=== PATIENT | male | born 1960 | race Caucasian/White ===

== ENCOUNTER 2020-03-19 12:48 | Inpatient (IN) | payer OTHER, SELFPAY ==
[2020-03-19] VITALS (38 sets, daily range): BP systolic 155–184; BP diastolic 89–109; PULSE 74–118; RESP 13–24; TEMP 36.3–36.8; O2SAT 90–100; BMI 28.8
--- NOTE | ~2020-03-19 | MR_ITS ---
EXAMINATION: MR MRCP wo/w con/w 3D wo ind DATE: 03/21/2020 13:34 INDICATION: Pancreatitis with elevated bilirubin TECHNIQUE: Magnetic resonance imaging (MRI) of the abdomen was performed without and with intravenous contrast. Sequences included coronal T2-weighted SS-FSE ARC, coronal T2-weighted FS SS-FSE, coronal T2-weighted 2D FS FIESTA, Water:Coronal LAVA-Flex, sagittal T2-weighted SS-FSE ARC, axial SSFSE ARC, axial 3D DualEcho, axial DWI B=600, axial T1-weighted LAVA, FAT:Coronal LAVA-Flex, and coronal in and opposed phase LAVA-Flex. Thick-slab T2-weighted FRFSE-XL images were obtained for magnetic resonance cholangiopancreatography (MRCP). Maximum intensity projection 3-D reconstructions of the volumetric data were created by the technologist. Postcontrast sequences included a time course of axial T1-weig hted LAVA, FAT:Coronal LAVA-Flex, coronal in and opposed phase LAVA-Flex, and Water:Coronal LAVA-Flex . COMPARISON: CT, 03/19/2020 CONTRAST: Multihance, 20 cc FINDINGS: ABDOMEN MRI: There are trace pleural effusions. The heart size is normal. There is mild atelectasis o f the lung bases. The liver, spleen, gallbladder, and adrenal glands are normal. The kidneys are unre markable. There is moderate edema around the head of the pancreas. A small amount of fluid tracks int o the retroperitoneum. There is an approximately 4.5 x 4.2 cm area of T1 signal hyperintensity in the body of the pancreas in the same distribution of the hypoattenuating area seen on the comparison CT. There is absent enhancement of the pancreas in this segment. There are no pathologically enlarged ab dominal lymph nodes. There are no dilated loops of bowel. ABDOMEN MRCP: There is no intrahepatic or extra hepatic biliary dilatation. No bile duct stone or str icture is identified. Respiratory motion artifact limits the MRCP portion of the examination. The poole creatic duct is not definitely identified in the segment affected by hemorrhagic conversion. The panc reatic duct is not dilated in the tail. IMPRESSION: 1. Acute pancreatitis now with hemorrhagic conversion in the body of the pancreas. Reviewed, dictated and finalized at location A. IMPRESSION: 1. Acute pancreatitis now with hemorrhagic conversion in the body of the pancre as.
--- NOTE | ~2020-03-19 | US_ITS ---
EXAMINATION: US right upper quadrant DATE: 03/20/2020 09:22 INDICATION: Acute pancreatitis. TECHNIQUE: Multiple grayscale and Doppler ultrasound images of the abdomen were obtained. COMPARISON: CT abdomen and pelvis 03/19/2020 FINDINGS: The head and body of the pancreas are enlarged with heterogeneous echogenicity, consistent with acute pancreatitis. There is diffuse hepatic steatosis. No liver surface nodularity. There is no rmal flow in main portal vein. The gallbladder is normal in size. No gallstones or gallbladder wall t hickening. There was no sonographic Hernandez sign. The common duct is normal and measures 3 mm. IMPRESSION: 1. Acute interstitial pancreatitis. 2. Diffuse hepatic steatosis. Reviewed, dictated and finalized at location A.
--- NOTE | ~2020-03-19 | XR_ITS ---
EXAMINATION: XR chest 2V 03/19/2020 13:53 INDICATION: Chest pain PROCEDURE: 2 view chest COMPARISON: No prior studies for comparison. FINDINGS: The lungs are clear. The cardiomediastinal silhouette is within normal limits. There are no pleural effusions. There is no pneumothorax suspected. IMPRESSION: 1: NO ACUTE CARDIOPULMONARY DISEASE. Reviewed, dictated and finalized at location A.
--- NOTE | ~2020-03-19 | CT_ITS ---
EXAMINATION: CT abdomen pelvis w con DATE: 03/19/2020 13:49 INDICATION: Left lower quadrant abdominal pain. TECHNIQUE: Computed tomography (CT) of the abdomen and pelvis was performed with 100 mL Omnipaque 350 intravenous contrast. Automated exposure control and iterative reconstruction technique were employe d. The dose-length product was 760.70 mGy-cm. COMPARISON: None. FINDINGS: The visualized portions of the lung bases demonstrate mild atelectasis. No pleural effusion . The heart size is normal. There are coronary artery calcifications. No pericardial effusion. The li prasanna and spleen are normal. The gallbladder is normal in size. There is fat stranding and a small volu me of fluid around the duodenum and pancreas with hypoattenuation in the body segment of the pancreas , consistent with acute interstitial pancreatitis. The adrenal glands and left kidney are normal. The re is a 4 mm cyst in right kidney. The prostate is mildly enlarged. There is diverticulosis of the co osito without evidence of diverticulitis. There are changes of appendectomy, but a long stump of the ap pendix remains. There is a small umbilical hernia containing fat. There is subcutaneous edema in low anterior abdominal wall. There are no pathologically enlarged lymph nodes. There is mild thoracolumba r spondylosis. IMPRESSION: 1. Acute interstitial pancreatitis. Reviewed, dictated and finalized at location A.
--- NOTE | 2020-03-19 13:03 | ECG_ITS ---
Measurements Intervals [place] Rate: 84 P: 28 [place]: 180 QRS: -12 QRSD: 105 T: 30 QT: 383 QTc: 455 Interpretive Statements SINUS RHYTHM BORDERLINE R WAVE PROGRESSION, ANTERIOR LEADS INFERIOR INFARCT, AGE INDETERMINATE BASELINE WANDER- V1-V6 ABNORMAL ECG Electronically Signed On 03-19-2020 13:14:20 CDT by Son Lopez D.O.
[2020-03-19 13:15] LABS: Basophils Percent Auto 0.3 % (0.2-1.2); Eosinophils Percent Auto 0.1 % (0-4.4); Hematocrit 50.3 % (42.0-52.0); Hemoglobin 17.6 g/dL (14.0-18.0); Immature Granulocyte Absolute 0.08 K/mm3 (0.00-0.031); Immature Granulocyte Percent A 0.5 % (0-0.5); Lymphocytes Absolute Auto 1.93 K/mm3 (0.9-3.2); Lymphocytes Percent Auto 12.7 % (18.3-44.2); Mean Corpuscular Hemoglobin 31.1 pg (26-34); Mean Corpuscular Volume 88.9 fl (80-100); Mean Platelet Volume 9.7 fl (7.4-10.4); Monocytes Percent Auto 6.4 % (2.6-8.5); Neutrophils Absolute Auto 12.2 K/mm3 (1.3-6.7); Platelet Count Result 312 k/mm3 (150-375); Red Blood Count 5.66 M/mm3 (4.6-6.20); Red Cell Distribution Width 13.3 % (11.5-14.5); White Blood Count 15.2 K/mm3 (4.5-10.0)
[2020-03-19 13:24] LABS: Partial Thromboplastin Time 24.2 SECONDS (22.3-36.8); Prothrombin Time 12.4 Seconds (11.1-14.7)
[2020-03-19 13:32] LABS: Anion Gap 9 mmol/L (8-16); Blood Urea Nitrogen 10 mg/dL (9-20); Calcium 9.2 mg/dL (8.4-10.2); Carbon Dioxide 25 mmol/L (22-30); Chloride 100 mmol/L (98-107); Estimated CRCL calculation 84 ml/min; Estimated Glomerular Filt Rate > 60; Glucose 257 mg/dL (75-110); Sodium 134 mmol/L (137-145)
[2020-03-19 13:35] LABS: Glucose Point of Care 238 (65-105)
[2020-03-19 13:48] LABS: Troponin I < 0.012 ng/mL (0.000-0.034)
[2020-03-19] MEDS: MORPHINE SULFATE (*CRX) 4 MG/ML INJ IV PUSH ×5 (14:08→22:03)
[2020-03-19 14:59] LABS: Alanine Aminotransferase 115 U/L (4-50); Albumin Level 4.3 g/dL (3.5-5.1); Alkaline Phosphatase 190 U/L (38-126); Aspartate Amino Transferase 76 U/L (17-59); Bilirubin,Total 0.6 mg/dL (0.2-1.3)
--- NOTE | 2020-03-19 15:16 | ED.GENADULT ---
HPI - General Adult General Chief complaint: Chest Pain Stated complaint: chest pain Time Seen by Provider: 03/19/20 12:58 History of Present Illness HPI narrative: Patient is a 59-year-old male who presents ER with abdominal pain. It goes from his umbilicus up into his lower chest. Began early in the morning and has slowly worsened throughout today. Associate with some nausea no vomiting. Had an episode of diaphoresis. Sweating and chest discomfort seems similar to a previous RI he has had which gave him concern. Has not been drinking alcohol. No diarrhea today but reports he had an episode of diarrhea that lasted 2 weeks up until couple days ago. Patient feels hungry and thirsty. Related Data Home Medications Medication Instructions Recorded Confirmed aspirin 325 mg PO DAILY 03/19/20 03/19/20 insulin detemir U-100 [Levemir 130 unit SUBCUT DAILY 03/19/20 03/19/20 FlexTouch U-100 Insuln] lisinopril 2.5 mg PO DAILY 03/19/20 03/19/20 rosuvastatin 20 mg PO DAILY 03/19/20 03/19/20 Allergies Allergy/AdvReac Type Severity Reaction Status Date / Time No Known Allergies Allergy Verified 03/19/20 13:13 Review of Systems Review of Systems: All systems reviewed & are unremarkable except as noted in HPI and below Constitutional: Constitutional: Denies chills, Denies fever(s) and Denies weakness ENT: Denies nasal congestion and Denies sore throat Cardiovascular: Cardiovascular: Reports chest pain, Denies rapid heart rate and Denies radiating jaw, neck or arm pain Gastrointestinal: Gastrointestinal: Reports abdominal pain, Reports diarrhea, Denies nausea and Denies vomiting PMFSH Past Medical History Medical History (Updated 03/19/20 @ 18:51 by Mika Navarrete MD) Coronary artery disease Diabetes Family History Family History (Updated 03/19/20 @ 17:57 by Daniela Malcolm RN) Mother Breast cancer Lung cancer Father Lung cancer Social History Social History Smoking status: Never smoker Drinks per week: 0 Substance use: never Gender identity (if verbalized by the patient): Male Spiritual care concerns: No Exam Narrative: Exam Narrative: GENERAL: Uncomfortable-appearing, well-nourished, and in no acute distress. HEAD: Normocephalic, atraumatic. ENT: Mucous membranes moist. CHEST: Clear to auscultation. No respiratory distress. HEART: Regular rate and rhythm. Normal peripheral pulses. ABDOMEN: Soft, mild diffuse tenderness that seems markedly worse in left lower quadrant, nondistended, normal active bowel sounds. EXTREMITIES: Normal range of motion. No edema. NEURO: Alert and oriented x3. PSYCH: Normal mood and affect. Course Course Emergency Course: Patient informed of results. Admit for observation and IV hydration while remaining n.p.o. Vital Signs Vital signs: Vital Signs Temperature 98.3 F 03/19/20 12:55 Pulse Rate 86 03/19/20 12:55 Respiratory Rate 18 03/19/20 12:55 Blood Pressure 167/104 H 03/19/20 12:55 Pulse Oximetry 100 03/19/20 12:55 Temperature 97.7 F 03/19/20 17:30 Pulse Rate 118 H 03/19/20 17:30 Respiratory Rate 24 H 03/19/20 17:30 Blood Pressure 184/96 H 03/19/20 17:30 Pulse Oximetry 99 03/19/20 17:30 Medical Decision Making Vital Signs Vital Signs: Vital Signs Temperature 98.3 F 03/19/20 12:55 Pulse Rate 86 03/19/20 12:55 Respiratory Rate 18 03/19/20 12:55 Blood Pressure 167/104 H 03/19/20 12:55 Pulse Oximetry 100 03/19/20 12:55 Temperature 97.7 F 03/19/20 17:30 Pulse Rate 118 H 03/19/20 17:30 Respiratory Rate 24 H 03/19/20 17:30 Blood Pressure 184/96 H 03/19/20 17:30 Pulse Oximetry 99 03/19/20 17:30 Lab Data Result diagrams: 03/19/20 13:08 03/19/20 13:08 Labs: Lab Results 03/19/20 03/19/20 03/19/20 Range/Units 13:00 13:08 13:08 WBC 15.2 H (4.5-10.0) K/mm3 RBC 5.66 (4.6-6.20) M/mm3 Hgb 17.6 (14.0-18.0) g/dL Hct 50.3 (42.0-
[2020-03-19 15:27] LABS: Lipase 5052 U/L (23-300)
--- NOTE | 2020-03-19 15:47 | PC.NURSE ---
Pt. stated their pain was climbing back up to a 9. EDP notified. Per EDP via verbal order readback give 4mg morphine IVP.
--- NOTE | 2020-03-19 17:14 | ADMGEN ---
This patient, Richie Walden, was admitted to Medical Room 343-01. Patient/family oriented to hospital policies and general routines including ID bracelet, bed and alarms, visiting hours, pain management, procedures, bathroom and other care routines, personal items, smoking policy, room service/diet, and visiting hours. Valuables list has been completed. Information on how to activate the Rapid Response Team has been discussed. Patient/Family are encouraged to report perceived risks to care and to ask questions if they do not understand what they are told or what they should do.
[2020-03-19 17:43] LABS: Troponin I < 0.012 ng/mL (0.000-0.034)
[2020-03-19] MEDS: SODIUM CHLORIDE 0.9% IV 1,000 ML 125 ML IV CONT (17:44)
--- NOTE | 2020-03-19 20:14 | PM.IMHP ---
H&P: HPI History of Present Illness Date/Time: 03/19/20 20:14 Chief complaint: pancreatitis Narrative: Richie Walden is a 59 year old male Who stated about 3 weeks ago he had bouts of diarrhea with abdominal pain and lasted for about 2 weeks. It. By time he came to the physician's office. He said he had abdominal cramping at that time but it was not as painful as what it is now. He stated that he did not take any antibiotics are started a new medication. He was on Pepto-Bismol. He stated that he is diabetic and that he has a history of hyperlipidemia and has his lipids checked yearly. He does not know how long ago was since he had his lipids checked. The patient stated that he does not drink any alcoholic beverages. He has not had a problems with his gallbladder. His blood sugar was 257 and then to 38. AST is 76, ALT is 115, and alkaline phosphatase 190. Lipase was 5052. He was given morphine for the discomfort. He was started on IV fluids. He was also given Zofran for the nausea. Abdominal CT scan was read as acute interstitial pancreatitis. His blood pressure has been 184/96 and 182/95. Date of service is 03/19/2020 Review of Systems Review of Systems: All systems reviewed & are unremarkable except as noted in HPI and below Constitutional: Constitutional: Reports as per HPI and Reports no additional constitutional complaints Eyes: Eyes: Reports as per HPI and Reports no additional eye complaints ENT: Reports system reviewed and no additional complaints, except as documented and Reports Normal hearing present Cardiovascular: Cardiovascular: Reports no additional cardiovascular complaints Respiratory: Respiratory: Reports no additional respiratory complaints and Reports no additional respiratory complaints Gastrointestinal: Gastrointestinal: Reports as per HPI and Reports no additional gastrointestinal complaints Musculoskeletal: Musculoskeletal: Reports no additional musculoskeletal complaints Integumentary/Breasts: Skin/Breast: Reports system reviewed and no additional complaints, except as docu and Reports as per HPI Neurologic: Reports system reviewed and no additional complaints, except as documented, Reports as per HPI and Reports Normal hearing present Psychiatric: Psychiatric: Reports no additional psychiatric complaints and Reports as per HPI Endocrine: Endocrine: Reports no additional endocrine complaints Hematologic/Lymphatic: Hematologic/Lymphatic: Reports no additional hematologic/lymphatic complaints Allergic/Immunologic: Allergic/Immunologic: Reports no additional allergic/immunologic complaints [facility] Past Medical History Medical History (Updated 03/19/20 @ 20:19 by Padma Cooley NP) Coronary artery disease Diabetes Elevated liver enzymes Hyperlipidemia Hypertension Surgical History Surgical History (Updated 03/19/20 @ 20:19 by Padma Cooley NP) History of appendectomy Family History Family History Mother Breast cancer Lung cancer Father Lung cancer Social History Social History (Updated 03/19/20 @ 20:20 by Padma Cooley NP) Social History: 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 He has 2 children who are healthy. 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 He desires to be a full code. He is a lifelong nonsmoker. He does not use any alcohol marijuana or illicit drugs. Drinks per week: 0 Substance use: never Gender identity (if verbalized by the patient): Male Spiritual care concerns: No Meds Home Medications and Allergies Home Medications Medication Instructions Recorded Confirmed Type aspirin 325 mg PO DAILY 03/19/20 03/19/20 History insulin detemir U-100 [Levemir 130 unit SUBCUT DAILY 03/19/20 03/19/20 History FlexTouch U-100 Insuln] lisinopril 2.5 mg PO DAILY 03/19/20 03/19/20 History rosuvastatin 20 mg PO DAILY 03/19/20 03/19/20 History A
[2020-03-19 20:48] LABS: Troponin I < 0.012 ng/mL (0.000-0.034)
[2020-03-19 22:26] LABS: Glucose Point of Care 251 (65-105)
[2020-03-20] VITALS (7 sets, daily range): BP systolic 165–185; BP diastolic 86–98; PULSE 101–124; RESP 16–20; TEMP 37.5–38.2; O2SAT 93–96
[2020-03-20] MEDS: MORPHINE SULFATE (*CRX) 4 MG/ML INJ IV PUSH ×8 (00:02→22:36)
[2020-03-20] MEDS: INSULIN ASPART (*BKC) 100 UNITS/ML SUB-Q ×5 (00:07→23:43)
[2020-03-20 00:47] LABS: Glucose Point of Care 275 (65-105)
[2020-03-20] MEDS: SODIUM CHLORIDE 0.9% IV 1,000 ML 125 ML IV CONT ×3 (01:51→19:24)
[2020-03-20 05:41] LABS: Basophils Percent Auto 0.1 % (0.2-1.2); Hematocrit 47.7 % (42.0-52.0); Hemoglobin 16.4 g/dL (14.0-18.0); Immature Granulocyte Absolute 0.16 K/mm3 (0.00-0.031); Immature Granulocyte Percent A 0.8 % (0-0.5); Lymphocytes Absolute Auto 1.29 K/mm3 (0.9-3.2); Lymphocytes Percent Auto 6.1 % (18.3-44.2); Mean Corpuscular HGB Conc 34.4 g/dl (32-36); Mean Corpuscular Hemoglobin 30.5 pg (26-34); Mean Corpuscular Volume 88.8 fl (80-100); Mean Platelet Volume 9.7 fl (7.4-10.4); Monocytes Absolute Auto 1.3 K/mm3 (0.1-0.6); Monocytes Percent Auto 6.1 % (2.6-8.5); Neutrophils Absolute Auto 18.4 K/mm3 (1.3-6.7); Neutrophils Percent Auto 86.9 % (45.5-73.1); Platelet Count Result 295 k/mm3 (150-375); Red Blood Count 5.37 M/mm3 (4.6-6.20); Red Cell Distribution Width 13.2 % (11.5-14.5); White Blood Count 21.2 K/mm3 (4.5-10.0)
[2020-03-20 06:10] LABS: LDL Cholesterol Direct 64 mg/dL
[2020-03-20 06:13] LABS: Alanine Aminotransferase 69 U/L (4-50); Albumin Level 3.5 g/dL (3.5-5.1); Alkaline Phosphatase 129 U/L (38-126); Anion Gap 7 mmol/L (8-16); Aspartate Amino Transferase 39 U/L (17-59); Bilirubin,Total 1.3 mg/dL (0.2-1.3); Blood Urea Nitrogen 13 mg/dL (9-20); Calcium 8.9 mg/dL (8.4-10.2); Carbon Dioxide 24 mmol/L (22-30); Chloride 101 mmol/L (98-107); Cholesterol 118 mg/dL (0-200); Estimated CRCL calculation 93 ml/min; Estimated Glomerular Filt Rate > 60; Glucose 294 mg/dL (75-110); HDL Direct 31 mg/dL; Magnesium 1.5 mg/dL (1.6-2.3); Potassium 4.6 mmol/L (3.4-5.0); Sodium 132 mmol/L (137-145); Triglycerides 78 mg/dL (<150)
[2020-03-20 06:18] LABS: Glucose Point of Care 308 (65-105)
[2020-03-20 06:18] LABS: Glucose Point of Care 290 (65-105)
[2020-03-20 06:30] LABS: Lipase 3172 U/L (23-300)
[2020-03-20 07:02] LABS: Thyroid Stimulating Hormone Reflex 0.666 uIU/mL (0.465-4.68)
[2020-03-20 07:03] LABS: Hepatitis B Surface Antigen Negative (Negative)
[2020-03-20 07:08] LABS: HAV RESULT Negative (Negative); Hepatitis B Core IgM Result Negative (Negative)
[2020-03-20 07:20] LABS: Hepatitis C Virus Antibody Negative (Negative)
[2020-03-20 07:52] LABS: Hemoglobin A1C 7.2 % (<5.7)
[2020-03-20] MEDS: MAGNESIUM SULF 2 GM/WATER 50ML 2 GM/50 ML BAG IVPB (11:11)
[2020-03-20 11:55] LABS: Glucose Point of Care 262 (65-105)
--- NOTE | 2020-03-20 16:12 | PM.IMPN ---
Progress Note: A&P Assessment and Plan (1) Acute pancreatitis: Code(s): K85.90 - Acute pancreatitis without necrosis or infection, unspecified Status: Acute Assessment and Plan: assumed idiopathic. Lipids normal, no gallstones on US. And no history of ETOH. Continue aggressive hydration and monitor (2) Hypertension: Code(s): I10 - Essential (primary) hypertension Status: Chronic Assessment and Plan: p.r.n. hydralazine. may need to increase his PATIENCE-inhibitor later (3) Diabetes: Code(s): E11.9 - Type 2 diabetes mellitus without complications Status: Chronic Assessment and Plan: sliding scale and will resume his Levemir on a lesser dose 20 b.i.d. history of taking 130 units daily (4) Elevated liver enzymes: Code(s): R74.8 - Abnormal levels of other serum enzymes Status: Acute Assessment and Plan: LFTs are falling and could be secondary to the pancreatitis but also has fatty infiltration of the liver on his ultrasound. Hepatitis AB and C negative and patient has been on a statin too (5) DVT prophylaxis: Code(s): Z29.9 - Encounter for prophylactic measures, unspecified Status: Acute Assessment and Plan: Lovenox Subjective Date/time seen: 03/20/20 16:12 Interval history: date of visit 03/20. 59-year-old diabetic admitted with abdominal pain and found to have pancreatitis by lab in CT scan. Feels slightly better this a.m.. No gas or bowel movement and still nauseated though. Exam Narrative: Exam Narrative: Blood pressure 160/86 pulse is 104 saturating 96% on room air a febrile pupils equal reactive to light sclera anicteric lungs clear CV regular rate rhythm no murmurs abdomen soft is tenderness in the epigastric area bowel sounds present but decreased extremities without edema distal pulses 2+ neuro alert cooperative no focal deficits Objective Data Vital Signs Vital Signs: Vital Signs - 24 hr 03/19/20 16:15 03/19/20 16:16 03/19/20 16:30 Temperature Pulse Rate 75 75 78 Respiratory Rate 16 16 16 Blood Pressure 181/101 H Pulse Oximetry 03/19/20 16:31 03/19/20 16:45 03/19/20 16:46 Temperature Pulse Rate 80 83 80 Respiratory Rate 20 18 21 H Blood Pressure 182/102 H 176/99 H Pulse Oximetry 99 99 03/19/20 17:00 03/19/20 17:01 03/19/20 17:21 Temperature Pulse Rate 80 78 Respiratory Rate 16 17 Blood Pressure 176/104 H Pulse Oximetry 99 100 03/19/20 17:30 03/19/20 19:50 03/20/20 05:19 Temperature 36.5 C 36.3 C L 37.5 C Pulse Rate 118 H 88 107 H Respiratory Rate 24 H 16 16 Blood Pressure 184/96 H 182/95 H 165/86 H Pulse Oximetry 99 97 96 03/20/20 15:05 03/20/20 15:06 03/20/20 15:36 Temperature 38.2 C H 38.2 C H 37.5 C Pulse Rate 104 H Respiratory Rate 18 Blood Pressure 169/93 H Pulse Oximetry 95 Intake/Output Intake/Output: Intake & Output 03/17/20 03/18/20 03/19/20 03/20/20 23:59 23:59 23:59 23:59 Intake Total 2350 Output Total 1450 Balance 900 Meds/Results Medications: Active Medications Generic Name Dose Route Start Last Admin Trade Name Freq PRN Reason Stop Dose Admin Dextrose 12.5 gm 03/19/20 20:08 Dextrose 50% Syringe IV PUSH PRN PRN Hypoglycemia Protocol Glucagon 1 mg 03/19/20 20:08 Glucagon For Inj IM PRN PRN Hypoglycemia Protocol Glucose 15 gm 03/19/20 20:08 Glutose 15 PO PRN PRN Hypoglycemia Protocol Hydralazine HCl 10 mg 03/19/20 20:30 Apresoline Hcl Inj IV PUSH Q8H PRN Blood Pressure - High Sodium Chloride 1,000 mls @ 125 mls/hr 03/19/20 15:20 03/20/20 12:11 Normal Saline Iv IV CONT 125 mls/hr .Q8H BAHMAN Infusion Dextrose 1,000 mls @ 100 mls/hr 03/19/20 20:08 Dextrose 5% 1,000 Ml IVPB PRN PRN Hypoglycemia Protocol Insulin Aspart 2 - 5 units 03/20/20 00:00 03/20/20 11:16 Novolog SUB-Q 3
[2020-03-20 17:57] LABS: Glucose Point of Care 274 (65-105)
[2020-03-20] MEDS: INSULIN DETEMIR 100 UNITS/ML 20 UNITS SUB-Q (18:03)
[2020-03-20] MEDS: ENOXAPARIN 40 MG/0.4 ML SYRINGE SUB-Q (21:18)
[2020-03-20] MEDS: hydrALAZINE HCL 20 MG/ML VIAL 10 MG IV PUSH (21:35)
[2020-03-20 23:47] LABS: Glucose Point of Care 252 (65-105)
[2020-03-21] VITALS (18 sets, daily range): BP systolic 117–171; BP diastolic 81–111; PULSE 88–208; RESP 16–18; TEMP 36.4–37.2; O2SAT 94–97
--- NOTE | 2020-03-21 | ECHO_ITS ---
Patient Info Name: Richie Walden Age: 59 years : 1960 Gender: Male Ht: 75 in Wt: 230 lbs BSA: 2.37 m2 HR: 104 bpm BP: 144 / 88 mmHg Technical Quality: Good Exam Date: 03/21/2020 11:48 AM Exam Location: [facility] Patient Status: Inpatient Admit Date: 03/19/2020 Staff Ordering Physician: Vadim Jim MD Mat Sewer: Felecia Dc RDCS Attending Provider: Kathi Danielson MD Referring Physician: Hernán MART; Exam Type: CA echo doppler color flow Study Info Complete two-dimensional, color flow and Doppler transthoracic echocardiogram is performed. Summary 1. Complete two-dimensional, color flow and Doppler transthoracic echocardiogram is performed. 2. Left ventricular systolic function is normal, estimated at 55-60%. 3. There is moderately increased left ventricular wall thickness. 4. Left ventricular septal wall motion is abnormal. Basal inf wall hypokinesia. 5. Right ventricular chamber dimension is normal. 6. Right ventricular systolic function is normal. Left Ventricle Left ventricular chamber dimension is normal. Left ventricular systolic function is normal, estimated at 55-60%. There is moderately increased left ventricular wall thickness. Left ventricular septal wall motion is abnormal. Basal inf wall hypokinesia. The left ventricular diastolic function is normal. Right Ventricle Right ventricular chamber dimension is normal. Right ventricular systolic function is normal. Left Atria Left atrial chamber dimension is normal. Right Atria Right atrial chamber dimension is normal. Aortic Valve The aortic valve is trileaflet. There is no aortic valve sclerosis. There is no aortic valve stenosis. There is no aortic valve regurgitation. Pulmonic Valve The pulmonic valve is normal. There is no pulmonic valve stenosis. There is no pulmonic regurgitation. Mitral Valve The mitral valve has normal leaflets. There is no mitral valve stenosis. There is trace mitral valve regurgitation. Tricuspid Valve The tricuspid valve leaflets are normal. There is no significant tricuspid valve stenosis. There is no tricuspid valve regurgitation. No pulmonary hypertension, estimated pulmonary arterial systolic pressure is 28 mmHg. Pericardium/Pleural The pericardium appears normal. There is no pericardial effusion. Inferior Vena Cava Normal inferior vena cava with >50% collapse upon inspiration consistent with normal right atrial pressure, 3 mmHg. Aorta The aortic root size at the sinus of Valsalva is normal. The prox ascending aorta size is normal. Left Ventricular Outflow Tract Name Value Normal LVOT 2D LVOT Diameter 2.4 cm LVOT Doppler LVOT Peak Gradient 5 mmHg LVOT Mean Gradient 2 mmHg LVOT VTI 17 cm LVOT VTI/AV VTI Ratio 1.1 LVOT Stroke Volume 75 ml LVOT CO 7.2 l/min LVOT CI 3.1 l/min/m2 Pulmonic Valve
[2020-03-21] MEDS: SODIUM CHLORIDE 0.9% IV 1,000 ML 125 ML IV CONT ×3 (03:51→21:09)
[2020-03-21 05:53] LABS: Basophils Percent Auto 0.2 % (0.2-1.2); Eosinophils Absolute Auto 0.1 K/mm3 (0-0.3); Eosinophils Percent Auto 0.7 % (0-4.4); Hemoglobin 15.5 g/dL (14.0-18.0); Immature Granulocyte Absolute 0.12 K/mm3 (0.00-0.031); Immature Granulocyte Percent A 0.6 % (0-0.5); Lymphocytes Absolute Auto 1.25 K/mm3 (0.9-3.2); Lymphocytes Percent Auto 6.8 % (18.3-44.2); Mean Corpuscular HGB Conc 34.4 g/dl (32-36); Mean Corpuscular Hemoglobin 31.3 pg (26-34); Mean Corpuscular Volume 90.9 fl (80-100); Mean Platelet Volume 9.9 fl (7.4-10.4); Monocytes Absolute Auto 1.3 K/mm3 (0.1-0.6); Monocytes Percent Auto 7.1 % (2.6-8.5); Neutrophils Absolute Auto 15.7 K/mm3 (1.3-6.7); Neutrophils Percent Auto 84.6 % (45.5-73.1); Platelet Count Result 249 k/mm3 (150-375); Red Blood Count 4.95 M/mm3 (4.6-6.20); Red Cell Distribution Width 13.6 % (11.5-14.5); White Blood Count 18.5 K/mm3 (4.5-10.0)
[2020-03-21] MEDS: MORPHINE SULFATE (*CRX) 4 MG/ML INJ IV PUSH ×5 (05:56→22:26)
[2020-03-21] MEDS: INSULIN ASPART (*BKC) 100 UNITS/ML SUB-Q ×4 (05:57→20:13)
[2020-03-21 06:07] LABS: Alanine Aminotransferase 48 U/L (4-50); Albumin Level 3.4 g/dL (3.5-5.1); Alkaline Phosphatase 114 U/L (38-126); Anion Gap 9 mmol/L (8-16); Aspartate Amino Transferase 50 U/L (17-59); Bilirubin,Total 2.9 mg/dL (0.2-1.3); Blood Urea Nitrogen 13 mg/dL (9-20); Calcium 8.6 mg/dL (8.4-10.2); Carbon Dioxide 24 mmol/L (22-30); Chloride 100 mmol/L (98-107); Estimated CRCL calculation 93 ml/min; Estimated Glomerular Filt Rate > 60; Glucose 234 mg/dL (75-110); Lipase 518 U/L (23-300); Magnesium 1.9 mg/dL (1.6-2.3); Phosphorus 2.8 mg/dL (2.5-4.5); Potassium 4.2 mmol/L (3.4-5.0); Sodium 133 mmol/L (137-145)
[2020-03-21 08:06] LABS: Glucose Point of Care 216 (65-105)
[2020-03-21 08:17] LABS: Glucose Point of Care 221 (65-105)
[2020-03-21] MEDS: INSULIN DETEMIR 100 UNITS/ML 20 UNITS SUB-Q ×2 (08:20→20:11)
--- NOTE | 2020-03-21 08:50 | ECG_ITS ---
Measurements Intervals [place] Rate: 209 P: [place]: 0 QRS: 49 QRSD: 116 T: -40 QT: 217 QTc: 405 Interpretive Statements SUPRAVENTRICULAR TACHYCARDIA INTRAVENTRICULAR CONDUCTION DELAY BORDERLINE R WAVE PROGRESSION, ANTERIOR LEADS BORDERLINE T WAVE ABNORMALITY- INFERIOR LEADS BASELINE WANDER- V1-V6 ABNORMAL ECG Electronically Signed On 03-21-2020 10:54:11 CDT by Son Lopez D.O.
[2020-03-21] MEDS: hydrALAZINE HCL 20 MG/ML VIAL 10 MG IV PUSH (08:51)
[2020-03-21] MEDS: METOPROLOL TARTRATE INJ 5 MG/5 ML VIAL IV PUSH ×5 (09:05→17:37)
[2020-03-21] MEDS: METOPROLOL TARTRATE 25 MG TABLET PO ×2 (10:22→17:40)
[2020-03-21] MEDS: lisinopriL 2.5 MG TABLET PO (10:23)
[2020-03-21 12:35] LABS: Glucose Point of Care 254 (65-105)
--- NOTE | 2020-03-21 14:39 | PM.IMPN ---
Progress Note: A&P Assessment and Plan (1) Acute pancreatitis: Code(s): K85.90 - Acute pancreatitis without necrosis or infection, unspecified Status: Acute Assessment and Plan: assumed idiopathic. Lipids normal, no gallstones on US. And no history of ETOH. Continue aggressive hydration and MRCP today with isolated bili elevation (2) Hypertension: Code(s): I10 - Essential (primary) hypertension Status: Chronic Assessment and Plan: p.r.n. hydralazine. and added beta neal today (3) Diabetes: Code(s): E11.9 - Type 2 diabetes mellitus without complications Status: Chronic Assessment and Plan: sliding scale and will resumed Levemir on a lesser dose 20 b.i.d. 03/20 ,history of taking 130 units daily BS consistantly in 200s (4) Elevated liver enzymes: Code(s): R74.8 - Abnormal levels of other serum enzymes Status: Acute Assessment and Plan: LFTs normal except bili and could be secondary to the pancreatitis but also has fatty infiltration of the liver on his ultrasound. Hepatitis AB and C negative and patient has been on a statin too As above MRCP today (5) DVT prophylaxis: Code(s): Z29.9 - Encounter for prophylactic measures, unspecified Status: Acute Assessment and Plan: Lovenox (6) SVT (supraventricular tachycardia): Code(s): I47.1 - Supraventricular tachycardia Status: Acute Assessment and Plan: episode of SVT today with no CP , converted back to SR with IV metoprolol and will schedule po,check echo and thryoid Subjective Date/time seen: 03/21/20 14:39 Interval history: date of visit 03/21. 59-year-old diabetic admitted with abdominal pain and found to have pancreatitis by lab and CT scan. Feels slightly better this a.m.. some gas, less pain and feels better overall. Exam Narrative: Exam Narrative: Blood pressure 118/82 pulse is 96 saturating 96% on room air a febrile pupils equal reactive to light sclera anicteric lungs clear CV regular rate rhythm no murmurs abdomen soft , tenderness in the epigastric area less, bowel sounds present but decreased extremities without edema distal pulses 2+ neuro alert cooperative no focal deficits Objective Data Vital Signs Vital Signs: Vital Signs - 24 hr 03/20/20 15:05 03/20/20 15:06 03/20/20 15:36 Temperature 38.2 C H 38.2 C H 37.5 C Pulse Rate 104 H Respiratory Rate 18 Blood Pressure 169/93 H Pulse Oximetry 95 03/20/20 21:12 03/20/20 23:41 03/20/20 23:55 Temperature 37.5 C 37.8 C H 37.7 C H Pulse Rate 101 H 124 H Respiratory Rate 18 20 Blood Pressure 179/89 H 185/98 H Pulse Oximetry 96 93 03/21/20 00:25 03/21/20 05:18 03/21/20 08:50 Temperature 36.6 C 36.4 C L Pulse Rate 109 H 113 H 205 H Respiratory Rate 18 18 Blood Pressure 151/86 H 171/95 H 152/111 H Pulse Oximetry 96 94 03/21/20 09:05 03/21/20 09:43 03/21/20 09:45 Temperature Pulse Rate 208 H 109 H 109 H Respiratory Rate Blood Pressure 142/93 H Pulse Oximetry 03/21/20 09:51 03/21/20 09:53 03/21/20 10:22 Temperature Pulse Rate 95 96 104 H Respiratory Rate Blood Pressure 144/88 H Pulse Oximetry 97 03/21/20 12:00 03/21/20 13:50 03/21/20 14:08 Temperature 36.8 C Pulse Rate 105 H 185 H 186 H Respiratory Rate 16 Blood Pressure 117/89 Pulse Oximetry 94 Intake/Output Intake/Output: Intake & Output 03/18/20 03/19/20 03/20/20 03/21/20 23:59 23:59 23:59 23:59 Intake Total 3350 2100 Output Total 2125 575 Balance 1225 1525 Meds/Results Medications: Active Medications Generic Name Dose Route Start Last Admin Trade Name Freq PRN Reason Stop Dose Admin Dextrose 12.5 gm 03/19/20 20:08 Dextrose 50% Syringe IV PUSH PRN PRN Hypoglycemia Protocol Enoxaparin Sodium 40 mg 03/20/20 21:00 03/20/20 21:18 Lovenox SUB-Q 40 mg HS BAHMAN Administration Glucagon 1 mg
[2020-03-21 16:32] LABS: Glucose Point of Care 259 (65-105)
[2020-03-21] MEDS: METOPROLOL TARTRATE 50 MG TAB PO (20:07)
[2020-03-22] VITALS (15 sets, daily range): BP systolic 136–168; BP diastolic 77–95; PULSE 78–190; RESP 16–18; TEMP 36.2–36.8; O2SAT 96–98
[2020-03-22] MEDS: MORPHINE SULFATE (*CRX) 4 MG/ML INJ IV PUSH ×4 (00:26→07:43)
[2020-03-22 01:26] LABS: Glucose Point of Care 219 (65-105)
[2020-03-22] MEDS: SODIUM CHLORIDE 0.9% IV 1,000 ML 125 ML IV CONT (05:01)
[2020-03-22 06:36] LABS: Basophils Percent Auto 0.2 % (0.2-1.2); Eosinophils Percent Auto 0.3 % (0-4.4); Hematocrit 39.6 % (42.0-52.0); Hemoglobin 13.4 g/dL (14.0-18.0); Immature Granulocyte Absolute 0.13 K/mm3 (0.00-0.031); Lymphocytes Absolute Auto 1.39 K/mm3 (0.9-3.2); Lymphocytes Percent Auto 11.1 % (18.3-44.2); Mean Corpuscular HGB Conc 33.8 g/dl (32-36); Mean Corpuscular Hemoglobin 30.6 pg (26-34); Mean Corpuscular Volume 90.4 fl (80-100); Mean Platelet Volume 10.2 fl (7.4-10.4); Monocytes Percent Auto 7.7 % (2.6-8.5); Neutrophils Percent Auto 79.7 % (45.5-73.1); Platelet Count Result 219 k/mm3 (150-375); Red Blood Count 4.38 M/mm3 (4.6-6.20); Red Cell Distribution Width 13.3 % (11.5-14.5); White Blood Count 12.5 K/mm3 (4.5-10.0)
[2020-03-22 06:50] LABS: Alanine Aminotransferase 38 U/L (4-50); Albumin Level 2.8 g/dL (3.5-5.1); Alkaline Phosphatase 90 U/L (38-126); Anion Gap 2 mmol/L (8-16); Aspartate Amino Transferase 41 U/L (17-59); Bilirubin,Total 1.2 mg/dL (0.2-1.3); Blood Urea Nitrogen 13 mg/dL (9-20); Calcium 8.2 mg/dL (8.4-10.2); Carbon Dioxide 26 mmol/L (22-30); Chloride 102 mmol/L (98-107); Estimated CRCL calculation 103 ml/min; Estimated Glomerular Filt Rate > 60; Glucose 155 mg/dL (75-110); Lipase 132 U/L (23-300); Magnesium 1.9 mg/dL (1.6-2.3); Phosphorus 2.1 mg/dL (2.5-4.5); Potassium 3.6 mmol/L (3.4-5.0); Sodium 130 mmol/L (137-145)
--- NOTE | 2020-03-22 07:00 | ECG_ITS ---
Measurements Intervals [place] Rate: 84 P: 21 RI: 172 QRS: 26 QRSD: 118 T: 15 QT: 406 QTc: 482 Interpretive Statements SINUS RHYTHM ATRIAL PREMATURE COMPLEXES INFERIOR INFARCT, AGE INDETERMINATE BASELINE WANDER- V4-V6 ABNORMAL ECG Electronically Signed On 03-22-2020 7:52:00 CDT by Son Lopez D.O.
[2020-03-22 07:18] LABS: Free T4 Free Thyroxine 1.26 ng/mL (0.78-2.19)
[2020-03-22 07:55] LABS: Glucose Point of Care 167 (65-105)
[2020-03-22] MEDS: INSULIN DETEMIR 100 UNITS/ML 20 UNITS SUB-Q (07:58)
[2020-03-22] MEDS: lisinopriL 2.5 MG TABLET PO (08:24)
[2020-03-22] MEDS: METOPROLOL TARTRATE 50 MG TAB PO ×2 (08:24→16:36)
[2020-03-22] MEDS: POTASSIUM PHOS,M-BASIC-D-BASIC 20 MMOL in SODIUM CHLORIDE 0.9% IV 250 ML 64 MMOL IVPB (10:13)
--- NOTE | 2020-03-22 12:20 | WPDGICN ---
Assessment and Plan Assessment and plan (1) Acute pancreatitis: Code(s): K85.90 - Acute pancreatitis without necrosis or infection, unspecified Status: Acute Assessment and Plan: he is doing much better, MRCP showed edema head of pancreas and possible hemorrhagic conversion in the body of the pancreas but liver enzymes improved, hb stable. repeat blood work again in the morning and reassess clinical response if he is doing ok then i will recommend to repeat imaging in 6-8 weeks no need to proceed with ercp now unless change in clinical status, raising bilirubin, bleeding, etc unknown etiology of pancreatitis (no etoh, normal TG) probably due to diabetes. 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 About 4 weeks ago had episode of diarrhea with abdominal pain but resolved. He came ot ER with new onset of severe pain epigastric area with radiation to his back and nausea, blood work in ER showed glucose 257, AST is 76, ALT is 115, and alkaline phosphatase 190 (normalized now), bili 2.9 peak but now 1.2. Lipase was 5052. Abdominal CT scan was read as acute interstitial pancreatitis and admitted to the hospital 3 days ago. MRCP yesterday showed pancreatitis with hemorrhagic conversion in the body of the pancreas (moderate edema around the head of the pancreas. A small amount of fluid tracks into the retroperitoneum. There is an approximately 4.5 x 4.2 cm area of T1 signal hyperintensity in the body of the pancreas) but normal bile duct, no strictures. Symptomatically he is doing much better, no more nausea and tolerating liquid diet, pain is improved. TG level normal, he denies alcohol and never had pancreatitis. Last colonoscopy about 5 years ago. Review of Systems Constitutional: Constitutional: Denies headache(s) and Denies weakness Eyes: Eyes: Denies blurry vision ENT: Reports Normal hearing present, Denies headache(s) and Denies neck pain Cardiovascular: Cardiovascular: Denies chest pain and Denies dyspnea Respiratory: Respiratory: Denies dyspnea Gastrointestinal: Gastrointestinal: Reports no additional gastrointestinal complaints Genitourinary: Genitourinary: Denies dysuria Musculoskeletal: Musculoskeletal: Denies neck pain Integumentary/Breasts: Skin/Breast: Denies dry skin Neurologic: Reports Normal hearing present, Denies headache(s) and Denies weakness Psychiatric: Psychiatric: Denies anxiety Endocrine: Endocrine: Denies change in body appearance Hematologic/Lymphatic: Hematologic/Lymphatic: Denies easy bleeding Allergic/Immunologic: Allergic/Immunologic: Denies urticaria PMFSH Past Medical History Medical History (Updated 03/22/20 @ 12:27 by Braulio Ortega MD) Coronary artery disease Diabetes Diabetes mellitus type 2 with complications, uncontrolled Elevated liver enzymes Hyperlipidemia Hypertension Pancreatic abnormality Upper abdominal pain Surgical History Surgical History (Updated 03/19/20 @ 20:19 by
[2020-03-22 14:08] LABS: Glucose Point of Care 239 (65-105)
[2020-03-22] MEDS: INSULIN ASPART (*BKC) 100 UNITS/ML SUB-Q ×2 (14:08→17:21)
[2020-03-22] MEDS: hydrALAZINE HCL 20 MG/ML VIAL 10 MG IV PUSH (14:10)
[2020-03-22] MEDS: HYDROcodone/acetaminophen (*CRX) 5-325 MG TABLET 1 TAB PO ×2 (14:37→22:02)
--- NOTE | 2020-03-22 16:04 | PM.IMPN ---
Progress Note: A&P Assessment and Plan (1) Acute pancreatitis: Code(s): K85.90 - Acute pancreatitis without necrosis or infection, unspecified Status: Acute Assessment and Plan: assumed idiopathic. Lipids normal, no gallstones on US. And no history of ETOH. Continue aggressive hydration and MRCP 03/21 small area of hemorrhage but no ductal stenosis or stones (2) Hypertension: Code(s): I10 - Essential (primary) hypertension Status: Chronic Assessment and Plan: p.r.n. hydralazine. and added beta neal 03/21 and increasing (3) Diabetes: Code(s): E11.9 - Type 2 diabetes mellitus without complications Status: Chronic Assessment and Plan: sliding scale and resumed Levemir on a lesser dose 20 b.i.d. 03/20 ,history of taking 130 units daily BS consistantly in 200s (4) Elevated liver enzymes: Code(s): R74.8 - Abnormal levels of other serum enzymes Status: Acute Assessment and Plan: LFTs normal today and secondary to the pancreatitis but also has fatty infiltration of the liver on his ultrasound. Hepatitis AB and C negative and patient has been on a statin too As above MRCP 03/21 no change (5) DVT prophylaxis: Code(s): Z29.9 - Encounter for prophylactic measures, unspecified Status: Acute Assessment and Plan: Lovenox stopped with hemorrhage on MRCP (6) SVT (supraventricular tachycardia): Code(s): I47.1 - Supraventricular tachycardia Status: Acute Assessment and Plan: episode of SVT 03/21 with no CP , converted back to SR with IV metoprolol and scheduled po, echo normal EF with some infer wall hypo with hx of stent 2009, thyroid ok Subjective Date/time seen: 03/22/20 16:04 Interval history: date of visit 03/22. 59-year-old diabetic admitted with abdominal pain and found to have pancreatitis by lab and CT scan. Feels better this a.m.. some gas, less pain and feels better overall.and tolerated clear liquids Exam Narrative: Exam Narrative: Blood pressure 160/90 pulse is 86 saturating 96% on room air a febrile pupils equal reactive to light sclera anicteric lungs clear CV regular rate rhythm no murmurs abdomen soft , minimal tenderness in the epigastric area less, bowel sounds present and increased extremities without edema distal pulses 2+ neuro alert cooperative no focal deficits Objective Data Vital Signs Vital Signs: Vital Signs - 24 hr 03/21/20 17:37 03/21/20 17:40 03/21/20 20:00 Temperature Pulse Rate 102 H 102 H 91 Respiratory Rate Blood Pressure Pulse Oximetry 03/21/20 20:06 03/21/20 20:07 03/22/20 00:00 Temperature 37.2 C Pulse Rate 88 88 83 Respiratory Rate 16 Blood Pressure 130/81 Pulse Oximetry 96 03/22/20 00:22 03/22/20 04:00 03/22/20 05:06 Temperature 36.2 C L Pulse Rate 87 84 Respiratory Rate 16 Blood Pressure 136/77 143/82 H Pulse Oximetry 97 03/22/20 08:00 03/22/20 08:24 03/22/20 12:00 Temperature Pulse Rate 94 98 89 Respiratory Rate Blood Pressure Pulse Oximetry 03/22/20 14:00 03/22/20 15:20 03/22/20 16:00 Temperature 36.8 C Pulse Rate 89 108 H Respiratory Rate 16 Blood Pressure 166/95 H 168/91 H Pulse Oximetry 96 Intake/Output Intake/Output: Intake & Output 03/19/20 03/20/20 03/21/20 03/22/20 23:59 23:59 23:59 23:59 Intake Total 3350 3350 2725 Output Total 2125 1150 Balance 1225 2200 2725 Meds/Results Medications: Active Medications Generic Name Dose Route Start Last Admin Trade Name Freq PRN Reason Stop Dose Admin Hydrocodone Bitart/Acetaminophen 1 tab 03/22/20 09:11 03/22/20 14:37 [place] 5-325 Mg PO 1 tab Q4H PRN Administration Pain Rated 4-6 Dextrose 12.5 gm 03/19/20 20:08 Dextrose 50% Syringe IV PUSH PRN PRN Hypoglycemia Protocol Glucagon 1 mg 03/19/20 20:08 Glucagon For Inj IM PRN PRN Hypoglycemia P
[2020-03-22] MEDS: METOPROLOL TARTRATE INJ 5 MG/5 ML VIAL IV PUSH (17:14)
[2020-03-22 17:24] LABS: Glucose Point of Care 227 (65-105)
[2020-03-22] MEDS: LORazepam (*CRX) 0.5 MG TABLET PO (18:08)
[2020-03-22] MEDS: METOPROLOL TARTRATE 50 MG TAB 100 MG PO (21:54)
[2020-03-22] MEDS: INSULIN DETEMIR 100 UNITS/ML 30 UNITS SUB-Q (21:55)
[2020-03-22 22:19] LABS: Glucose Point of Care 194 (65-105)
[2020-03-23] VITALS (16 sets, daily range): BP systolic 129–168; BP diastolic 88–96; PULSE 76–196; RESP 16–18; TEMP 36.1–36.6; O2SAT 98–100
[2020-03-23] MEDS: LORazepam (*CRX) 0.5 MG TABLET PO (01:40)
[2020-03-23 06:02] LABS: Basophils Percent Auto 0.3 % (0.2-1.2); Eosinophils Absolute Auto 0.1 K/mm3 (0-0.3); Eosinophils Percent Auto 0.8 % (0-4.4); Hematocrit 43.6 % (42.0-52.0); Hemoglobin 14.8 g/dL (14.0-18.0); Immature Granulocyte Absolute 0.09 K/mm3 (0.00-0.031); Immature Granulocyte Percent A 0.8 % (0-0.5); Lymphocytes Absolute Auto 1.64 K/mm3 (0.9-3.2); Lymphocytes Percent Auto 13.7 % (18.3-44.2); Mean Corpuscular HGB Conc 33.9 g/dl (32-36); Mean Corpuscular Hemoglobin 30.6 pg (26-34); Mean Corpuscular Volume 90.3 fl (80-100); Mean Platelet Volume 10.3 fl (7.4-10.4); Monocytes Absolute Auto 1.1 K/mm3 (0.1-0.6); Monocytes Percent Auto 9.3 % (2.6-8.5); Neutrophils Percent Auto 75.1 % (45.5-73.1); Platelet Count Result 274 k/mm3 (150-375); Red Blood Count 4.83 M/mm3 (4.6-6.20); Red Cell Distribution Width 13.2 % (11.5-14.5); White Blood Count 11.9 K/mm3 (4.5-10.0)
[2020-03-23 06:21] LABS: Anion Gap 8 mmol/L (8-16); Blood Urea Nitrogen 11 mg/dL (9-20); Calcium 8.6 mg/dL (8.4-10.2); Carbon Dioxide 30 mmol/L (22-30); Chloride 94 mmol/L (98-107); Estimated CRCL calculation 103 ml/min; Estimated Glomerular Filt Rate > 60; Glucose 156 mg/dL (75-110); Phosphorus 3.3 mg/dL (2.5-4.5); Potassium 3.5 mmol/L (3.4-5.0); Sodium 132 mmol/L (137-145)
[2020-03-23 08:00] LABS: Glucose Point of Care 177 (65-105)
[2020-03-23] MEDS: METOPROLOL TARTRATE 50 MG TAB 100 MG PO (08:21)
[2020-03-23] MEDS: lisinopriL 2.5 MG TABLET PO (08:22)
[2020-03-23] MEDS: INSULIN DETEMIR 100 UNITS/ML 30 UNITS SUB-Q ×2 (08:24→20:49)
[2020-03-23] MEDS: METOPROLOL TARTRATE INJ 5 MG/5 ML VIAL IV PUSH ×2 (09:20→16:44)
[2020-03-23] MEDS: POTASSIUM CHLORIDE 20 MEQ TABLET 40 MEQ PO (09:21)
[2020-03-23] MEDS: MAGNESIUM SULF 2 GM/WATER 50ML 2 GM/50 ML BAG IVPB (10:38)
[2020-03-23 11:43] LABS: Glucose Point of Care 213 (65-105)
[2020-03-23] MEDS: INSULIN ASPART (*BKC) 100 UNITS/ML SUB-Q ×2 (11:56→20:51)
--- NOTE | 2020-03-23 12:52 | PM.CNCAR ---
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 One time, brief, symptomatic probable aberrantly conducted SVT at around 260-280bpm clearly different than his previously documented SVT. Given h/o CAD/MA Class IC antiarrythmics contraindicated and will be avoided. Amiodarone best option if antiarrhythmic therapy required. Cont Metoprolol tartrate, increase to 150mg BID. Monitor on telemetry for control for 24 hours. Outpatient 14 shelter monitor to track for recurrent sustained very rapid SVT which may prove problematic. Keep K+ and Mg2+ near 4 and 2, respectively. EF normal, hemodynamically stable and well tolerated, unlikely VT on telemetry this AM. Will set up for EP referral as outpatient GIUL[facility]NA and 14 day shelter monitor through our office. 2-4 week follow up in our office after discharge for SVT and CAD management. EF 55% basal inferior HK on Echo. Extensively discussed my concerns with regards to not only SVT probable AVNRT but wider complex and very rapid probable aberrantly conducted SVT less likely VT. Discussed potential transfer as an inpatient but more likely outpatient referral to electrophysiology for consideration of ablation. In the meantime, will continue with medical therapy / suppression as tolerated. Counseled patient potential risks and benefits with medications versus more definitive ablation therapy and risk for sustained very rapid SVT with regards to near-syncope, syncope. Patient verbalized understanding and agreed with plan of care. all questions answered to His satisfaction. Patient clearly wanted to avoid inpatient transfer to another hospital if possible. Further recommendations after review of medication tolerance and telemetry overnight. (2) Coronary artery disease: Code(s): I25.10 - Atherosclerotic heart disease of [place] coronary artery without angina pectoris Status: Acute Assessment and Plan: Asymptomatic, no angina. Needs ASA 81mg daily (when safe), statin (3) Acute pancreatitis: Code(s): K85.90 - Acute pancreatitis without necrosis or infection, unspecified Status: Acute Assessment and Plan: Per GI and primary service. (4) Hypertension: Code(s): I10 - Essential (primary) hypertension Status: Chronic Assessment and Plan: Elevated. Continue to monitor. (5) Diabetes: Code(s): E11.9 - Type 2 diabetes mellitus without complications Status: Chronic Assessment and Plan: Per primary service. History of Present Illness History of Present Illness Consult date/time: Date of service: 03/23/20 12:52 Cardiology consultation the request of Dr. Jim of the [facility] service for opinion regarding recurrent SVT. Requesting physician: Vadim Jim MD Consult reason: Other ( supraventricular tachycardia) Reason For Visit: pancreatitis Narrative: patient is a very pleasant 59-year-old male with a past medical history significant for hypertension, type 2 diabetes mellitus, , CAD status post remote myocardial infarction status post stent implantation 2009 who was admitted March 19 with complaints of 3 weeks intermittent diarrhea, abdominal pain x2 weeks. Presentation he was noted to have a markedly elevated lipase greater than [address] evidence of acute interstitial pancreatitis. Patient subsequently had a focal hemorrhagic conversion but without clear explanation for pancreatitis clinically and or with the assistance of MRCP. On March 15 60 began to experience episodes of SVT which appeared to be consistent with short RP tachycardia most likely AVNRT ranging from 170 to >200bpm. he was not previously on a beta-neal but has subsequent increase to 100 mg b.i.d.. He has had se
--- NOTE | 2020-03-23 14:55 | WPDGIPROGNO ---
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 now he is feeling ok. Abdominal pain has improved and he tolerated diet, had chicken sandwich, no nausea. Review of Systems Review of Systems: All systems reviewed & are unremarkable except as noted in HPI and below Exam Const: General: comfortable and no acute distress HENMT: General nose exam: Normal nares present Eyes: General: appearance normal, both eyes and all related structures Neck: Neck: no JVD Resp: Auscultation: clear to auscultation bilaterally Cardio: Rate: regular rate Rhythm: regular rhythm GI: Inspection: non-distended GI Palp: Yes Soft to palpation Skin: General skin exam: normal color Neuro: General: gait normal Speech: normal speech Extrem: General: normal to inspection Psych: Mental Status: mental status grossly normal Objective Data Vital Signs Vital Signs: Vital Signs - 24 hr 03/22/20 15:20 03/22/20 16:00 03/22/20 16:36 Temperature Pulse Rate 108 H 104 H Respiratory Rate Blood Pressure 168/91 H Pulse Oximetry 03/22/20 17:14 03/22/20 20:00 03/22/20 20:01 Temperature 97.9 F Pulse Rate 190 H 100 78 Respiratory Rate 18 Blood Pressure 153/84 H Pulse Oximetry 98 03/22/20 21:54 03/23/20 00:00 03/23/20 04:00 Temperature Pulse Rate 96 78 76 Respiratory Rate Blood Pressure Pulse Oximetry 03/23/20 06:19 03/23/20 08:00 03/23/20 08:17 Temperature 97.8 F Pulse Rate 87 83 162 H Respiratory Rate 17 Blood Pressure 157/89 H Pulse Oximetry 98 03/23/20 08:21 03/23/20 09:20 03/23/20 09:25 Temperature Pulse Rate 94 101 H Respiratory Rate Blood Pressure 168/95 H Pulse Oximetry 03/23/20 12:00 Temperature Pulse Rate 91 Respiratory Rate Blood Pressure Pulse Oximetry Intake/Output Intake/Output: Intake & Output 03/20/20 03/21/20 03/22/20 03/23/20 23:59 23:59 23:59 23:59 Intake Total 3350 3350 3715 830 Output Total 2125 1150 Balance 1225 2200 3715 830 Meds/Results Medications: Active Medications Generic Name Dose Route Start Last Admin Trade Name Freq PRN Reason Stop Dose Admin Hydrocodone Bitart/Acetaminophen 1 tab 03/22/20 09:11 03/22/20 22:02 [place] 5-325 Mg PO 1 tab Q4H PRN Administration Pain Rated 4-6 Dextrose 12.5 gm 03/19/20 20:08 Dextrose 50% Syringe IV PUSH PRN PRN Hypoglycemia Protocol Glucagon 1 mg 03/19/20 20:08 Glucagon For Inj IM PRN PRN Hypoglycemia Protocol Glucose 15 gm 03/19/20 20:08 Glutose 15 PO PRN PRN Hypoglycemia Protocol Hydralazine HCl 10 mg 03/19/20 20:30 03/22/20 14:10 Apresoline Hcl Inj IV PUSH 10 mg Q8H PRN Administration Blood Pressure - High Dextrose 1,000 mls @ 100 mls/hr 03/19/20 20:08 Dextrose 5% 1,000 Ml IVPB PRN PRN Hypoglycemia Protocol Insulin Aspart 2
[2020-03-23] MEDS: HYDROcodone/acetaminophen (*CRX) 5-325 MG TABLET 1 TAB PO ×2 (15:51→20:47)
[2020-03-23] MEDS: polyethylene glycoL 3350 17 GM POWD.PACK PO (15:51)
--- NOTE | 2020-03-23 16:51 | PM.IMPN ---
Progress Note: A&P Assessment and Plan (1) Acute pancreatitis: Code(s): K85.90 - Acute pancreatitis without necrosis or infection, unspecified Status: Acute Assessment and Plan: assumed idiopathic. Lipids normal, no gallstones on US. And no history of ETOH. MRCP 03/21 small area of hemorrhage but no ductal stenosis or stones GI suggests repeat MRCP 4-6 weeks. hgb stable (2) Hypertension: Code(s): I10 - Essential (primary) hypertension Status: Chronic Assessment and Plan: p.r.n. hydralazine. and added beta neal 03/21 and increasing, continue tracie and increase also (3) Diabetes: Code(s): E11.9 - Type 2 diabetes mellitus without complications Status: Chronic Assessment and Plan: sliding scale and resumed Levemir on a lesser dose 35 b.i.d. 03/20 ,history of taking 130 units daily BS fair control here (4) Elevated liver enzymes: Code(s): R74.8 - Abnormal levels of other serum enzymes Status: Acute Assessment and Plan: LFTs normal 03/22 and secondary to the pancreatitis but also has fatty infiltration of the liver on his ultrasound. Hepatitis AB and C negative and patient has been on a statin too As above MRCP 03/21 (5) DVT prophylaxis: Code(s): Z29.9 - Encounter for prophylactic measures, unspecified Status: Acute Assessment and Plan: Lovenox stopped with hemorrhage on MRCP (6) SVT (supraventricular tachycardia): Code(s): I47.1 - Supraventricular tachycardia Status: Acute Assessment and Plan: episode of SVT 03/21 with no CP , converted back to SR with IV metoprolol and scheduled po, echo normal EF with some infer wall hypo with hx of stent 2009, thyroid ok recurrant spells, so increased metoprolol to 100 bid and card opinion Subjective Date/time seen: 03/23/20 16:51 Interval history: date of visit 03/23. 59-year-old diabetic admitted with abdominal pain and found to have pancreatitis by lab and CT scan. Feels better this a.m.. some gas, less pain and feels better overall.and tolerated regular diet . still epidsodes of tachycardia though Exam Narrative: Exam Narrative: Blood pressure 150/86 pulse is 86 saturating 96% on room air a febrile pupils equal reactive to light sclera anicteric lungs clear CV regular rate rhythm no murmurs abdomen soft ,non tender, bowel sounds present and increased extremities without edema distal pulses 2+ neuro alert cooperative no focal deficits Objective Data Vital Signs Vital Signs: Vital Signs - 24 hr 03/22/20 17:14 03/22/20 20:00 03/22/20 20:01 Temperature 36.6 C Pulse Rate 190 H 100 78 Respiratory Rate 18 Blood Pressure 153/84 H Pulse Oximetry 98 03/22/20 21:54 03/23/20 00:00 03/23/20 04:00 Temperature Pulse Rate 96 78 76 Respiratory Rate Blood Pressure Pulse Oximetry 03/23/20 06:19 03/23/20 08:00 03/23/20 08:17 Temperature 36.6 C Pulse Rate 87 83 162 H Respiratory Rate 17 Blood Pressure 157/89 H Pulse Oximetry 98 03/23/20 08:21 03/23/20 09:20 03/23/20 09:25 Temperature Pulse Rate 94 101 H Respiratory Rate Blood Pressure 168/95 H Pulse Oximetry 03/23/20 12:00 03/23/20 15:18 03/23/20 16:00 Temperature 36.2 C L Pulse Rate 91 87 90 Respiratory Rate 18 Blood Pressure 150/88 H Pulse Oximetry 100 03/23/20 16:36 03/23/20 16:44 Temperature Pulse Rate 196 H Respiratory Rate Blood Pressure 129/96 H Pulse Oximetry Intake/Output Intake/Output: Intake & Output 03/20/20 03/21/20 03/22/20 03/23/20 23:59 23:59 23:59 23:59 Intake Total 3350 3350 3715 870 Output Total 2125 1150 Balance 1225 2200 3715 870 Meds/Results Medications: Active Medications Generic Name Dose Route Start Last Admin Trade Name Freq PRN Reason Stop Dose Admin Hydrocodone Bitart/Acetaminophen 1 tab 03/22/20 09:11 03/23/20 15:51 [place] 5-325 Mg PO 1 tab Q4H PRN
[2020-03-23 17:07] LABS: Glucose Point of Care 156 (65-105)
[2020-03-23] MEDS: METOPROLOL TARTRATE 50 MG TAB 150 MG PO (20:46)
[2020-03-23 20:58] LABS: Glucose Point of Care 228 (65-105)
[2020-03-24] VITALS: PULSE 74
[2020-03-24] MEDS: HYDROcodone/acetaminophen (*CRX) 5-325 MG TABLET 1 TAB PO ×3 (01:10→12:19)
[2020-03-24 04:00] VITALS: PULSE 75
[2020-03-24 05:07] VITALS: BP 146/86; PULSE 80; RESP 16; TEMP 36.5; O2SAT 96
[2020-03-24 06:38] LABS: Basophils Percent Auto 0.2 % (0.2-1.2); Eosinophils Absolute Auto 0.1 K/mm3 (0-0.3); Eosinophils Percent Auto 0.7 % (0-4.4); Hematocrit 41.9 % (42.0-52.0); Hemoglobin 14.5 g/dL (14.0-18.0); Immature Granulocyte Absolute 0.08 K/mm3 (0.00-0.031); Immature Granulocyte Percent A 0.6 % (0-0.5); Lymphocytes Absolute Auto 1.68 K/mm3 (0.9-3.2); Lymphocytes Percent Auto 12.7 % (18.3-44.2); Mean Corpuscular HGB Conc 34.6 g/dl (32-36); Mean Corpuscular Hemoglobin 30.5 pg (26-34); Mean Corpuscular Volume 88.2 fl (80-100); Mean Platelet Volume 9.8 fl (7.4-10.4); Monocytes Absolute Auto 1.3 K/mm3 (0.1-0.6); Monocytes Percent Auto 9.5 % (2.6-8.5); Neutrophils Absolute Auto 10.1 K/mm3 (1.3-6.7); Neutrophils Percent Auto 76.3 % (45.5-73.1); Platelet Count Result 303 k/mm3 (150-375); Red Blood Count 4.75 M/mm3 (4.6-6.20); Red Cell Distribution Width 12.6 % (11.5-14.5); White Blood Count 13.2 K/mm3 (4.5-10.0)
[2020-03-24 06:51] LABS: Alanine Aminotransferase 34 U/L (4-50); Albumin Level 3.1 g/dL (3.5-5.1); Alkaline Phosphatase 108 U/L (38-126); Anion Gap 8 mmol/L (8-16); Aspartate Amino Transferase 29 U/L (17-59); Bilirubin,Total 0.8 mg/dL (0.2-1.3); Blood Urea Nitrogen 11 mg/dL (9-20); Calcium 8.4 mg/dL (8.4-10.2); Carbon Dioxide 29 mmol/L (22-30); Chloride 95 mmol/L (98-107); Estimated CRCL calculation 103 ml/min; Estimated Glomerular Filt Rate > 60; Glucose 72 mg/dL (75-110); Magnesium 2.1 mg/dL (1.6-2.3); Potassium 3.3 mmol/L (3.4-5.0); Sodium 132 mmol/L (137-145)
[2020-03-24 08:00] VITALS: PULSE 79
[2020-03-24 08:06] LABS: Glucose Point of Care 76 (65-105)
[2020-03-24] MEDS: POTASSIUM CHLORIDE 20 MEQ TABLET 40 MEQ PO (09:04)
[2020-03-24 09:05] VITALS: PULSE 94
[2020-03-24] MEDS: METOPROLOL TARTRATE 50 MG TAB 150 MG PO (09:05)
[2020-03-24] MEDS: lisinopriL 5 MG TABLET PO (09:05)
[2020-03-24] MEDS: polyethylene glycoL 3350 17 GM POWD.PACK PO (09:11)
[2020-03-24] MEDS: INSULIN DETEMIR 100 UNITS/ML 10 UNITS SUB-Q (09:59)
[2020-03-24 11:41] LABS: Glucose Point of Care 179 (65-105)
[2020-03-24 12:00] VITALS: PULSE 77
--- NOTE | 2020-03-24 13:26 | PM.PNCARD ---
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 One time, brief, symptomatic probable aberrantly conducted SVT at around 260-280bpm clearly different than his previously documented SVT. Given h/o CAD/PR Class IC antiarrythmics contraindicated and will be avoided. Amiodarone best option if antiarrhythmic therapy required. Cont Metoprolol tartrate, increase to 150mg BID. Doing well no issues. Stable for discharge. Has appointment with electrophysiology this at 1:00 p.m.. Monitor potassium as an outpatient. 10 mEq daily supplement as he has required 40 mEq for the past 2 days but for unclear reasons. Check BMP in 1 week. (2) Coronary artery disease: Code(s): I25.10 - Atherosclerotic heart disease of [place] coronary artery without angina pectoris Status: Acute Assessment and Plan: Asymptomatic, no angina. Needs ASA 81mg daily (when safe), statin Follow up as an outpatient in 2 months. (3) Acute pancreatitis: Code(s): K85.90 - Acute pancreatitis without necrosis or infection, unspecified Status: Acute Assessment and Plan: Per GI and primary service. (4) Hypertension: Code(s): I10 - Essential (primary) hypertension Status: Chronic Assessment and Plan: Elevated. Continue to monitor. (5) Diabetes: Code(s): E11.9 - Type 2 diabetes mellitus without complications Status: Chronic Assessment and Plan: Per primary service. Subjective Date/time seen: date of service: 03/24/20 13:26 Follow-up for symptomatic SVT Feels well. No complaints whatsoever. No SVT overnight. Last episode yesterday afternoon around 4:30 p.m.. No palpitations, chest pain shortness of breath. Eating well, no abdominal pain nausea vomiting. Patient states he is ready to be discharged home. Review of Systems Review of Systems: All systems reviewed & are unremarkable except as noted in HPI and below Constitutional: Constitutional: Reports as per HPI, Reports no additional constitutional complaints and Reports fatigue Eyes: Eyes: Reports as per HPI and Reports no additional eye complaints ENT: Reports system reviewed and no additional complaints, except as documented and Reports as per HPI Cardiovascular: Cardiovascular: Reports as per HPI, Reports no additional cardiovascular complaints, Denies chest pain, Denies diaphoresis, Denies leg edema, Denies lightheadedness, Reports palpitations, Denies dyspnea and Denies dyspnea on exertion Respiratory: Respiratory: Reports as per HPI, Reports no additional respiratory complaints, Denies dyspnea and Denies dyspnea on exertion Gastrointestinal: Gastrointestinal: Reports as per HPI, Reports no additional gastrointestinal complaints and Reports abdominal pain Genitourinary: Genitourinary: Reports no additional male genitourinary complaints and Reports as per HPI Musculoskeletal: Musculoskeletal: Reports no additional musculoskeletal complaints and Reports as per HPI Integumentary/Breasts: Skin/Breast: Reports system reviewed and no additional complaints, except as docu and Reports as per HPI Neurologic: Reports system reviewed and no additional complaints, except as documented, Reports as per HPI and Denies confusion Psychiatric: Psychiatric: Reports no additional psychiatric complaints, Reports as per HPI, Denies anxiety and Denies confusion Endocrine: Endocrine: Reports no additional endocrine complaints, Reports as per HPI, Reports fatigue and Reports palpitations Hematologic/Lymphatic: Hematologic/Lymphatic: Reports no additional hematologic/lymphatic complaints and Reports as per HPI Allergic/Immunologic: Allergic/Immunologic: Reports no additional allergic/immunologic complaints and Reports as per HPI Exam Narra
--- NOTE | 2020-03-24 15:54 | PM.DS ---
DS: Admitting Diagnosis Admitting Diagnosis Admitting Diagnosis: pancreatitis DS: Discharge Diagnosis Discharge Diagnosis (1) Acute pancreatitis: Code(s): K85.90 - Acute pancreatitis without necrosis or infection, unspecified Status: Acute Assessment and Plan: Patient presents with abdominal pain and diarrhea and found to have Lipase of 5000. CT scan showing acute interstitial pancreatitis. Assumed idiopathic. Lipids normal, no gallstones on US. And no history of ETOH. MRCP 03/21 showing a small area of hemorrhage but no ductal stenosis or stones. GI suggests repeat MRCP 4-6 weeks. Lipase improved with bowel rest. His diet was advanced. Hgb remained stable. (2) Hypertension: Code(s): I10 - Essential (primary) hypertension Status: Chronic Assessment and Plan: Lisinopril was increased and beta neal added. Hydralazine available as needed. (3) Diabetes: Code(s): E11.9 - Type 2 diabetes mellitus without complications Status: Chronic Assessment and Plan: Patient takes large doses of Levemir daily and checks glucose infrequently. Levemir resumed here on a lesser dose 25U b.i.d. and glucose reasonably well controlled. Educated about benefits of complinace with glucose monitoring. Plan for special education paraeducator as outpatient (4) Elevated liver enzymes: Code(s): R74.8 - Abnormal levels of other serum enzymes Status: Acute Assessment and Plan: LFTs slightly elevated on admission but normalized quickly. [place] secondary to the pancreatitis but also has fatty infiltration of the liver on his ultrasound. Hepatitis AB and C negative and patient has been on a statin too. As above MRCP 03/21. (5) DVT prophylaxis: Code(s): Z29.9 - Encounter for prophylactic measures, unspecified Status: Acute Assessment and Plan: Lovenox stopped with hemorrhage on MRCP (6) SVT (supraventricular tachycardia): Code(s): I47.1 - Supraventricular tachycardia Status: Acute Assessment and Plan: Patient had an episode of SVT 03/21 with no CP. He converted back to SR with IV metoprolol and scheduled po metoprolol. Cardiology involved in his care. Echo showing normal EF with some infer wall hypo with hx of stent 2009. TSH normal. He did have recurrent spells so increased metoprolol increased. Potassium replaced so plan for home with oral potassium for a few more days. Discussed with Cardiology. DS: Summary Hospital Course Reason for hospitalization: 59yo male here for pancreatitis. Please see H&P for details. Hospital Course: As above Time Spent with Patient Time attestation: Total time spent providing and/or coordinating discharge services:38 minutes Time spent: Greater than 30 minutes Specific discharge activities: discussed with cardiology; patient education Exam Narrative: Exam Narrative: AF 97.7 146/86 77 16 96% ra Gen - NARD Chest - CTA bilaterally, nml RR CV - RRR S1/S2 Abd - Soft, NT/ND, Positive BS Ext - No pedal edema Neuro - Alert and oriented. Nonfocal exam. Psych - Nml mood and affect Skin - Warm and dry DS: Data Data Completed and Pending Labs on day of discharge: Labs from last 24 hours 03/24/20 03/24/20 03/24/20 11:39 07:58 05:35 WBC 13.2 H RBC 4.75 Hgb 14.5 Hct 41.9 L MCV 88.2 MCH 30.5 MCHC 34.6 RDW 12.6 Plt Count 303 MPV 9.8 Immature Gran % (Auto) 0.6 H Neut % (Auto) 76.3 H Lymph % (Auto) 12.7 L [place] % (Auto) 9.5 H Eos % (Auto) 0.7 Baso % (Auto) 0.2 Lymph # (Auto) 1.68 [place] # (Auto) 1.3 H Eos # (Auto) 0.1 Baso # (Auto) 0.0 Abs Immat Gran (auto) 0.08 H Absolute Neuts (auto) 10.1 H Absolute Nucleated RBC 0.0 Nucleated RBC % 0.0 Sodium Potassium Chloride Carbon Dioxide Anion Gap BUN Creatinine Estim Creat Clear Calc Estimated GFR Glucose POC Capillary Gl
--- NOTE | 2020-03-26 11:03 | PC.NURSE ---
Called potassium cl 10 meq daily po for 5 days. Mailed a slip fpr BMP in one week to patient's home. Out patient referral for special educator started and [facility]. Called patient with this information and left a message.
--- NOTE | 2020-03-30 06:49 | PC.NURSE ---
Out patient referral started for patient for Inital DSMT. Faxed to [facility]. Patient has no PCP.
== END 2020-03-24 16:27 | disposition home or self-care (01) | DRG 439 ==
LOC: ANHED 14:04 → ANH3MED 16:19
PROVIDERS: Internal Medicine; Internal Medicine Gastroenterology; Nurse Practitioner; Admitting Provider Family Medicine; Emergency Provider Emergency Medicine; Visit Provider Internal Medicine
DX: K85.80 Other acute pancreatitis without necrosis or infection (principal); I47.1 Supraventricular tachycardia; F41.9 Anxiety disorder, unspecified; I10 Essential (primary) hypertension; I25.10 Atherosclerotic heart disease of native coronary artery without angina pectoris; E78.5 Hyperlipidemia, unspecified; R74.8 Abnormal levels of other serum enzymes; E11.65 Type 2 diabetes mellitus with hyperglycemia; I25.2 Old myocardial infarction; Z95.5 Presence of coronary angioplasty implant and graft
CPT/HCPCS: 36415; 71046; 74177; 74183; 76376; 76705; 80048; 80053; 80061; 80074; 80076; 83036; 83690; 83735; 84100; 84439; 84443; 84484; 85025; 85610; 85730; 93005; 93306; 96374; 96376; 99285; A9270; A9577; G0378; J0131; J0360; J1650; J1815; J2270; J3475; J7030; J7050; Q9967

== ENCOUNTER 2023-05-30 12:33 | Emergency (ER) | payer OTHER, SELFPAY ==
[2023-05-30] VITALS (13 sets, daily range): BP systolic 139–166; BP diastolic 83–87; PULSE 76–95; RESP 16–18; TEMP 36.7; O2SAT 97–100
--- NOTE | ~2023-05-30 | US_ITS ---
EXAMINATION: US venous doppler LE RT DATE: 05/30/2023 15:08 INDICATION: Y . TECHNIQUE: Grayscale images without and with compression and Doppler images of the right lower extrem ity veins were obtained. COMPARISON: None FINDINGS: The right common femoral vein, profunda (deep) femoral vein, femoral vein, popliteal vein, peroneal v ein, posterior tibial veins, gastrocnemius vein, and greater saphenous vein are patent. IMPRESSION: Patent right lower extremity veins. No evidence of deep venous thrombosis. Reviewed, dictated and finalized at location K. R ERECTOR
--- NOTE | 2023-05-30 14:53 | ED.EXTPRO ---
HPI - Extremity Problem General Chief complaint: Extremity Problem,Nontraumatic Stated complaint: right leg swelling Time Seen by Provider: 05/30/23 14:25 History of Present Illness HPI Narrative: 62-year-old male presenting to the emergency department for evaluation of swelling of his right lower extremity. Patient reports on March 26 he stepped on some coral when he was in [place]. patient has been following up with Wound Care and has been on antibiotics and reports that the wound on the bottom of his right leg is healing. Patient reports over the last 2 weeks he has had increased swelling of the right lower extremity and patient has been on antibiotics by his primary care physician. Related Data Home Medications Medication Instructions Recorded Confirmed aspirin 325 mg tablet 325 mg PO DAILY 03/19/20 03/19/20 rosuvastatin 20 mg tablet 20 mg PO DAILY 03/19/20 03/19/20 Allergies Allergy/AdvReac Type Severity Reaction Status Date / Time No Known Allergies Allergy Verified 03/19/20 13:13 Review of Systems Review of Systems: All systems reviewed & are unremarkable except as noted in HPI and below PMFSH Past Medical History Medical History (Updated 05/31/23 @ 00:00 by Sandra Hollingsworth) Coronary artery disease Diabetes Diabetes mellitus type 2 with complications, uncontrolled Elevated liver enzymes Hyperlipidemia Hypertension Pancreatic abnormality Upper abdominal pain Surgical History Surgical History History of appendectomy Family History Family History Mother Breast cancer Lung cancer Father Lung cancer Social History Social History Social History: 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 He has 2 children who are healthy. 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 He desires to be a full code. He is a lifelong nonsmoker. He does not use any alcohol marijuana or illicit drugs. Drinks per week: 0 Substance use: never Gender identity (if verbalized by the patient): Male Spiritual care concerns: No Exam Narrative: APPEARANCE: Well appearing, no pain, no distress, well-nourished. HEAD: normocephalic, atraumatic. EYES: PERRLA/EOMI, conjunctivae clear. NOSE: Normal no drainage EARS:TMS clear with good light reflex. THROAT: Pharynx clear, no exudate. NECK: Supple. No adenopathy, no masses. RESPIRATORY: Airway patent, respirations nonlabored. Clear to auscultation bilaterally, no rales, rhonchi, wheezing. CARDIOVASCULAR: Regular rate and rhythm without murmurs rubs or gallops. ABDOMINAL: Soft, nontender, nondistended, normal bowel sounds MUSCULOSKELETAL: Right lower extremity edema from the knee down. DP pulses intact on the right lower extremity. NEURO: Alert. Cranial nerves II through XII intact. Good gait. Good coordination SKIN: Some erythema throughout the lower extremity and healing wound to the bottom of the right foot Course Course Emergency Course: 62-year-old male presents emergency department for evaluation of worsening right lower extremity swelling. Patient is afebrile but does have a leukocytosis of 10.1. Patient has been on Levaquin daily but has worsening symptoms. Patient has a normal CMP ultrasound was negative for DVT. Patient was switched to Rocephin and Flagyl for outpatient. Admission versus discharge home was discussed with the patient and he prefers to be discharged to home. Vital Signs Vital signs: Vital Signs Temperature 98.1 F 05/30/23 12:40 Pulse Rate 95 05/30/23 12:40 Respiratory Rate 16 05/30/23 12:40 Blood Pressure 166/83 H 05/30/23 12:40 Pulse Oximetry 100 05/30/23 12:40 Temperature 98.1 F 05/30/23 12:40 Pulse Rate 84 05/30/23 17:16 Respiratory Rate 18 05/30/23 17:16 Blood Pressure 150/87 H 05/30/23 17:16
[2023-05-30 15:11] LABS: Basophils Absolute Auto 0.1 K/mm3 (0.0-0.1); Basophils Percent Auto 0.6 % (0.2-1.2); Eosinophils Absolute Auto 0.1 K/mm3 (0-0.3); Eosinophils Percent Auto 0.7 % (0-4.4); Hematocrit 44.6 % (42.0-52.0); Hemoglobin 14.2 g/dL (14.0-18.0); Immature Granulocyte Absolute 0.17 K/mm3 (0.00-0.031); Immature Granulocyte Percent A 1.7 % (0-0.5); Lymphocytes Percent Auto 24.9 % (18.3-44.2); Mean Corpuscular HGB Conc 31.8 g/dl (32-36); Mean Corpuscular Hemoglobin 28.9 pg (26-34); Mean Corpuscular Volume 90.8 fl (80-100); Mean Platelet Volume 8.7 fl (7.4-10.4); Monocytes Absolute Auto 0.8 K/mm3 (0.1-0.6); Neutrophils Absolute Auto 6.5 K/mm3 (1.3-6.7); Neutrophils Percent Auto 64.1 % (45.5-73.1); Platelet Count Result 522 k/mm3 (150-375); Red Blood Count 4.91 M/mm3 (4.6-6.20); Red Cell Distribution Width 14.4 % (11.5-14.5); White Blood Count 10.1 K/mm3 (4.5-10.0)
[2023-05-30 15:22] LABS: Alanine Aminotransferase 50 U/L (6-50); Albumin Level 3.6 g/dL (3.5-5.1); Alkaline Phosphatase 160 U/L (38-126); Anion Gap 11 mmol/L (8-16); Aspartate Amino Transferase 29 U/L (17-59); Bilirubin,Total 0.5 mg/dL (0.2-1.3); Blood Urea Nitrogen 15 mg/dL (9-20); Calcium 8.9 mg/dL (8.4-10.2); Carbon Dioxide 27 mmol/L (22-30); Chloride 100 mmol/L (98-107); Estimated CRCL calculation 74 ml/min; Estimated Glomerular Filt Rate > 60; Glucose 108 mg/dL (65-110); Potassium 3.7 mmol/L (3.4-5.0); Sodium 138 mmol/L (137-145)
[2023-05-30] MEDS: metroNIDAZOLE 500 MG/ISO 100ML 500 MG/100 ML BAG 100 MG IVPB (16:44)
== END 2023-05-30 17:45 | disposition home or self-care (01) ==
PROVIDERS: Emergency Provider Emergency Medicine
DX: M79.89 Other specified soft tissue disorders (principal); I25.10 Atherosclerotic heart disease of native coronary artery without angina pectoris; E11.9 Type 2 diabetes mellitus without complications; I10 Essential (primary) hypertension; E78.5 Hyperlipidemia, unspecified
CPT/HCPCS: 36415; 80053; 85025; 93971; 96365; 96367; 99284; J0696; J1836

== ENCOUNTER 2025-06-23 18:58 | Inpatient (IN) | payer OTHER, SELFPAY ==
--- OUTSIDE RECORDS SUMMARY | 2024-02-02 02:40 | XMS_ITS ---
Author Organization [facility] Address [address] [place] [id number] Care Team Providers Care Service Dispatcher Name Role Phone Cathy Mcwilliams Primary Care Provider PrelutskmagdaKeenan Unavailable [phone] REASON FOR VISIT annual Social History Sex Assigned At : Social History Observation Description Sex Assigned At Male Encounters Encounter Location Date Provider Diagnosis [address] [address] 02/02/2024 Cathy Mcwilliams Plan Of Treatment No Information Progress Notes * Richie VALDES RDOB:1960 (64 yo M)Acc No.[id number]:02/02/2024 Annual Physical Patient: Richie GROVE Provider: RADHA Osorio :1960 A ge:63 Y S ex:Male Date:02/02/2024 [address] [facility] Subjective: * Chief Complaints: * 1 . Annual. * Medical History: * Implants: Objective: * Vitals: Assessment: Plan: * Treatment: * Billing Information: * Visit Code: * Procedure Codes: Care Plan Details* * Electronic signature of RADHA Fischer-JOSE on 06/23/2025 at 07:00 PM DISABILITY COORDINATOR Sign off status: Pending * Provider: RADHA Osorio Date: 0 02/02/2024 Generated for Johnathani ng/Faseth/eTransmitting on: 07:00 PM DISABILITY COORDINATOR
[2025-06-23] VITALS (8 sets, daily range): BP systolic 157–195; BP diastolic 99–125; PULSE 77–99; RESP 20–22; TEMP 36.8; O2SAT 94–100; BMI 28.0
--- NOTE | ~2025-06-23 | XR_ITS ---
XR chest 1V portable INDICATION:chest pain . REFERENCE: None FINDINGS: A single AP of the chest demonstrates normal heart size. The lungs are clear. There is no evidence of pneumothorax or pleural effusion. IMPRESSION: No acute pulmonary findings. Reviewed, dictated and finalized at location [facility]
--- NOTE | 2025-06-23 19:00 | ECG_ITS ---
Test Date: 2025-06-23 19:05:12 Measurements Intervals [place] Rate: 85 P: 31 WA: 186 QRS: 12 QRSD: 120 T: 76 QT: 397 QTc: 472 Interpretive Statements SINUS RHYTHM POSSIBLE LEFT ATRIAL ENLARGEMENT INTRAVENTRICULAR CONDUCTION DELAY INFERIOR INFARCT, AGE INDETERMINATE ANTERIOR ST ELEVATION MYOCARDIAL INFARCT- ACUTE BASELINE ARTIFACT- I, II, III ABNORMAL ECG No previous ECG available for comparison Electronically Signed On 06-23-2025 21:07:00 DIRECTOR ERP by Son Lopez D.O.
--- OUTSIDE RECORDS SUMMARY | 2025-06-23 19:00 | XMS_ITS | Clinical Summary ---
Author Organization [facility] Address [address] [place] [address] Care Team Providers Care Desk Reporter Name Role Phone Cathy Mcwilliams Brigid WELFARE ELIGIBILITY INTERVIEWER Primary Care Provider [phone] Allergies No known active allergies Medications Levemir FlexTouch U-100 Insuln 100 unit/mL (3 mL) insulin pen INJECT 130 UNITS SUBCUTANEOUSLY QAM AND 80 UNITS QPM 0 Active lisinopriL (PRINIVIL,ZEST RIL) 2.5 mg tablet TK 1 T PO QD 0 Active rosuvastatin (CRESTOR) 20 mg tablet TK 1 T PO QD 0 Active metoprolol XL (TOPROL-XL) 50 mg extended release tablet Take 150 mg by mouth daily Active Jardiance 10 mg tablet Take 10 mg by mouth daily 1 Active metFORMIN XR (GLUCOPHAGE XR) 500 mg 24 hr tablet Take by mouth daily with dinner 1 Active aspirin (Adult Low Dose Aspirin) 81 mg enteric coated tablet Take 1 tablet (81 mg total) by mouth daily 2 Active Active Problems Problem Noted Date Diagnosed Date Vasovagal syncope 07/12/2021 Palpitations 04/23/2021 Wide-complex tachycardia 04/23/2021 Mixed diabetic hyperlipidemi a associated with type 2 diabetes mellitus 04/23/2021 Hypertension associated with diabetes 04/23/2021 Paroxysmal SVT (supraventricular tachycardia) Assessment & Plan (04/01/2020 3:15 PM CDT): Paroxysmal narrow complex short RP tachycardia. Differential diagnosis includes AVNRT, AVRT (with concealed retrograde accessory pathway conduction), and atrial tachycardia/flutter. The patient also had a wide complex tachycardia that was highly symptomatic and short-lived. We discussed options for management, and I recommended that the patient undergo EP study and catheter ablation of his tachycardia mechanism. We discussed the risks and benefits, and he would like to proceed. At the time of the study, we will also plan on stimulating the patient for ventricular arrhythmia, though I believe that is somewhat unlikely that his wide complex tachycardia represented VT given his normal cardiac substrate. My office will make the appropriate arrangements. Type 2 diabetes mellitus with hyperglycemia 06/27 Coronary artery disease invo lving [place] coronary artery of [place] heart without angina pectoris 12/05/2014 Immunizations Immunization Administration Dates Next Due Influenza, Quadrivalent, Joan l Culture-based MDCK, Antibiotic Free, Intramuscular 05/30/2018 Surgical History Surgery Date Site/Laterality Comments APPENDECTOMY Medical History Medical History Date Comments Arrhythmia Hyperlipidemia Hypertension Cancer (HCC) Coronary artery disease Diabetes mellitus Family History Medical History Relation Name Comments Heart disease Father Lung cancer Father Breast cancer Mother Relation Name Status Comments Father Mother Social History Tobacco Use Types Packs/Day Years Used Date Smoking Tobacco: Never Smokeless Tobacco: Never Personal Safety Answer Date Recorded Getting School Help Needed Not on file 08/22 Sex and Gender Information Value Date Recorded Sex Assigned at Not on file Legal Sex Male 11:01 AM MARKETING OPERATIONS MANAGER Gender Identity Male 04/22/2021 7:19 PM CDT Sexual Orientation Straight 04/22/2021 7: 19 PM CDT Last Filed Vital Signs Vital Sign Reading Time Taken Comments Blood Pressure 124/70 07/12/2021 1:15 PM MARKETING OPERATIONS MANAGER Pulse 58 07/12/2021 1:15 PM MARKETING OPERATIONS MANAGER Temperature 36.5 C (97.7 F) 06/08/2021 10:09 AM MARKETING OPERATIONS MANAGER Respiratory Rate 14 06/08/2021 1:00 PM MARKETING OPERATIONS MANAGER Oxygen Saturation 98% 07/12/2021 1:15 PM MARKETING OPERATIONS MANAGER Inhaled Oxygen Concentration - - Weight 101.8 kg (224 lb 8 oz) 07/12/2021 1:14 PM MARKETING OPERATIONS MANAGER Height 190.5 cm (6' 3) 07/12/2021 1:14 PM MARKETING OPERATIONS MANAGER Body Mass Index 28.06 07/12/2021 1:14 PM MARKETING OPERATIONS MANAGER Plan of Treatment Health Maintenance Due Date Last Done Comments Albumin Creatinine Ratio, Urine 1960 Colon Cancer Screening-Colonoscopy 1960 Depression Screening 1960 Hemoglobin A1C 1960 Hepatitis C Screening 1960 Prostate Cancer Screening-PSA 1960 Dilated Eye Exam 1960 Foot Exam 1960 DTaP/Tdap/Td Vaccine (1 - Tdap) 12/30/1971 Hepatitis B Screening 1978 Regular Well Visit/Exam 18-64 1978 Pneumococcal vaccine <65 (1 of 2 - PCV) 12/30/1979 Zoster Vaccine (1 of 2) 2010 Lipid Panel 04/23/2022 04/23/2021, 04/0 09/2015, 06/30/2015 eGFR 06/08/2022 06/08/2021 Covid-19 Vaccine ( season) 02/24/202502/2021, 07/29/2020 Influenza Vaccine (#1) 2025 05/30/2018 Procedures Procedure Name Priority Date/Time Associated Diagnosis Comments EGFR STAT 06/08/2021 10:16 AM MARKETING OPERATIONS MANAGER POCT LIPID PANEL Routine 04/23/2021 12:4 2 PM CDT Hyperlipidemia associated with type 2 diabetes mellitus (HCC) from Last 3 Months or Most Recently Relevant to Health Maintenance Results * (ABNORMAL) eGFR (06/08/2021 10:16 AM MARKETING OPERATIONS MANAGER) eGFR 61(L) 90 - 130 mL/min/1. 73 m2 [facility] Comment: Interpretive Data Reference Interval Normal >/= 90 mL/min/1.73m2 Mildly decreased* 60 - 89 mL/min/1.73m2 Mildly to moderately decreased 45 - 59 mL/min/1.73m2 Moderately to severely decreased 30 - 44 mL/min/1.73m2 Severely decreased 15 - 29 mL/min/1.73m2 Kidney Failure < 15 mL/min/1.73m2 *Relative to young adult level Estimated glomerular filtration rate is determined by the 2020 CKD-EPI equation recommended by the National Kidney Foundation (A Unifying Approach to GFR Estimation: Recommendations of the NKF-ASK Task Force on Reassessing the Inclusion of Race in Diagnosing Kidney Disease, JASN 2020). The CKD-EPI equation should not be used for patients with unstable renal function and has not been validated in children and those over 70. Current interpretive data was last reviewed 2021. Blood 06/08/2021 10:1 6 AM MARKETING OPERATIONS MANAGER 06/08/2021 10:44 AM MARKETING OPERATIONS MANAGER us Jessa Cunningham MD LAB BLOOD ORDERABLES Final Result [facility] Department [place] [address] * POCT lipid panel (04/23/2021 12:42 PM CDT) Cholesterol, POC 143 mg/dL Comment:GLU = 302 HDL, POC 25 mg/dL Triglycerides, POC 199 mg/dL LDL Cholesterol POC 78 mg/dL Chol/HDL Ratio, POC 5.7 Non-HDL Cholesterol, POC 118 mg/dL Cholesterol Total, POC 143 mg/dL Capillary blood 04/23/2021 1 2:42 PM CDT Selvin Ding MD POINT OF CARE TEST ORDER KERI Final Result from Last 3 Months or Most Recently Relevant to Health Maintenance Insurance [employer] OPEN ACCESS - [employer] H[employer]PPO Address: [address] [place] [address] CIGNA OPEN ACCESS CIGNA OPEN ACCESS Care Teams Desk Reporter Relationship Specialty Start Date End Date Cathy Mcwilliams NP [address] [place] [address] PCP - General Nurse Practitioner 01/02/24
--- OUTSIDE RECORDS SUMMARY | 2025-06-23 19:01 | XMS_ITS | Clinical Summary ---
Author Organization [facility] Address [address] [place] [address] Care Team Providers Care Meringuer Name Role Phone Unavailable Primary Care Provider Unavailabl e Source Comments [facility],non-owned Affiliates and Associated Physician Practices is amultiple site organization consisting of ambulatory clinics and hospital sitesin [place], [place], [place] and [place]. This disclosure is being madepursuant to the Care Everywhere program and may not contain all information available regarding this patient. Last updated 18.[facility] Social History Tobacco Use Types Packs/Day Years Used Date Smoking Tobacco: Never Assessed Sex and Gender Information Value Date Recorded Sex Assigned at Not on file Legal Sex Male 11:42 AM CDT Gender Identity Not on file Sexual Orientation Not on file Plan of Treatment Health Maintenance Due Date Last Done Comments COLOGUARD (AGES 45-75) - COL ON CA SCREENING 1960 COLON MONITORING 1960 COLONOSCOPY - COLON CA SCREENING 1960 CT COLONOGRAPHY - COLON CA SCREENING 1960 Colorectal Cancer Screening 1960 FIT - COLON CA SCREENING 1960 FLEX SIG - COLON CA SCREENING 1960 LIPID TESTING 1960 HIV SCREENING 12/30/1975 HEPATITIS C SCREENING 12/25/1978 DTAP/TDAP/TD VACCINES (1 - Tdap) 12/30/1979 PNEUMOCOCCAL VACCINE 50+ (1 of 1 - PCV) 2010 ZOSTER VACCINE (1 of 2) 2010 DEPRESSION SCREENING 06/26/2024 COVID-19 VACCINE ( - 2024-2 6 season) 2025 INFLUENZA VACCINE (#1) 2025 Respiratory Syncytial Virus (RSV) Vaccine Pt: or over 60 yrs (1 - 1-dose 75+ series) 12/30/2035 HEPATITIS B VACCINE Aged Out No longe r eligible based on patient's age to complete this topic HIB VACCINE Aged Out No longer eligi ble based on patient's age to complete this topic HPV VACCINE Aged Out No longer eligi ble based on patient's age to complete this topic MENINGOCOCCAL (Group B) VACC INE SHARED DECISION-MAKING Aged Out No longer eligibl e based on patient's age to complete this topic MENINGOCOCCAL GROUPS A/C/Y/W VACCINE Aged Out No longer eligible b ased on patient's age to complete this topic
--- OUTSIDE RECORDS SUMMARY | 2025-06-23 19:01 | XMS_ITS | Patient Health Record ---
[facility] Organization [facility] Address [address] [place] [address] Care Team Providers Care Simplex Printer Installer Name Role Phone Cathy Mcwilliams Primary Care Provider PrelutskKeenan man Unavailable [phone] Dr. Rekha Leon Unavailable [phone] Allergies No Known Allergies Results Component Value Reference Range Notes Hemoglobin A1C Reviewed date:05/21/2025 03:29:38 PM Interpretation: Performing Lab: Notes/Report: HbA1c 7.3 Hemoglobin A1C Reviewed date:03/18/2025 03:57:57 PM Interpretation: Performing Lab: Notes/Report: HbA1c 6.7 Hemoglobin A1C Reviewed date:02/14/2025 12:17:20 PM Interpretation: Performing Lab: Notes/Report: HbA1c 8.5 TSH Rfx on Abnormal to Free T4 Reviewed date:02/15/2025 01:23:49 PM Interpretation: Performing Lab:[facility], [address] [facility], Phone - [phone], [facility] Notes/Report: TSH 0.955 0.450-4.500 uIU/mL Basic Metabolic Panel (8) Reviewed date:02/15/2025 01:23:49 PM Interpretation: Performing Lab:[facility], [address] [facility], Phone - [phone], [facility] Notes/Report: Glucose 212 70-99 mg/dL BUN 6 8-27 mg/dL Creatinine 1.08 0.76-1.27 mg/dL eGFR 77 >59 mL/min/1.73 BUN/Creatinine Ratio 6 10-24 Sodium 136 134-144 mmol/L Potassium 4.0 3.5-5.2 mmol/L Chloride 99 96-106 mmol/L Carbon Dioxide, Total 23 20-29 mmol/L Calcium 8.7 8.6-10.2 mg/dL Hepatic Function Panel (7) Reviewed date:02/15/2025 01:23:49 PM Interpretation: Performing Lab:[facility] [place], [address] [place] [address], Phone - [phone], Director - [facility] Notes/Report: Protein, Total 6.5 6.0-8.5 g/dL Albumin 3.6 3.9-4.9 g/dL Bilirubin, Total 0.3 0.0-1.2 mg/dL Bilirubin, Direct 0.12 0.00-0.40 mg/dL Alkaline Phosphatase 225 44-121 IU/L AST (SGOT) 23 0-40 IU/L ALT (SGPT) 23 0-44 IU/L Lipid Panel Reviewed date:02/15/2025 01:23:49 PM Interpretation: Performing Lab:[facility] [place], [address] [place] [address], Phone - [phone], Director - [facility] Notes/Report: Cholesterol, Total 192 100-199 mg/dL Triglycerides 175 0-149 mg/dL HDL Cholesterol 26 >39 mg/dL VLDL Cholesterol Eduard 32 5-40 mg/dL LDL Chol Calc ([facility]) 134 0-99 mg/dL LDL Calc Comment: ARCADE TECHNICIAN Vitamin D, 25-Hydroxy Reviewed date:02/15/2025 01:23:49 PM Interpretation: Performing Lab[facility] [address] [place] [address], Phone - [phone], Director - [facility] Notes/Report: Vitamin D, 25-Hydroxy 24.3 30.0-100.0 ng/mL Medicine and an Endocrine Society practice guideline as a level of serum 25-OH vitamin D less than 20 ng/mL (1,2). guideline. JCEM. 2010; 96(7):1911-30. insufficiency as a level between 21 and 29 ng/mL (2). Evaluation, treatment, and prevention of vitamin D 1. IOM ([place] of Medicine). 2010. Dietary reference 2. Emani MF, Chinyere NC, Cruzito SMALL, et al. deficiency: an Endocrine Society clinical practice National Academies Press. The Endocrine Society went on to further define vitamin D intakes for calcium and D. Arias [place]: The Vitamin D deficiency has been defined by the [place] of CBC With Differential/Platel et Reviewed date:02/15/2025 01:23:48 PM Interpretation: Performing Lab:[facility] [place], [address] [facility], Phone - [phone], Director - PhDShahnaz Notes/Report: WBC 10.3 3.4-10.8 x10E3/uL RBC 4.63 4.14-5.80 x10E6/uL Hemoglobin 14.4 13.0-17.7 g/dL Hematocrit 42.4 37.5-51.0 % MCV 92 79-97 fL MCH 31.1 26.6-33.0 pg MCHC 34.0 31.5-35.7 g/dL RDW 12.9 11.6-15.4 % Platelets 314 150-450 x10E3/uL Neutrophils 62 Not Estab. % Lymphs 28 Not Estab. % Monocytes 7 Not Estab. % Eos 1 Not Estab. % Basos 1 Not Estab. % Immature Cells ARCADE TECHNICIAN Neutrophils (Absolute) 6.5 1.4-7.0 x10E3/uL Lymphs (Absolute) 2.9 0.7-3.1 x10E3/uL Monocytes(Absolute) 0.7 0.1-0.9 x10E3/uL Eos (Absolute) 0.1 0.0-0.4 x10E3/uL Baso (Absolute) 0.1 0.0-0.2 x10E3/uL Immature Granulocytes 1 Not Estab. % Immature Grans (Abs) 0.1 0.0-0.1 x10E3/uL NRBC ARCADE TECHNICIAN Hematology Comments: ARCADE TECHNICIAN Vitamin B12 and Folate Reviewed date:02/15/2025 01:23:48 PM Interpretation: Performing Lab:[facility] [place], [address] [facility], [place], Phone - [phone], Director - Brynn Notes/Report: Vitamin B12 012 854-6717 pg/mL Folate (Folic Acid), Serum 2.7 >3.0 ng/mL A serum folate concentration of less than 3.1 ng/mL is considered to represent clinical deficiency. Hemoglobin A1C Reviewed date:04/23/2025 08:48:44 AM Interpretation: Performing Lab: Notes/Report: HbA1c 5.6 Reason For Referral Reason screening for colon cancer Diagnosis 1 Screen for colon can cer (Z12.11) [facility] Referring Provider First Name Cathy Referring Provider Last Name Oj Referring Provider Speciality Nurse Be ledesam Referred Provider Specialty Gastroentero logy General Notes Betty Gleason 02/17 09:22:18 AM > sig Referral Priority Routine Reason colonoscopy Diagnosis 1 Encounter for genera l adult medical examination without abnormal findings (Z00.00) [facility] Referring Provider First Name Cathy Referring Provider Last Name Oj Referring Provider Speciality Nurse Be ledesma Referred Provider Specialty Gastroentero logy General Notes Betty Gleason 02/17 09:21:52 AM >sig Referral Priority Routine Reason colonoscopy Diagnosis 1 Rectal bleeding (K62 .5) Referral Organization [facility] Referring Provider First Name Cathy Referring Provider Last Name Oj Referring Provider Speciality Nurse Be ledesma Referred Provider Specialty Gastroentero logy General Notes Betty Gleason 03/03 08:44:01 AM > sig Referral Priority Routine Medications Medication SIG (Take, Route, Frequency, Duration) Notes Start Date End Date Status Jardiance 25 MG TAKE 1 TABLET BY GERMAINE TH EVERY DAY Active Lisinopril 10 MG TAKE 1 TABLET BY GERMAINE TH EVERY DAY Active Metoprolol Succinate ER 50 MG TAKE 3 TABLETS BY MOUTH EVERY 12 HOURS Active BD Pen Needle Katherine U/F 32G X 4 MM as directed; Duration: 30 Ac tive Rosuvastatin Calcium 20 MG TAKE 1 TABLET BY MOUTH EVERY DAY Orally Once a day Active Doc Aspirin 325mg take 1 tablet by ora ORAL Active Lantus SoloStar 100 UNIT/ML 0 Units in AM and 40 units in PM Subcutaneous As directed Active Rosuvastatin Calcium 20 MG TAKE 1 TABLET BY MOUTH EVERY DAY Orally Once a day Active Mounjaro 7.5 MG/0.5ML as directed Subcut aneous once a week 02/19/2025 Active Immunizations Vaccine Route Administration Date Status Comme nts Tdap (Boostrix, Adacel) IM Intramuscular 04/07/2023 Admini stered Flucelvax Quadrivalent (Influenza Vaccine) IM Intramuscular 05/30/2018 Administered Social History Sex Assigned At : Social History Observation Description Sex Assigned At Male Problems Problem Type SNOMED Code ICD Code Onset Dates Problem Status W/U Status Risk Notes Problem Diabetic foot ulcer (878263809) Other specified diabetes mellitus with foot ulcer (E13.621) Active confirmed Problem Vitamin deficiency (87764166) Vitamin deficiency, unspecified (E56.9) Active confirmed Problem Pain co-occurrent an d due to varicose veins of bilateral legs (20767999666864613) Varicose veins of bilateral lower extremities with pain (I83.813) Active confirmed Problem Pancreatic steatorrhea (26689670) Pancreatic steatorrhea (K90.3) Active confirmed Problem Chronic ulcer of huan t (954270248) Non-pressure chronic ulcer of other part of unspecified foot with unspecified severity (L97.509) Active confirmed Problem Non-pressure chr onic ulcer of other part of right foot limited to breakdown of skin (L97.511) Active confirmed Problem Chronic ulcer of right foot (disorder) (71545250448615621) Non-pressure chronic ulcer of other part of right foot with unspecified severity (L97.519) Active confirmed Problem Non-pressure chr onic ulcer of other part of left foot limited to breakdown of skin (L97.521) Active confirmed Problem Ulcer of left foot (disorder) (237637399) Non-pressure chronic ulcer of other part of left foot with unspecified severity (L97.529) Active confirmed Problem Long-term current us e of insulin (000341898) 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.4) Active confirmed Problem Atherosclerotic hear t disease of [place] coronary artery without angina pectoris (264781668582790) Coronary artery disease involving [place] coronary artery of [place] heart without angina pectoris (I25.10) Active confirmed Problem Vitamin D deficiency (74908354) Vitamin D deficiency (E55.9) Active confirmed Problem Lymphedema (67326901) Lymphedema (I89.0) Active confirmed Problem Heart disease (96421264) Cardiac disease (I51.9) Active confirmed Problem Type II diabetes mellitus without complication (567192445) Type 2 diabetes mellitus without complication, unspecified whether exterminator helper termite insulin use (E11.9) Active confirmed Problem Primary hypertension (94099391) Primary hypertension (I10) Active confirmed Problem Hyperglycemia due to type 2 diabetes mellitus (180407315992603) Type 2 diabetes mellitus with hyperglycemia (E11.65) 0 confirmed Agustin Problem Type 2 diabetes mellitus with other specified complication (E11.69) 0 confirmed Agustin Problem Type II diabetes mellitus without complication (543008492) Type 2 diabetes mellitus without complications (E11.9) 0 confirmed Agustin Problem Pure hypercholesterolemia (447505298) Pure hypercholesterolemia (E78.0) 0 confirmed Agustin Problem Mixed hyperlipidemia (252931712) Mixed hyperlipidemia (E78.2) 0 confirmed Agustin Problem Essential hypertension (47970971) Essential (primary) hypertension (I10) 0 confirmed Agustin Problem Acute sinusitis (07295264) Acute sinusitis, unspecified (J01.90) 0 confirmed Agustin Problem 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) 0 confirmed Agustin Problem Type II diabetes mellitus without complication (581244539) DM w/o complication type II (E11.9) 0 confirmed Agustin Problem Malignant tumor of testis (536826638) Malignant neoplasm of other and unspecified testis (C62.90) 0 confirmed Agustin Problem 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) 0 confirmed Agustin Vital Signs Heart Rate 73 /min 05/21/2025 Temperature 98.1 degrees Fahrenheit 05/21/2025 Respiratory Rate 14 /min 05/21/2025 Blood pressure diastolic 70 mm Hg 05/21/2025 Oximetry 97 % 05/21/2025 Height 77 in 05/21/2025 Blood pressure systolic 120 mm Hg 05/21/2025 Weight 226.0 lbs 05/21/2025 BMI 26.8 kg/m2 05/21/2025 Procedures Procedure Date Ordered Date Performed Result Body Sit e EAR IRRIGATION - Bilateral 02/14/2025 N/A Encounters Encounter Location Date Provider Diagnosis [address] [address] 02/14/2025 Cathy Mcwilliams Encounter for genera l adult medical examination without abnormal findings Z00.00 ; Encounter for screening for lipoid disorders Z13.220 ; Encounter for screening for diabetes mellitus Z13.1 ; Encounter for screening for other suspected endocrine disorder Z13.29 ; Vitamin deficiency, unspecified E56.9 ; Screen for colon cancer Z12.11 ; Type 2 diabetes mellitus without complication, unspecified whether exterminator helper termite insulin use E11.9 ; Mixed hyperlipidemia E78.2 ; Low testosterone R79.89 ; Primary hypertension I10 ; Pancreatic steatorrhea K90.3 ; Coronary artery disease involving [place] coronary artery of [place] heart without angina pectoris I25.10 ; Rectal bleeding K62.5 ; Bilateral impacted cerumen H61.23 ; Type 2 diabetes mellitus without complications E11.9 and 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 Z79.4 [facility] [address] [place] [phone] 03/18/2025 Cathy Mcwilliams Type 2 diabetes mellitus without complication, unspecified whether exterminator helper termite insulin use E11.9 ; Mixed hyperlipidemia E78.2 ; Low testosterone R79.89 ; Primary hypertension I10 ; Coronary artery disease involving [place] coronary artery of [place] heart without angina pectoris I25.10 ; Type 2 diabetes mellitus without complications E11.9 and Other specified diabetes mellitus with foot ulcer E13.[address] [address] 04/23/2025 Cathy [place] Type 2 diabetes mellitus without complications E11.9 ; Primary hypertension I10 ; Mixed hyperlipidemia E78.2 and Low testosterone R79.89 [facility] [address] [place] [address] 05/21/2025 Cathy Mcwilliams Type 2 diabetes mellitus without complications E11.9 ; Primary hypertension I10 ; Mixed hyperlipidemia E78.2 and Low testosterone R79.[address] [address] 06/23/2024 [facility] [address] [place] [phone] 11/15/2024 [facility] [address] [place] [address] 11/26/2024 [facility] [address] [place] [address] 01/31/2025 Rekha Leon [facility] [address] [place] [address] 02/11/2025 [facility] [address] [place] [address] 02/18/2025 [facility] [address] [place] [address] 03/17/2025 [facility] [address] [place] [address] 05/08/2025 Cathy Mcwilliams Type 2 diabetes mellitus without complications E11.9 Assessments Encounter Date Diagnosis (ICD Code) Assessment Notes Treatment Notes Treatment Clinical Notes Section Notes 02/14/2025 Encounter for screening for lipoid disorders (ICD-10 - Z13.220) 02/14/2025 Encounter for general adult medical examination without abnormal findings (ICD-10 - Z00.00) 03/18/2025 Mixed hyperlipidemia (ICD-10 - E78.2) 03/18/2025 Type 2 diabetes mellitus without complication, unspecified whether exterminator helper termite insulin use (ICD-10 - E11.9) 04/23/2025 Type 2 diabetes mellitus without complications (ICD-10 - E11.9) 04/23/2025 Primary hypertension (ICD-10 - I10) 05/08/2025 Type 2 diabetes mellitus without complications (ICD-10 - E11.9) 05/21/2025 Type 2 diabetes mellitus without complications (ICD-10 - E11.9) 04/23/2025 Mixed hyperlipidemia (ICD-10 - E78.2) 02/14/2025 Encounter for screening for diabetes mellitus (ICD-10 - Z13.1) 03/18/2025 Low testosterone (ICD-10 - R79.89) 05/21/2025 Primary hypertension (ICD-10 - I10) 02/14/2025 Encounter for screening for other suspected endocrine disorder (ICD-10 - Z13.29) 04/23/2025 Low testosterone (ICD-10 - R79.89) 03/18/2025 Primary hypertension (ICD-10 - I10) 05/21/2025 Mixed hyperlipidemia (ICD-10 - E78.2) 05/21/2025 Low testosterone (ICD-10 - R79.89) 03/18/2025 Coronary artery disease involving [place] coronary artery of [place] heart without angina pectoris (ICD-10 - I25.10) 02/14/2025 Vitamin deficiency, unspecified (ICD-10 - E56.9) 02/14/2025 Screen for colon cancer (ICD-10 - Z12.11) 03/18/2025 Type 2 diabetes mellitus without complications (ICD-10 - E11.9) 03/18/2025 Other specified diabetes mellitus with foot ulcer (ICD-10 - E13.621) 02/14/2025 Type 2 diabetes mellitus without complication, unspecified whether nursing home insulin use (ICD-10 - E11.9) 02/14/2025 Mixed hyperlipidemia (ICD-10 - E78.2) 02/14/2025 Low testosterone (ICD-10 - R79.89) 02/14/2025 Primary hypertension (ICD-10 - I10) 02/14/2025 Pancreatic steatorrhea (ICD-10 - K90.3) 02/14/2025 Coronary artery disease involving [place] coronary artery of [place] heart without angina pectoris (ICD-10 - I25.10) 02/14/2025 Rectal bleeding (ICD-10 - K62.5) examination shows hemorrids 02/14/2025 Bilateral impacted cerumen (ICD-10 - H61.23) 02/14/2025 Type 2 diabetes mellitus without complications (ICD-10 - E11.9) 02/14/2025 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 (ICD-10 - Z79.4) Plan Of Treatment Pending Test Test Name Order Date Urinalysis, Routine 07/11/2016 EAR IRRIGATION - Bilateral 02/14/2025 Alk Phos Isoenzyme 04/29/2021 Insurance Providers Payer Name Payer Address Payer Phone Subscriber Number Group Number Insured Name Patient Relationship to Insured Coverage Start Date Coverage End Date [employer] [address] [place] [address] [id number] Richie Walden Self - patient is the insured Medications Administered Medication Instructions Date of Administration Dosage Notes cefTRIAXone Sodium 04/07/2023 1000 mg 500 ea ch cheek cefTRIAXone Sodium 05/24/2023 1 g 500MG IN EACH CHEEK Medical (General) History Medical History History ICD Code appendicitis coronary artery disease Surgical History Surgery Date(Month/Year) appendectomy stent placement
[2025-06-23] MEDS: ASPIRIN 81 MG CHEWABLE TABLET 324 MG PO (19:14)
--- NOTE | 2025-06-23 19:15 | ED.CHESTPAIN ---
HPI - Chest Pain General Chief Complaint: Chest Pain Stated Complaint: Chest pain with radiation down left arm Time Seen by Provider: 06/23/25 19:10 History of Present Illness HPI narrative: Patient is a 64-year-old male who presents to the ER with chest pain. Reports began this morning when he went to work and felt like indigestion. It progressed throughout the day and is radiating to his left shoulder and down his left arm. He has history of heart attack in the past and has 1 stent. He is not on blood thinners. He cannot describe aggravating or alleviating factors. 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 No nausea vomiting or diaphoresis. Related Data Home Medications ?Medication ?Instructions ?Recorded ?Confirmed ?Last Taken ?Type aspirin 325 mg tablet 325 mg PO DAILY 03/19/20 03/19/20 Unknown History rosuvastatin 20 mg tablet 20 mg PO DAILY 03/19/20 03/19/20 03/18/20 21:00 History Allergies Allergy/AdvReac Type Severity Reaction Status Date / Time No Known Allergies Allergy Verified 06/23/25 19:23 Review of Systems Review of Systems: All systems reviewed & are unremarkable except as noted in HPI and below Constitutional: Constitutional: Reports no additional constitutional complaints ENT: Reports system reviewed and no additional complaints, except as documented Cardiovascular: Cardiovascular: Reports no additional cardiovascular complaints Respiratory: Respiratory: Reports no additional respiratory complaints Gastrointestinal: Gastrointestinal: Reports no additional gastrointestinal complaints [facility] Past Medical History Medical History (Updated 06/23/25 @ 22:04 by Mika Navarrete MD) Pancreatic abnormality Upper abdominal pain Diabetes mellitus type 2 with complications, uncontrolled Elevated liver enzymes Hyperlipidemia Hypertension Coronary artery disease Diabetes Surgical History Surgical History History of appendectomy Family History Family History Mother Breast cancer Lung cancer Father Lung cancer Social History Social History Social History: 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 He has 2 children who are healthy. 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 He desires to be a full code. He is a lifelong nonsmoker. He does not use any alcohol marijuana or illicit drugs. Drinks per week: 0 Substance use: never Gender identity (if verbalized by the patient): Male Spiritual care concerns: No Exam Narrative: GENERAL: Well-appearing, well-nourished, and in no acute distress. HEAD: Normocephalic, atraumatic. ENT: Mucous membranes moist. CHEST: Clear to auscultation. No respiratory distress. HEART: Regular rate and rhythm. Normal peripheral pulses. ABDOMEN: Soft, nontender, nondistended. EXTREMITIES: Normal range of motion. No edema. SKIN: Warm, dry, no rash. NEURO: Alert and oriented x3. PSYCH: Normal mood and affect. Course Course Emergency Course: 1914: Discussed with Dr. Snow with interventional cardiology. Load with ASA and heparin. No brilinta. Patient has had two 81mg ASA at home and will receive two more. Pain /, will give nitro. 1932: Nitro #1 brought pain down to 6/10. 1946: Blood pressure is persistently elevated despite oral nitroglycerin. Will start a nitroglycerin drip. Patient still resting comfortably and in no distress. Troponin elevated. 1955: Cath team taking patient to CV suite. Vital Signs Vital signs: Vital Signs Temperature 98.2 F 06/23/25 19:10 Pulse Rate 99 06/23/25 19:10 Respiratory Rate 22 H 06/23/25 19:10 Blood Pressure 195/125 H 06/23/25 19:10 Pulse Oximetry 100 06/23/25 19:10 Temperature 98.2 F 06/23/25 20:26 Pulse Rate 87 06/23/25 20:26 Respiratory Rate 20 06/23/25 20:26 Blood Pressure 180/111 H 06/23/25 20:26 Pulse Oximetry 95 06/23/25 20:26 [facility] Differential Diagnosis Differential Diagnosis: STEMI, non ST-elevation VT, aortic dissection, hypertensive emergency Lab Data [facility] Lab Attestation statement: I personally reviewed the patient's lab results. 06/23/25 19:13 06/23/25 19:13 Labs: Lab Results 06/23/25 Range/Units 19:13 WBC Pending RBC Pending Hgb Pending Hct Pending MCV Pending MCH Pending MCHC Pending RDW Pending Plt Count Pending MPV Pending Immature Gran % (Auto) Pending Neut % (Auto) Pending Lymph % (Auto) Pending [place] % (Auto) Pending Eos % (Auto) Pending Baso % (Auto) Pending Lymph # (Auto) Pending [place] # (Auto) Pending Eos # (Auto) Pending Baso # (Auto) Pending Abs Immat Gran (auto) Pending Absolute Neuts (auto) Pending Absolute Nucleated RBC Pending Nucleated RBC % Pending % Immature Plt Fraction Not Reportable PT Pending INR Pending APTT Pending Sodium 141 (137-145) mmol/L Potassium 4.5 (3.4-5.0) mmol/L Chloride 104 (98-107) mmol/L Carbon Dioxide 28 (22-30) mmol/L Anion Gap 9 (4-12) mmol/L BUN 6 L D (9-20) mg/dL Creatinine 1.27 (0.7-1.3) mg/dL Estim Creat Clear Calc 63 ml/min Estimated GFR 57 L (59 - ) Glucose 104 (65-110) mg/dL Hemoglobin A1c Pending Calcium 9.9 (8.4-10.2) mg/dL Total Bilirubin 0.9 (0.2-1.3) mg/dL AST 38 (17-59) U/L ALT 35 (6-50) U/L Alkaline Phosphatase 173 H (38-126) U/L Troponin I 0.300 H* (0.000-0.034) ng/mL Total Protein 8.6 H (6.3-8.2) g/dL Albumin 4.5 (3.5-5.1) g/dL Triglycerides Pending Cholesterol Pending LDL Cholesterol Direct Pending HDL Direct Pending Lipase 48 (23-300) U/L Imaging Data Radiologist's impression: ITS Impressions Chest X-Ray 06/23/25 19:50 IMPRESSION: No acute pulmonary findings. ECG Data EKG #1: ECG completion date: 06/23/25 ECG completion time: 19:05 Ischemic changes: acute STEMI normal rate (85), sinus rhythm and ST elevation (V2-5. Most pronounced V3/4. Also III/aVF.) Critical Care Time Critical Care Time Critical Care Time: Yes Time Type: Intermittent Initial evaluation, discuss w/ involved parties, attempting to gather old records: 10 minutes Documenting medical record: 5 minutes Review of results (EKG's, labs, imaging): 5 minutes Serial repeat bedside evaluation: 10 minutes Discussing case with multiple memebers of the care team and consultants: 5 minutes Total Critical Care Time: 35 Discharge Plan Discharge Clinical Impression: ST elevation (STEMI) myocardial infarction Patient Disposition: Still a Patient Condition: Serious
[2025-06-23] MEDS: NITROGLYCERIN SL 0.4 MG TABLET (19:25)
[2025-06-23 19:29] LABS: Alanine Aminotransferase 35 U/L (6-50); Albumin Level 4.5 g/dL (3.5-5.1); Alkaline Phosphatase 173 U/L (38-126); Anion Gap 9 mmol/L (4-12); Aspartate Amino Transferase 38 U/L (17-59); Bilirubin,Total 0.9 mg/dL (0.2-1.3); Blood Urea Nitrogen 6 mg/dL (9-20); Calcium 9.9 mg/dL (8.4-10.2); Carbon Dioxide 28 mmol/L (22-30); Chloride 104 mmol/L (98-107); Estimated CRCL calculation 63 ml/min; Estimated Glomerular Filt Rate 57; Glucose 104 mg/dL (65-110); Lipase 48 U/L (23-300); Potassium 4.5 mmol/L (3.4-5.0); Sodium 141 mmol/L (137-145); Total Protein 8.6 g/dL (6.3-8.2)
--- NOTE | 2025-06-23 19:35 | PC.NURSE ---
pt took 2 81 mg of aspirin MANAGER SYSTEM
[2025-06-23 19:36] LABS: INR 0.9; Prothrombin Time 12.6 Seconds (11.1-14.7)
[2025-06-23 19:37] LABS: Partial Thromboplastin Time 26.1 Seconds (22.3-36.8)
--- OUTSIDE RECORDS SUMMARY | 2025-06-23 19:38 | XMS_ITS | Clinical Summary ---
Author Organization [facility] Address [address] [place] [address] Care Team Providers Care Brand Mgr Name Role Phone Unavailable Primary Care Provider Unavailabl e Source Comments [facility],non-owned Affiliates and Associated Physician Practices is amultiple site organization consisting of ambulatory clinics and hospital sitesin [place], [place], [place] and [place]. This disclosure is being madepursuant to the Care Everywhere program and may not contain all information available regarding this patient. Last updated 18.[facility] Social History Tobacco Use Types Packs/Day Years [...]
[2025-06-23] MEDS: NITROGLYCERIN SL 0.4 MG TABLET SUBLINGUAL (19:41)
[2025-06-23 19:46] LABS: Troponin I 0.300 ng/mL (0.000-0.034)
[2025-06-23] MEDS: NITROGLYCERIN/D5W 200 MCG/ML 50 MG/250 ML BTL IV CONT (19:51)
--- NOTE | 2025-06-23 19:56 | PC.NURSE ---
laborer electroplating team arrived @1951 to take pt to ear mold laboratory technician
--- NOTE | 2025-06-23 21:45 | ECG_ITS ---
Test Date: 2025-06-23 23:11:07 Measurements Intervals [place] Rate: 79 P: 24 [place]: 186 QRS: -2 QRSD: 113 T: 43 QT: 407 QTc: 467 Interpretive Statements SINUS RHYTHM INTRAVENTRICULAR CONDUCTION DELAY INFERIOR INFARCT, AGE INDETERMINATE ANTEROLATERAL ST ELEVATION MYOCARDIAL INFARCT- ACUTE BASELINE ARTIFACT- I, III, AVR, AVL ABNORMAL ECG Compared to ECG 06/23/2025 19:05:12 NO SIGNIFICANT CHANGE Electronically Signed On 06-23-2025 23:30:54 SUBSTATION OPERATOR HELPER GENERATION by Son Lopez D.O.
--- NOTE | 2025-06-23 21:51 | PM.IMHP2 ---
H&P: HPI History of Present Illness Date/Time: 06/23/25 21:51 Chief Complaint: STEMI Narrative: Patient is a 64-year-old male with previous medical history of CAD status post PCI in 2009, AVNRT, diabetes, hypertension, hyperlipidemia. Patient presented with acute onset left-sided central chest pain radiating to his left arm that began since this morning but has continued to become acutely worse. On presentation to the ED patient noted to have anterolateral ST elevations. STEMI page activated and patient brought for urgent catheterization. 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 He has 2 children who are healthy. His Vera is his durable power managing attorney for healthcare. He desires to be a full code. He is a lifelong nonsmoker. He does not use any alcohol marijuana or illicit drugs. Drinks per week: 0 Substance use: never Gender identity (if verbalized by the patient): Male Spiritual care concerns: No Meds Home Medications and Allergies Home Medications ?Medication ?Instructions ?Recorded ?Confirmed ?Type aspirin 325 mg tablet 325 mg PO DAILY 03/19/20 03/19/20 History rosuvastatin 20 mg tablet 20 mg PO DAILY 03/19/20 03/19/20 History insulin detemir U-100 100 unit/mL 25 unit (0.25 mL) subcut Q12H #0 mL 03/24/20 03/24/20 Rx (3 mL) subcutaneous pen (Levemir FlexTouch U-100 Insulin) lisinopril 2.5 mg tablet 5 mg (2 x 2.5 mg) PO DAILY #0 tabs 03/24/20 03/19/20 Rx metoprolol tartrate 50 mg tablet 150 mg (3 x 50 mg) PO Q12HR #180 03/24/20 Rx tabs cephalexin 500 mg capsule 500 mg PO Q8H 7 days #21 caps 05/30/23 Rx metronidazole 500 mg tablet 500 mg PO Q12H 7 days #14 tabs 05/30/23 Rx Allergies Allergy/AdvReac Type Severity Reaction Status Date / Time No Known Allergies Allergy Verified 06/23/25 19:23 Vital Signs Vital Signs - 24 hr 06/23/25 19:10 06/23/25 19:41 06/23/25 19:42 Temperature 36.8 C Pulse Rate 99 87 86 Respiratory Rate 22 H 20 Blood Pressure 195/125 H 180/111 H Pulse Oximetry 100 95 06/23/25 19:51 06/23/25 20:26 Temperature 36.8 C Pulse Rate 81 87 Respiratory Rate 20 Blood Pressure 180/111 H 180/111 H Pulse Oximetry 95 Exam Narrative: GENERAL: Well-appearing, well-nourished, and in no acute distress. HEAD: Normocephalic, atraumatic. ENT: Mucous membranes moist. CHEST: Clear to auscultation. No respiratory distress. HEART: Regular rate and rhythm. Normal peripheral pulses. ABDOMEN: Soft, nontender, nondistended. EXTREMITIES: Normal range of motion. No edema. SKIN: Warm, dry, no rash. NEURO: Alert and oriented x3. PSYCH: Normal mood and affect. Results Labs Labs: [facility] 06/23/25 19:13 Sodium 141 Potassium 4.5 Chloride 104 Carbon Dioxide 28 BUN 6 L D Creatinine 1.27 Glucose 104 Calcium 9.9 Cardiac Enzymes 06/23/25 Range/Units 19:13 Troponin I 0.300 H* (0.000-0.034) ng/mL Liver Function 06/23/25 Range/Units 19:13 Total Bilirubin 0.9 (0.2-1.3) mg/dL AST 38 (17-59) U/L ALT 35 (6-50) U/L Alkaline Phosphatase 173 H (38-126) U/L Albumin 4.5 (3.5-5.1) g/dL Quality If No VTE Prophylaxis Answer both mechanical and pharmacologic: Reason no mechanical VTE proph: low risk/not indicated Assessment and Plan Assessment and plan (1) ST elevation (STEMI) myocardial infarction: Code(s): I21.3 - ST elevation (STEMI) myocardial infarction of unspecified site Status: Acute Assessment and Plan: -patient underwent left heart catheterization that demonstrated: LEAD CARGOMAN of mid RCA stent with well-developed [id number] collaterals, severe stenosis in mid left circumflex, severe stenosis and proximal LAD. Patient underwent successful placement of RICK to mid circumflex and successful RICK placement to proximal LAD - continue patient on aspirin and Brilinta for minimum of 1 year post STEMI -continue patient on rosuvastatin 20 mg -start patient on lisinopril 2.5 mg daily and metoprolol succinate 25 mg daily, up titrate as tolerated -obtain formal echocardiogram -continue patient on telemetry (2) Coronary artery disease: Code(s): I25.10 - Atherosclerotic heart disease of [place] coronary artery without angina pectoris Status: Acute Assessment and Plan: -continue patient on guideline directed medical therapy for coronary artery disease as described above (3) Diabetes mellitus type 2 with complications, uncontrolled: Code(s): E11.8 - Type 2 diabetes mellitus with unspecified complications; E11.65 - Type 2 diabetes mellitus with hyperglycemia Status: Acute Assessment and Plan: -monitor patient's blood glucose while inpatient. Follow up on A1c. Continue patient on insulin, as patient was already on insulin now (4) Hyperlipidemia: Code(s): E78.5 - Hyperlipidemia, unspecified Status: Chronic Assessment and Plan: -continue patient on rosuvastatin 20 mg daily. Target LDL less than 70. Up titrate as needed (5) Hypertension: Code(s): I10 - Essential (primary) hypertension Status: Chronic Assessment and Plan: -continue patient on hypertensive medications as described above
[2025-06-23 22:04] LABS: Cholesterol 235 mg/dL (0-200); HDL Direct 35 mg/dL; Hemoglobin A1C 7.3 % (<5.7); Triglycerides 196 mg/dL (<150)
[2025-06-23 22:17] LABS: Hematocrit 53.4 % (42.0-52.0); Hemoglobin 17.2 g/dL (14.0-18.0); Immature Granulocyte Percent A 0.5 % (0-0.5); Lymphocytes Absolute Auto 3.67 K/mm3 (0.9-3.2); Mean Corpuscular HGB Conc 32.2 g/dl (32-36); Mean Corpuscular Hemoglobin 27.6 pg (26-34); Mean Corpuscular Volume 85.6 fl (80-100); Nucleated Red Blood Cells Absolute Auto 0.000 K/mm3 (0.0-0.012); Nucleated Red Blood Cells Perc 0.0 % (0.0-0.2); Platelet Count Result 302 k/mm3 (150-375); Red Blood Count 6.24 M/mm3 (4.6-6.20); White Blood Count 10.9 K/mm3 (4.5-10.0)
--- NOTE | 2025-06-23 22:22 | WPDCARDPROC ---
Cardiac Cath Procedure Note Date of procedure:: 06/23/25 Performing physician:: Kavon Snow MD Indication:: Anterior STEMI Brief clinical history:: Patient is a 64-year-old male with previous medical history of CAD status post PCI in 2009, AVNRT, diabetes, hypertension, hyperlipidemia. Patient presented with acute onset left-sided central chest pain radiating to his left arm that began since this morning but has continued to become acutely worse. On presentation to the ED patient noted to have anterolateral ST elevations. STEMI page activated and patient brought for urgent catheterization. Procedure Procedure performed:: Left heart catheterization Percutaneous coronary intervention to left main and LAD Percutaneous coronary intervention to left circumflex Intravascular ultrasound Ultrasound-guided access of right radial artery Moderate sedation Sedation/Medication given:: Fentanyl 25 mcg, Versed 1 mg, administered by sedation nurse Felecia Gill RN. The start time 8:11 p.m., case stop time 9:30 p.m. Access site:: Right radial artery status post TR band Estimated blood loss:: 0 Procedure note:: Initially diagnostic angiogram was performed using a 5 [place] JR4 catheter that was used to engage the right coronary artery and a 6 [place] EBU 4-0 guide catheter that was used to engage the left main coronary artery. Diagnostic angiogram findings: Left main coronary artery: Large and angiographically normal Left anterior descending artery: Large vessel with proximal 80% calcified stenosis followed by poststenotic dilatation, then followed by a mid segment 60% stenosis. D1 is small with diffuse disease. Left circumflex artery: Medium vessel. OM1 is large with proximal severe 90% stenosis. OM2 and OM3 are small to medium vessel that give collaterals to right system. Right coronary artery: Medium vessel with proximal moderate stenosis up to 50% followed by mid segment total occlusion. RV branch extends to inferior wall. Distal RCA receives left to right collaterals. LVEDP 18 mm Hg. No LV-aortic gradient on pullback Opening pressure 127/65 mm Hg. Closing pressure 146/69 mm Hg Intervention procedure note: The left main coronary artery was engaged with a 6 [place] EBU 4.0 guide. A BMW wire was placed in the left circumflex and a run-through wire was placed in the LAD. Heparin was given for anticoagulation and ACT was maintained over 250. A luiz pro 2.0 x 10 balloon was inflated in proximal LAD up to 7 atmospheres. We proceeded with intervention of the left circumflex/OM1 after first. The proximal lesion was pre-dilated with a 2.0 x 10 balloon inflated up to 14 atmospheres followed by the placement of a 3.0 x 15 Errol RICK depolyed at 16 jane, post dilated with a 3.0 X 12 NC balloon up to 16 atmospheres. We then shifted our attention to the proximal LAD. IVUS was used to evaluate vessel size and assess for calcification. We noted that the proximal LAD measured 3.2 x 3.5 mm with some < 180 degree calcification and the left main artery measured 4.5 to 5.0 mm in diameter. We then proceeded with the placement of a 3.5 x 15 [place] RICK depolyed at 16 jane in the proximal LAD. The LCx wire was retracted and rewired. Then we post dilated the proximal LAD with a 3.5 X 12 NC balloon up to 16 atmospheres and then the distal LMCA with a 5.0 X 8 NC balloon up to 10 atmospheres. Finally the stretch to the left circumflex were dilated with a 2.0 x 10 balloon inflated up to 10 atmospheres. Repeat IVUS demonstrated a well-opposed stent. Coronary wires were removed and final angiography demonstrated no dissections or perforations patient tolerated the procedure well and was transferred to the intensive care unit for admission. Findings:: 1. Severe CAD with proximal LAD 80% stenosis (likely culprit), proximal left circumflex/OM1 90% stenosis and mid RCA total occlusion with [id number] collaterals 2. Successful PCI of proximal left circumflex/OM1 using 3.0 x 15 Errol RICK, post dilated with a 3.0 X 12 NC balloon up to 16 atmospheres. 3. Successful IVUS guided PCI of LMCA into proximal LAD using a 3.5 x 15 Errol RICK, post dilated in proximal LAD with a 3.5 X 12 NC balloon up to 16 atmospheres and in distal LMCA with a 5.0 X 8 NC balloon. 4. LVEDP 18mmHg Assessment and Plan Assessment and plan (1) ST elevation (STEMI) myocardial infarction: Code(s): I21.3 - ST elevation (STEMI) myocardial infarction of unspecified site Status: Acute Plan - Continue patient on aspirin and Brilinta for minimum of 1 year post STEMI - Continue patient on rosuvastatin 20 mg - Start patient on lisinopril 2.5 mg daily and metoprolol succinate 25 mg daily, up titrate as tolerated - Obtain formal echocardiogram
--- NOTE | 2025-06-23 22:26 | ADMGEN ---
This patient, Richie Walden, was admitted to ICU-2 at 2200. Patient/family oriented to hospital policies and general routines including ID bracelet, bed and alarms, visiting hours, pain management, procedures, bathroom and other care routines, personal items, smoking policy, room service/diet, and visiting hours. Information on how to activate the Rapid Response Team has been discussed. Patient/Family are encouraged to report perceived risks to care and to ask questions if they do not understand what they are told or what they should do.
[2025-06-24] VITALS (36 sets, daily range): BP systolic 117–176; BP diastolic 73–119; PULSE 77–107; RESP 12–27; TEMP 36.3–37.1; O2SAT 94–98
--- NOTE | 2025-06-24 | ECHO_ITS ---
Patient Info Name: Richie Walden Age: 64 years : 1960 Gender: Male Ht: 75 in Wt: 224 lbs BSA: 2.33 m2 HR: 92 bpm BP: 137 / 92 mmHg Heart Rhythm: Sinus Rhythm Technical Quality: Fair Exam Date: 06/24/2025 4:09 PM Patient Status: I Admit Date: 06/23/2025 Exam Type: CA echo dop color flow w con Complete two-dimensional, color flow and Doppler transthoracic echocardiogram is performed with contrast to opacify the left ventricle and to improve the deliniation of the left ventricle endocardial borders. Staff Referring Physician: Mika Navarrete MD Avid Editor: Shakila العراقي Attending Provider: Kavon Snow Contrast/Agitated Saline Contrast/Ag. Saline: Definity Amount: 2.00 ml Administered By: Shakila العراقي Existing IV Access: Yes IV Access Condition: patent with no signs of infiltration Summary 1. There is mildly increased left ventricular wall thickness. 2. The left ventricular diastolic function is abnormal. 3. Left ventricular systolic function is normal, estimated at 25-30. 4. The apical septum, apical lateral wall, apical inferior wall, apical cap, mid inferior wall, mid inferoseptal, and mid anteroseptal are akinetic. Left Ventricle Left ventricular chamber dimension is normal. Left ventricular systolic function is normal, estimated at 25-30. There is mildly increased left ventricular wall thickness. The left ventricular diastolic function is abnormal. The apical septum, apical lateral wall, apical inferior wall, apical cap, mid inferior wall, mid inferoseptal, and mid anteroseptal are akinetic. Right Ventricle Right ventricular chamber dimension is normal. Right ventricular systolic function is normal. Left Atria Left atrial chamber dimension is normal. Right Atria Right atrial chamber dimension is normal. Aortic Valve The aortic valve is trileaflet. There is no aortic valve sclerosis. There is no aortic valve stenosis. There is no aortic valve regurgitation. Pulmonic Valve The pulmonic valve is normal. There is no pulmonic valve stenosis. There is no pulmonic regurgitation. Mitral Valve The mitral valve has normal leaflets. There is no mitral valve stenosis. There is no mitral valve regurgitation. Tricuspid Valve The tricuspid valve leaflets are normal. There is no significant tricuspid valve stenosis. There is no tricuspid valve regurgitation. Pericardium/Pleural The pericardium appears normal. There is no pericardial effusion. Inferior Vena Cava Normal inferior vena cava with >50% collapse upon inspiration consistent with normal right atrial pressure, 5 mmHg. Aorta The aortic root size at the sinus of Valsalva is normal. The prox ascending aorta size is normal. Left Ventricular Outflow Tract Name Value Normal LVOT 2D LVOT Diameter 2.0 cm LVOT Doppler LVOT Peak Velocity 60 cm/s LVOT Peak Gradient 1 mmHg LVOT Mean Gradient 1 mmHg LVOT VTI 10 cm LVOT VTI/AV VTI Ratio 0.8 LVOT Stroke Volume 32 ml LVOT CO 2.7 l/min LVOT CI 1.2 l/min/m2 Pulmonic Valve Name Value Normal RVOT Doppler RVOT Peak Velocity 77 cm/s RVOT Peak Gradient 2 mmHg PV Doppler PV Peak Velocity 107 cm/s PV Peak Gradient 5 mmHg Mitral Valve Name Value Normal MV Diastolic Function MV E Peak Velocity 92 cm/s MV A Peak Velocity 6 cm/s MV E/A 15.2 MV Decel Time (PW) 114 ms MV Annular TDI MV E/e' (Septal) 11.4 MV E/e' (Lateral) 20.5 MV E/e' (Average) 15.9 Tricuspid Valve Name Value Normal Estimated PAP/RSVP RA Pressure 5 mmHg <=5 TV Annular TDI TV Lateral Leann s' Velocity 17.0 cm/s >=9.5 Aorta Name Value Normal Ascending Aorta Ao Root Diameter (MM) 3.8 cm Ao Root Diam Index (MM) 1.6 cm/m2 Aortic Valve Name Value Normal AV Doppler AV Peak Velocity 88 cm/s AV Peak Gradient 3 mmHg AV Mean Gradient 2 mmHg AV VTI 13 cm AV Area (Cont Eq VTI) 2.5 cm2 >=3.0 AV Area (Cont Eq Heber) 2.2 cm2 AV DI (Heber) 0.68 AV Regurgitation 2D LVOT Area 3.2 cm2 Ventricles Name Value Normal LV Dimensions 2D/MM IVS Diastolic Thickness (2D) 1.2 cm 0.6-1.0 LVID Diastole (2D) 4.3 cm 4.2-5.8 LVIW Diastolic Thickness (2D) 1.1 cm 0.6-1.0 LVID Systole (2D) 3.6 cm 2.5-4.0 LVOT Diameter 2.0 cm LV Mass (2D Cubed) 177.47 g 88.00-224.00 LV Mass Index (2D Cubed) 76 g/m2 49-115 Relative Wall Thickness (2D) 0.53 <=0.42 LV Fractional Shortening/Ejection Fraction 2D/MM LV Fractional Shortening (2D) 16 % 25-43 LV EF (2D Teichholz) 34 % LV Diastolic Volume (4C MOD) 90 ml LV EF (4C MOD) 28 % LV Diastolic Volume (2C MOD) 84 ml LV EF (2C MOD) 32 % LV Diastolic Volume (BP MOD) 89 ml 62-150 LV Diastolic Volume Index (BP MOD) 38 ml/m2 34-74 LV Systolic Volume (BP MOD) 62 ml 21-61 LV Systolic Volume Index (BP MOD) 26 ml/m2 11-31 LV EF (BP MOD) 30 % 52-72 LV Diastolic Length (4C) 8.2 cm LV Systolic Length (4C) 8.2 cm LV Stroke Volume (4C MOD) 25 ml Atria Name Value Normal LA Dimensions LA Dimension (MM) 4.0 cm 3.0-4.0 LA Volume (4C A-L) 54 ml LA Volume (BP A-L) 62 ml RA Dimensions RA Area (4C) 13.2 cm2 <=18.0 Wall Motion Scoring Report Signatures
[2025-06-24] MEDS: ACETAMINOPHEN 325 MG TABLET 650 MG PO ×3 (01:29→14:20)
[2025-06-24 04:59] LABS: Hematocrit 52.4 % (42.0-52.0); Hemoglobin 17.2 g/dL (14.0-18.0); Mean Corpuscular HGB Conc 32.8 g/dl (32-36); Mean Corpuscular Hemoglobin 27.5 pg (26-34); Mean Corpuscular Volume 83.7 fl (80-100); Platelet Count Result 277 k/mm3 (150-375); Red Blood Count 6.26 M/mm3 (4.6-6.20); White Blood Count 11.6 K/mm3 (4.5-10.0)
[2025-06-24 05:23] LABS: Alanine Aminotransferase 39 U/L (6-50); Albumin Level 3.7 g/dL (3.5-5.1); Alkaline Phosphatase 160 U/L (38-126); Aspartate Amino Transferase 135 U/L (17-59); Bilirubin,Total 0.8 mg/dL (0.2-1.3); Calcium 9.0 mg/dL (8.4-10.2); Carbon Dioxide 23 mmol/L (22-30); Glucose 55 mg/dL (65-110); Potassium 3.9 mmol/L (3.4-5.0); Sodium 136 mmol/L (137-145)
[2025-06-24 05:49] LABS: Anion Gap 8 mmol/L (4-12); Blood Urea Nitrogen 5 mg/dL (9-20); Chloride 105 mmol/L (98-107); Estimated CRCL calculation 85 ml/min; Estimated Glomerular Filt Rate > 60; Total Protein 7.2 g/dL (6.3-8.2)
[2025-06-24] MEDS: ASPIRIN 81 MG CHEWABLE TABLET PO (07:59)
[2025-06-24] MEDS: ROSUVASTATIN 20 MG TABLET PO (08:00)
[2025-06-24] MEDS: METOPROLOL SUCCINATE EXT REL 25 MG TABCR PO (08:00)
[2025-06-24] MEDS: TICAGRELOR 90 MG TABLET PO ×2 (08:00→20:46)
--- NOTE | 2025-06-24 08:17 | ECG_ITS ---
Test Date: 2025-06-24 08:29:19 Measurements Intervals [place] Rate: 90 P: 20 [place]: 189 QRS: 1 QRSD: 108 T: 84 QT: 388 QTc: 477 Interpretive Statements SINUS RHYTHM WITH OCCASIONAL SUPRAVENTRICULAR PREMATURE COMPLEXES INFERIOR INFARCT, AGE INDETERMINATE ANTEROLATERAL ST ELEVATION MYOCARDIAL INFARCTION, PROBABLY RECENT ABNORMAL ECG Compared to ECG 06/23/2025 23:11:07 NO SIGNIFICANT CHANGE Electronically Signed On 06-24-2025 09:11:46 TRANSPORTATION PROJECT MANAGER by Son Lopez D.O.
--- NOTE | 2025-06-24 10:00 | WPDMODSED ---
Moderate Sedation Note-Pt Data Patient Data Diagnosis: Chest pain Present Complaint: Chest pain Procedure to be performed/Plan: Coronary angiogram Allergies Allergy/AdvReac Type Severity Reaction Status Date / Time No Known Allergies Allergy Verified 06/23/25 23:19 Home Medications ?Medication ?Instructions ?Recorded ?Confirmed ?Type aspirin 325 mg tablet 325 mg PO DAILY 03/19/20 06/23/25 History rosuvastatin 20 mg tablet 20 mg PO DAILY 03/19/20 06/23/25 History lisinopril 2.5 mg tablet 5 mg (2 x 2.5 mg) PO DAILY #0 tabs 03/24/20 06/23/25 Rx empagliflozin 25 mg tablet 25 mg PO DAILY 06/23/25 06/23/25 History (Jardiance) insulin degludec 100 unit/mL (3 160 unit subcut QAM 06/23/25 06/23/25 History mL) subcutaneous pen (Tresiba FlexTouch U-100 insulin) metoprolol succinate 50 mg 50 mg PO .Q12HR 06/23/25 06/23/25 History tablet,extended release 24 hr tirzepatide 7.5 mg/0.5 mL 7.5 mg subcut WEEKLY 06/23/25 06/23/25 History subcutaneous pen injector (Kaden) Current Medications: Active Medications Acetaminophen (Acetaminophen 325 Mg Tablet) 650 mg PO Q4H PRN PRN Reason: Mild Pain (1-3) or Fever Last Admin: 06/24/25 08:00 Dose: 650 mg Aspirin (Aspirin 81 Mg Chewable Tablet) 81 mg PO DAILY@0800 [facility] Last Admin: 06/24/25 07:59 Dose: 81 mg Dextrose (Dextrose 50% 25 Gm/50 Ml Syringe) 12.5 gm IV PUSH PRN PRN; Protocol PRN Reason: Hypoglycemia Empagliflozin (Empagliflozin 25 Mg Tablet) 25 mg PO DAILY [facility] Glucagon (Glucagon For Inj 1 Mg Vial) 1 mg IM PRN PRN; Protocol PRN Reason: Hypoglycemia Glucose (Glucose Oral Gel 15 Gm Of Glucse In 37.5 Gm Tube) 15 gm PO PRN PRN; Protocol PRN Reason: Hypoglycemia Dextrose (Dextrose 5% 1,000 Ml) 1,000 mls @ 100 mls/hr IVPB PRN PRN; Protocol PRN Reason: Hypoglycemia Insulin Aspart (Insulin Aspart (*Bkc) 100 Units/Ml) 1 - 3 units SUB-Q HS [facility]; Protocol Insulin Aspart (Insulin Aspart (*Bkc) 100 Units/Ml) 3 - 6 units SUB-Q TIDWM [facility]; Protocol Lisinopril (Lisinopril 5 Mg Tablet) 5 mg PO DAILY [facility] Metoprolol Succinate (Metoprolol Succinate Ext Rel 25 Mg Tabcr) 25 mg PO DAILY [facility] Last Admin: 06/24/25 08:00 Dose: 25 mg Ondansetron HCl (Ondansetron Inj 4 Mg/2 Ml Vial) 4 mg IV PUSH Q8H PRN PRN Reason: Nausea And Vomiting Perflutren Lipid Microsphere (Perflutren Lipid Microspheres 1.5 Ml Vial Diluted To 10 Ml Total Volume) 0 ml IV PUSH ONCE PRN; Protocol PRN Reason: adequate visualization Stop: 06/26/25 21:48 Rosuvastatin Calcium (Rosuvastatin 20 Mg Tablet) 20 mg PO QAM [facility] Last Admin: 06/24/25 08:00 Dose: 20 mg Ticagrelor (Ticagrelor 90 Mg Tablet) 90 mg PO Q12HR [facility] Last Admin: 06/24/25 08:00 Dose: 90 mg Sedation/Anesthesia: No previous sedation/anesthesia problems (including family history). 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 He has 2 children who are healthy. His Vera is his durable power back hand for healthcare. He desires to be a full code. He is a lifelong nonsmoker. He does not use any alcohol marijuana or illicit drugs. Smoking status: Never smoker Alcohol intake: never Drinks per week: 0 Substance use: never Substance use type: does not use Lack of Transportation: No Lack of Food: Never True Current Housing: I Have Housing Concerned About Future Housing: No Difficulty Paying Gas/Electric Bills: No Difficulty Paying for Meds: No Currently Unemployed: No Education: Associate Degree Difficulty w/ Childcare or Family Care: No Gender identity (if verbalized by the patient): Male Spiritual care concerns: No Mod Sed Physical Exam Physical Exam Pre Procedural Exam: Normal: Appearance, Eyes, Ears, Nose, Neck, Throat, Airway, Lungs, Heart Size, Heart Rate, Heart Rhythm, Neuro Exam, Abdomen, Liver, Kidneys, Spleen, Breasts, Genitalia, Extremities and Skin Hours since solid foods: 8 Hours since liquid intake: 8 Mallampati Classification: class 1 Internal Medicine - PN: Obj Da Vital Signs Vital Signs: Vital Signs - 24 hr 06/23/25 19:10 06/23/25 19:41 06/23/25 19:42 Temperature 36.8 C Pulse Rate 99 87 86 Respiratory Rate 22 H 20 Blood Pressure 195/125 H 180/111 H Pulse Oximetry 100 95 Oxygen Delivery 06/23/25 19:51 06/23/25 20:26 06/23/25 22:00 Temperature 36.8 C Pulse Rate 81 87 79 Respiratory Rate 20 Blood Pressure 180/111 H 180/111 H Pulse Oximetry 95 Oxygen Delivery 06/23/25 22:27 06/23/25 23:00 06/24/25 00:00 Temperature 36.8 C 36.8 C Pulse Rate 77 77 Respiratory Rate 20 20 Blood Pressure 160/99 H 157/101 H Pulse Oximetry 94 94 Oxygen Delivery Room Air 06/24/25 00:00 06/24/25 00:00 06/24/25 00:10 Temperature 37.1 C 37.1 C Pulse Rate 81 77 81 Respiratory Rate 20 20 Blood Pressure 150/103 H 150/103 H Pulse Oximetry 94 94 Oxygen Delivery 06/24/25 00:30 06/24/25 00:45 06/24/25 01:00 Temperature Pulse Rate 79 83 83 Respiratory Rate 20 20 20 Blood Pressure 154/102 H 157/112 H 157/112 H Pulse Oximetry 94 95 95 Oxygen Delivery 06/24/25 01:30 06/24/25 01:45 06/24/25 02:00 Temperature Pulse Rate 82 87 85 Respiratory Rate 20 18 Blood Pressure 157/112 H 157/111 H Pulse Oximetry 98 95 Oxygen Delivery 06/24/25 02:00 06/24/25 02:15 06/24/25 02:43 Temperature 36.6 C Pulse Rate 85 80 90 Respiratory Rate 18 20 20 Blood Pressure 157/111 H 156/103 H 162/106 H Pulse Oximetry 96 96 98 Oxygen Delivery 06/24/25 03:00 06/24/25 03:35 06/24/25 03:36 Temperature Pulse Rate 80 77 Respiratory Rate 20 18 Blood Pressure 163/104 H 163/104 H Pulse Oximetry 97 98 Oxygen Delivery Room Air 06/24/25 04:00 06/24/25 04:00 06/24/25 05:00 Temperature 36.6 C Pulse Rate 89 77 86 Respiratory Rate 25 H 15 Blood Pressure 158/103 H 167/106 H Pulse Oximetry 96 96 Oxygen Delivery 06/24/25 05:44 06/24/25 07:00 06/24/25 08:00 Temperature 36.3 C L 36.6 C Pulse Rate 85 90 89 Respiratory Rate 12 22 H Blood Pressure 150/105 H 176/119 H Pulse Oximetry 98 95 Oxygen Delivery 06/24/25 08:00 06/24/25 08:00 Temperature Pulse Rate 90 90 Respiratory Rate 22 H Blood Pressure Pulse Oximetry 95 Oxygen Delivery Room Air Intake/Output Intake/Output: Intake & Output 06/21/25 06/22/25 06/23/25 06/24/25 23:59 23:59 23:59 23:59 Intake Total 3.2 240 Output Total 1200 Balance 3.2 -960 Meds/Results Medications: Active Medications Generic Name Dose Route Start Last Admin Trade Name Freq PRN Reason Stop Dose Admin Acetaminophen 650 mg 06/24/25 01:10 06/24/25 08:00 Acetaminophen 325 Mg Tablet PO 650 mg Q4H PRN Administration Mild Pain (1-3) or Fever Aspirin 81 mg 06/24/25 08:00 06/24/25 07:59 Aspirin 81 Mg Chewable Tablet PO 81 mg DAILY@0800 [facility] Administration Dextrose 12.5 gm 06/23/25 22:43 Dextrose 50% 25 Gm/50 Ml Syringe IV PUSH PRN PRN Hypoglycemia Protocol Empagliflozin 25 mg 06/24/25 09:00 Empagliflozin 25 Mg Tablet PO DAILY [facility] Glucagon 1 mg 06/23/25 22:43 Glucagon For Inj 1 Mg Vial IM PRN PRN Hypoglycemia Protocol Glucose 15 gm 06/23/25 22:43 Glucose Oral Gel 15 Gm Of Glucse In 37.5 Gm Tube PO PRN PRN Hypoglycemia Protocol Dextrose 1,000 mls @ 100 mls/hr 06/23/25 22:43 Dextrose 5% 1,000 Ml IVPB PRN PRN Hypoglycemia Protocol Insulin Aspart 1 - 3 units 06/24/25 21:00 Insulin Aspart (*Bkc) 100 Units/Ml SUB-Q HS [facility] Protocol Insulin Aspart 3 - 6 units 06/24/25 12:00 Insulin Aspart (*Bkc) 100 Units/Ml SUB-Q TIDWM [facility] Protocol Lisinopril 5 mg 06/25/25 09:00 Lisinopril 5 Mg Tablet PO DAILY [facility] Metoprolol Succinate 25 mg 06/24/25 09:00 06/24/25 08:00 Metoprolol Succinate Ext Rel 25 Mg Tabcr PO 25 mg DAILY [facility] Administration Ondansetron HCl 4 mg 06/23/25 21:45 Ondansetron Inj 4 Mg/2 Ml Vial IV PUSH Q8H PRN Nausea And Vomiting Perflutren Lipid Microsphere 0 ml 06/23/25 21:48 Perflutren Lipid Microspheres 1.5 Ml Vial Diluted To 10 Ml Total Volume IV PUSH 06/26/25 21:48 ONCE PRN adequate visualization Protocol Rosuvastatin Calcium 20 mg 06/24/25 09:00 06/24/25 08:00 Rosuvastatin 20 Mg Tablet PO 20 mg QAM [facility] Administration Ticagrelor 90 mg 06/24/25 09:00 06/24/25 08:00 Ticagrelor 90 Mg Tablet PO 90 mg Q12HR [facility] Administration Radiology Results: ITS Impressions Chest X-Ray 06/23/25 19:50 IMPRESSION: No acute pulmonary findings. Labs 06/24/25 04:07 06/24/25 04:07 Labs: Laboratory Results - last 24 hr 06/23/25 06/23/25 06/23/25 19:12 19:13 19:32 WBC 10.9 H RBC 6.24 H Hgb 17.2 D Hct 53.4 H MCV 85.6 MCH 27.6 MCHC 32.2 RDW 16.7 H Plt Count 302 MPV 9.5 Immature Gran % (Auto) 0.5 Neut % (Auto) 57.6 Lymph % (Auto) 33.6 Davis % (Auto) 7.1 Eos % (Auto) 0.8 Baso % (Auto) 0.4 Lymph # (Auto) 3.67 H Davis # (Auto) 0.8 H Eos # (Auto) 0.1 Baso # (Auto) 0.0 Abs Immat Gran (auto) 0.05 H Absolute Neuts (auto) 6.3 Absolute Nucleated RBC 0.000 Nucleated RBC % 0.0 % Immature Plt Fraction Not Reportable PT 12.6 INR 0.9 APTT 26.1 Sodium 141 Potassium 4.5 Chloride 104 Carbon Dioxide 28 Anion Gap 9 BUN 6 L D Creatinine 1.27 Estim Creat Clear Calc 63 Estimated GFR 57 L Glucose 104 POC Capillary Glucose Hemoglobin A1c 7.3 H Calcium 9.9 Total Bilirubin 0.9 AST 38 ALT 35 Alkaline Phosphatase 173 H Troponin I 0.300 H* Total Protein 8.6 H Albumin 4.5 Triglycerides 196 H Cholesterol 235 H LDL Cholesterol Direct 142 HDL Direct 35 Lipase 48 06/23/25 06/24/25 06/24/25 23:34 04:07 05:51 WBC 11.6 H RBC 6.26 H Hgb 17.2 Hct 52.4 H MCV 83.7 MCH 27.5 MCHC 32.8 RDW 16.8 H Plt Count 277 MPV 9.0 Immature Gran % (Auto) Neut % (Auto) Lymph % (Auto) Davis % (Auto) Eos % (Auto) Baso % (Auto) Lymph # (Auto) Davis # (Auto) Eos # (Auto) Baso # (Auto) Abs Immat Gran (auto) Absolute Neuts (auto) Absolute Nucleated RBC Nucleated RBC % % Immature Plt Fraction PT INR APTT Sodium 136 L Potassium 3.9 Chloride 105 Carbon Dioxide 23 Anion Gap 8 BUN 5 L Creatinine 0.92 Estim Creat Clear Calc 85 Estimated GFR > 60 Glucose 55 L* POC Capillary Glucose 78 109 H Hemoglobin A1c Calcium 9.0 Total Bilirubin 0.8 AST 135 H ALT 39 Alkaline Phosphatase 160 H Troponin I Total Protein 7.2 Albumin 3.7 Triglycerides Cholesterol LDL Cholesterol Direct HDL Direct Lipase 06/24/25 08:35 WBC RBC Hgb Hct MCV MCH MCHC RDW Plt Count MPV Immature Gran % (Auto) Neut % (Auto) Lymph % (Auto) Davis % (Auto) Eos % (Auto) Baso % (Auto) Lymph # (Auto) Davis # (Auto) Eos # (Auto) Baso # (Auto) Abs Immat Gran (auto) Absolute Neuts (auto) Absolute Nucleated RBC Nucleated RBC % % Immature Plt Fraction PT INR APTT Sodium Potassium Chloride Carbon Dioxide Anion Gap BUN Creatinine Estim Creat Clear Calc Estimated GFR Glucose POC Capillary Glucose 111 H Hemoglobin A1c Calcium Total Bilirubin AST ALT Alkaline Phosphatase Troponin I Total Protein Albumin Triglycerides Cholesterol LDL Cholesterol Direct HDL Direct Lipase ASA Classification/Sedation ASA Classification/Sedation ASA Class: I Emergent: No Risks: Risks, benefits and alternatives explained and patient/family accepted plan for sedation. Patient re-evaluated immediately prior to sedation.
--- NOTE | 2025-06-24 10:01 | WPDHPUPDATE1 ---
History and Physical Update Update Date/Time: 06/24/25 10:01 History and Physical has been reviewed, including an updated exam of the patient. There are NO changes in the patient's condition. Risks, benefits, and alternatives have been discussed and questions answered. Patient agrees to proceed with procedure.
--- NOTE | 2025-06-24 10:01 | WPDCARDPROC ---
Cardiac Cath Procedure Note Date of procedure:: 06/24/25 Performing physician:: Amber Fuller MD Indication:: Chest pain Brief clinical history:: This 64-year-old patient history of diabetes, hypertension hyperlipidemia who presented last night with chest pain anterior ST-elevation and was found to have chronic total occlusion of the RCA stent and then received drug-eluting stent to high-grade stenosis then received drug-eluting stent to the ostial LAD into the left main. This morning he was having chest pain and EKG shows persistent ST elevation and therefore decided to bring him back to the mini lab operator for another look Procedure Procedure performed:: -moderate sedation that started at 9:11 a.m. and ended at 9:58 a.m. with total duration 47 minutes using 2 mg of Versed and 50 mcg of fentanyl. The registered nurse was santiago ravi. -attempted PCI mid to distal LAD with inability to pass balloon despite using smallest 1.5mm. Sedation/Medication given:: Moderate sedation as described above Access site:: Right common femoral artery Estimated blood loss:: 10 cc Procedure note:: -after informed consent patient was brought into the mini lab operator where he was draped and prepped in the usual manner. Moderate sedation was given the right groin was infiltrated with 1% lidocaine. 6 Dominican sheath was obtained using micropuncture needle and modified Seldinger technique. Right common femoral artery angiogram was done. Left main was engaged using 6 Dominican EBU 4 guide catheter after that fuel pilot engineer 150 wire was advanced and crossed the total occlusion the mid LAD. Then we attempted to pass 2 mm x 15 without success. It would not go beyond diagonal. I used a GuideLiner and despite that no help.. I did recross the lesion multiple times because I thought I might be in a dissection plane and despite that I could not pass the 2 mm balloon. I used 1.5 mm balloon inability to pass. I removed the Human Resources Executive Assistant 150 wire and used whisper wire and could not pass the 1.5 mm balloon. I did recross the lesion multiple times and was not able to succeed to pass the balloon. Most likely there is a dissection plane at the area of the occlusion that prevented me from passing the balloon. IMTIAZ flow 0 before intervention and 2 after intervention. Findings:: -patent stent in the left main into the LAD. -occluded mid to distal LAD beyond diagonal branch. -patent stent in the left circumflex artery. -opening arterial pressure 160/88 and closing pressure 130 over 80. -right common femoral artery angiogram shows no significant disease in the right common femoral artery. Conclusion:: -inability to restore flow to the distal LAD despite multiple attempts. Assessment and Plan Assessment and plan (1) ST elevation (STEMI) myocardial infarction: Code(s): I21.3 - ST elevation (STEMI) myocardial infarction of unspecified site Status: Acute Plan -continue aspirin and Brilinta -risk factor modification for CAD.
--- NOTE | 2025-06-24 10:08 | P.PNCA_ITS ---
Progress Note: A&P Assessment and Plan (1) ST elevation (STEMI) myocardial infarction: Code(s): I21.3 - ST elevation (STEMI) myocardial infarction of unspecified site Status: Acute Plan -anterior ST-elevation -diabetes -hypertension -in regards to anterior ST elevation, underwent cardiac catheterization yesterday and received a stent to the OM then stent of the ostial LAD into the left main. However this morning patient is having persistent chest pain. EKG shows persistent ST elevation. Due to persistent chest pain and ST elevation in I decided to bring the patient back to the [employer]. Risks and benefits of cardiac catheterization discussed with the patient agrees to proceed. Will proceed urgently. Continue aspirin and Brilinta for now and high-intensity statin. -regards to hypertension controlled. Continue lisinopril. -regards to hyperlipidemia continue rosuvastatin. Subjective Date/time seen: Date of service 06/24/25 10:08 Interval history: Date of service 06/24/2025-patient still having chest pain 08/05. EKG shows persistent ST elevation anterior leads. Review of Systems Constitutional: Constitutional: Denies chills, Denies fever(s) and Denies poor appetite Eyes: Eyes: Denies eye discharge, Denies loss of vision and Denies eye pain ENT: Denies dizziness, Denies epistaxis, Denies nasal congestion and Denies sore throat Cardiovascular: Cardiovascular: Reports chest pain, Denies syncope, Denies pedal edema, Denies leg edema, Denies palpitations, Denies dyspnea, Denies dyspnea on exertion and Denies orthopnea Respiratory: Respiratory: Denies cough, Denies dyspnea, Denies dyspnea on exertion and Denies wheezing Gastrointestinal: Gastrointestinal: Denies abdominal pain, Denies diarrhea, Denies nausea and Denies vomiting Genitourinary: Genitourinary: Denies hematuria, Denies genital lesions and Denies dysuria Musculoskeletal: Musculoskeletal: Denies arthralgias, Denies joint swelling and Denies numbness Integumentary/Breasts: Skin/Breast: Denies pruritus and Denies rash Neurologic: Denies dizziness, Denies syncope, Denies loss of vision and Denies numbness Psychiatric: Psychiatric: Denies anxiety and Denies depression Endocrine: Endocrine: Denies cold intolerance, Denies heat intolerance and Denies palpitations Hematologic/Lymphatic: Hematologic/Lymphatic: Denies easy bleeding and Denies easy bruising Allergic/Immunologic: Allergic/Immunologic: Denies urticaria and Denies wheezing Exam Const: General: cooperative, comfortable, no acute distress, alert, awake and well nourished Nutritional Appearance: well nourished Orientation/consciousness: patient oriented x3 HENMT: Head: normal to inspection, normocephalic and atraumatic Ears: hearing grossly normal bilaterally Face/Nose/Sinus: Normal external nose present, Normal nares present, no nasal discharge noted, normal facial exam and No erythema Face and sinus: normal facial exam and no erythema Mouth: No drooling and No restricted motion Throat: uvula midline Eyes: General: appearance normal, both eyes and all related structures Alignment and Position: position normal Conjunctivae: conjunctivae normal Sclera: sclerae normal Direct Ophthalmoscopy: No photophobia Neck: Neck: normal visual inspection and no JVD Thyroid: thyroid normal Carotids: no bruits Lymphatic: lymphedema not noted Chest: Chest palpation & inspection: normal inspection of the chest and no tenderness Resp: Effort & Inspection: normal respiratory effort and no nasal flaring Auscultation: clear to auscultation bilaterally, no crackles, no rales and no wheezes Cardio: Jugular venous distension: no JVD Rate: regular rate Rhythm: regular rhythm Heart sounds: S1 normal heart sound present, S2 normal heart sound present, no gallops, no murmurs and no rubs GI: Inspection: non-distended GI Palp: No abdominal tenderness and No Soft to palpation Auscultation: normal bowel sounds Rectal Exam: deferred : General: No no CVA tenderness Back/Spine/Pelvis: Back: No no CVA tenderness Cervical Spine: cervical ROM normal Skin: General skin exam: normal color and rashes and/or lesions noted Neuro: General: patient oriented x3 Cranial nerves: No CN's II-XII intact bilaterally Speech: normal speech Motor exam (neuro): no tremors Extrem: General: normal to inspection and pedal edema present Psych: Appearance: grossly normal and well kempt Speech and movement: Normal speech and movement present Affect: normal affect Objective Data Vital Signs Vital Signs: Vital Signs - 24 hr 06/23/25 19:10 06/23/25 19:41 06/23/25 19:42 Temperature 36.8 C Pulse Rate 99 87 86 Respiratory Rate 22 H 20 Blood Pressure 195/125 H 180/111 H Pulse Oximetry 100 95 Oxygen Delivery 06/23/25 19:51 06/23/25 20:26 06/23/25 22:00 Temperature 36.8 C Pulse Rate 81 87 79 Respiratory Rate 20 Blood Pressure 180/111 H 180/111 H Pulse Oximetry 95 Oxygen Delivery 06/23/25 22:27 06/23/25 23:00 06/24/25 00:00 Temperature 36.8 C 36.8 C Pulse Rate 77 77 Respiratory Rate 20 20 Blood Pressure 160/99 H 157/101 H Pulse Oximetry 94 94 Oxygen Delivery Room Air 06/24/25 00:00 06/24/25 00:00 06/24/25 00:10 Temperature 37.1 C 37.1 C Pulse Rate 81 77 81 Respiratory Rate 20 20 Blood Pressure 150/103 H 150/103 H Pulse Oximetry 94 94 Oxygen Delivery 06/24/25 00:30 06/24/25 00:45 06/24/25 01:00 Temperature Pulse Rate 79 83 83 Respiratory Rate 20 20 20 Blood Pressure 154/102 H 157/112 H 157/112 H Pulse Oximetry 94 95 95 Oxygen Delivery 06/24/25 01:30 06/24/25 01:45 06/24/25 02:00 Temperature Pulse Rate 82 87 85 Respiratory Rate 20 18 Blood Pressure 157/112 H 157/111 H Pulse Oximetry 98 95 Oxygen Delivery 06/24/25 02:00 06/24/25 02:15 06/24/25 02:43 Temperature 36.6 C Pulse Rate 85 80 90 Respiratory Rate 18 20 20 Blood Pressure 157/111 H 156/103 H 162/106 H Pulse Oximetry 96 96 98 Oxygen Delivery 06/24/25 03:00 06/24/25 03:35 06/24/25 03:36 Temperature Pulse Rate 80 77 Respiratory Rate 20 18 Blood Pressure 163/104 H 163/104 H Pulse Oximetry 97 98 Oxygen Delivery Room Air 06/24/25 04:00 06/24/25 04:00 06/24/25 05:00 Temperature 36.6 C Pulse Rate 89 77 86 Respiratory Rate 25 H 15 Blood Pressure 158/103 H 167/106 H Pulse Oximetry 96 96 Oxygen Delivery 06/24/25 05:44 06/24/25 07:00 06/24/25 08:00 Temperature 36.3 C L 36.6 C Pulse Rate 85 90 89 Respiratory Rate 12 22 H Blood Pressure 150/105 H 176/119 H Pulse Oximetry 98 95 Oxygen Delivery 06/24/25 08:00 06/24/25 08:00 Temperature Pulse Rate 90 90 Respiratory Rate 22 H Blood Pressure Pulse Oximetry 95 Oxygen Delivery Room Air Intake/Output Intake/Output: Intake & Output 06/21/25 06/22/25 06/23/25 06/24/25 23:59 23:59 23:59 23:59 Intake Total 3.2 240 Output Total 1200 Balance 3.2 -960 Meds/Results Medications: Active Medications Generic Name Dose Route Start Last Admin Trade Name Freq PRN Reason Stop Dose Admin Acetaminophen 650 mg 06/24/25 01:10 06/24/25 08:00 Acetaminophen 325 Mg Tablet PO 650 mg Q4H PRN Administration Mild Pain (1-3) or Fever Aspirin 81 mg 06/24/25 08:00 06/24/25 07:59 Aspirin 81 Mg Chewable Tablet PO 81 mg DAILY@0800 BAHMAN Administration Dextrose 12.5 gm 06/23/25 22:43 Dextrose 50% 25 Gm/50 Ml Syringe IV PUSH PRN PRN Hypoglycemia Protocol Empagliflozin 25 mg 06/24/25 09:00 Empagliflozin 25 Mg Tablet PO DAILY BAHMAN Glucagon 1 mg 06/23/25 22:43 Glucagon For Inj 1 Mg Vial IM PRN PRN Hypoglycemia Protocol Glucose 15 gm 06/23/25 22:43 Glucose Oral Gel 15 Gm Of Glucse In 37.5 Gm Tube PO PRN PRN Hypoglycemia Protocol Dextrose 1,000 mls @ 100 mls/hr 06/23/25 22:43 Dextrose 5% 1,000 Ml IVPB PRN PRN Hypoglycemia Protocol Insulin Aspart 1 - 3 units 06/24/25 21:00 Insulin Aspart (*Bkc) 100 Units/Ml SUB-Q HS [facility] Protocol Insulin Aspart 3 - 6 units 06/24/25 12:00 Insulin Aspart (*Bkc) 100 Units/Ml SUB-Q TIDWM [facility] Protocol Lisinopril 5 mg 06/25/25 09:00 Lisinopril 5 Mg Tablet PO DAILY BAHMAN Metoprolol Succinate 25 mg 06/24/25 09:00 06/24/25 08:00 Metoprolol Succinate Ext Rel 25 Mg Tabcr PO 25 mg DAILY BAHMAN Administration Ondansetron HCl 4 mg 06/23/25 21:45 Ondansetron Inj 4 Mg/2 Ml Vial IV PUSH Q8H PRN Nausea And Vomiting Perflutren Lipid Microsphere 0 ml 06/23/25 21:48 Perflutren Lipid Microspheres 1.5 Ml Vial Diluted To 10 Ml Total Volume IV PUSH 06/26/25 21:48 ONCE PRN adequate visualization Protocol Rosuvastatin Calcium 20 mg 06/24/25 09:00 06/24/25 08:00 Rosuvastatin 20 Mg Tablet PO 20 mg QAM BAHMAN Administration Ticagrelor 90 mg 06/24/25 09:00 06/24/25 08:00 Ticagrelor 90 Mg Tablet PO 90 mg Q12HR BAHMAN Administration Radiology Results: ITS Impressions Chest X-Ray 06/23/25 19:50 IMPRESSION: No acute pulmonary findings. Labs Labs: Laboratory Results - last 24 hr 06/23/25 06/23/25 06/23/25 19:12 19:13 19:32 WBC 10.9 H RBC 6.24 H Hgb 17.2 D Hct 53.4 H MCV 85.6 MCH 27.6 MCHC 32.2 RDW 16.7 H Plt Count 302 MPV 9.5 Immature Gran % (Auto) 0.5 Neut % (Auto) 57.6 Lymph % (Auto) 33.6 Morrill % (Auto) 7.1 Eos % (Auto) 0.8 Baso % (Auto) 0.4 Lymph # (Auto) 3.67 H Morrill # (Auto) 0.8 H Eos # (Auto) 0.1 Baso # (Auto) 0.0 Abs Immat Gran (auto) 0.05 H Absolute Neuts (auto) 6.3 Absolute Nucleated RBC 0.000 Nucleated RBC % 0.0 % Immature Plt Fraction Not Reportable PT 12.6 INR 0.9 APTT 26.1 Sodium 141 Potassium 4.5 Chloride 104 Carbon Dioxide 28 Anion Gap 9 BUN 6 L D Creatinine 1.27 Estim Creat Clear Calc 63 Estimated GFR 57 L Glucose 104 POC Capillary Glucose Hemoglobin A1c 7.3 H Calcium 9.9 Total Bilirubin 0.9 AST 38 ALT 35 Alkaline Phosphatase 173 H Troponin I 0.300 H* Total Protein 8.6 H Albumin 4.5 Triglycerides 196 H Cholesterol 235 H LDL Cholesterol Direct 142 HDL Direct 35 Lipase 48 06/23/25 06/24/25 06/24/25 23:34 04:07 05:51 WBC 11.6 H RBC 6.26 H Hgb 17.2 Hct 52.4 H MCV 83.7 MCH 27.5 MCHC 32.8 RDW 16.8 H Plt Count 277 MPV 9.0 Immature Gran % (Auto) Neut % (Auto) Lymph % (Auto) Morrill % (Auto) Eos % (Auto) Baso % (Auto) Lymph # (Auto) Morrill # (Auto) Eos # (Auto) Baso # (Auto) Abs Immat Gran (auto) Absolute Neuts (auto) Absolute Nucleated RBC Nucleated RBC % % Immature Plt Fraction PT INR APTT Sodium 136 L Potassium 3.9 Chloride 105 Carbon Dioxide 23 Anion Gap 8 BUN 5 L Creatinine 0.92 Estim Creat Clear Calc 85 Estimated GFR > 60 Glucose 55 L* POC Capillary Glucose 78 109 H Hemoglobin A1c Calcium 9.0 Total Bilirubin 0.8 AST 135 H ALT 39 Alkaline Phosphatase 160 H Troponin I Total Protein 7.2 Albumin 3.7 Triglycerides Cholesterol LDL Cholesterol Direct HDL Direct Lipase 06/24/25 08:35 WBC RBC Hgb Hct MCV MCH MCHC RDW Plt Count MPV Immature Gran % (Auto) Neut % (Auto) Lymph % (Auto) Morrill % (Auto) Eos % (Auto) Baso % (Auto) Lymph # (Auto) Morrill # (Auto) Eos # (Auto) Baso # (Auto) Abs Immat Gran (auto) Absolute Neuts (auto) Absolute Nucleated RBC Nucleated RBC % % Immature Plt Fraction PT INR APTT Sodium Potassium Chloride Carbon Dioxide Anion Gap BUN Creatinine Estim Creat Clear Calc Estimated GFR Glucose POC Capillary Glucose 111 H Hemoglobin A1c Calcium Total Bilirubin AST ALT Alkaline Phosphatase Troponin I Total Protein Albumin Triglycerides Cholesterol LDL Cholesterol Direct HDL Direct Lipase
[2025-06-24] MEDS: ONDANSETRON INJ 4 MG/2 ML VIAL IV PUSH (10:53)
--- NOTE | 2025-06-24 11:02 | WPDCNINT2 ---
Assessment and Plan Assessment and plan (1) ST elevation (STEMI) myocardial infarction: Code(s): I21.3 - ST elevation (STEMI) myocardial infarction of unspecified site Status: Acute Assessment and Plan: Patient with coronary disease who had a PCI in the past presented with new onset chest pain. Diagnosed with STEMI Had a cardiac catheterization on last night and had 2 stents placed in LAD and left circumflex Patient still having 2/10 chest pain Discussed with show host/hostess and he feels that there may be another area that could be intervened in LAD and he is planning to take patient back to cardiac catheterization lab for repeat procedure Continue aspirin Brilinta Lisinopril beta-neal and statin Resume Jardiance Check echocardiogram (2) Hypertension: Code(s): I10 - Essential (primary) hypertension Status: Chronic Assessment and Plan: Continue metoprolol and lisinopril. Lisinopril dose increased to 5 Add p.r.n. labetalol (3) Hyperlipidemia: Code(s): E78.5 - Hyperlipidemia, unspecified Status: Chronic Assessment and Plan: Continue statin (4) Diabetes mellitus type 2 with complications, uncontrolled: Code(s): E11.8 - Type 2 diabetes mellitus with unspecified complications; E11.65 - Type 2 diabetes mellitus with hyperglycemia Status: Acute Assessment and Plan: Sliding scale insulin Resume Lantus but at a lower dose Adjust accordingly Plan DVT prophylaxis -will start Lovenox from tomorrow as patient has received anticoagulation with procedures Nutrition -consistent carbohydrate diet Code Status - Full Code Total Critical Care Time - 30 minutes Due to a high probability of clinically significant, life threatening deterioration, the patient required my highest level of preparedness to intervene emergently and I personally spent this critical care time directly and personally managing the patient. This critical care time included obtaining a history; examining the patient; pulse oximetry; ordering and review of studies; arranging urgent treatment with development of a management plan; evaluation of patient's response to treatment; frequent reassessment; and discussions with other providers. It was exclusive of separately billable procedures and treating other patients and teaching time. Please see Assessment and Plan section and the rest of the note for further information on patient assessment and treatment Senior Communications Specialist Consult Note Consult date: 06/24/25 Reason for consult: STEMI HPI: Richie Walden is a 64 year old male past medical history of coronary disease status post PCI in the past, diabetes, hyperlipidemia, hypertension who presented to ER last night with chief complaint of chest pain that started early in the morning when he went to work. Pain was in the middle of the chest 8/10, felt like indigestion, radiated to left arm and neck, no associated shortness of breath nausea vomiting palpitations loss of consciousness dizziness or lightheadedness. Patient continued to work and then presented the evening to ER. Patient was found to be having ST segment elevation [place]. Patient was taken to cardiac catheterization lab he underwent cardiac catheterization and had 2 stents placed in left circumflex and LAD. Patient postprocedure admitted to ICU for further evaluation management This morning when I evaluated the patient he states his pain was significantly improved but still present and rated at 2/10. He denies any other complaints. All the systems were reviewed and were negative. 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 He has 2 children who are healthy. His Vera is his durable power district attorney for healthcare. He desires to be a full code. He is a lifelong nonsmoker. He does not use any alcohol marijuana or illicit drugs. Smoking status: Never smoker Alcohol intake: never Drinks per week: 0 Substance use: never Substance use type: does not use Lack of Transportation: No Lack of Food: Never True Current Housing: I Have Housing Concerned About Future Housing: No Difficulty Paying Gas/Electric Bills: No Difficulty Paying for Meds: No Currently Unemployed: No Education: Associate Degree Difficulty w/ Childcare or Family Care: No Gender identity (if verbalized by the patient): Male Spiritual care concerns: No Meds Home Medications and Allergies Home Medications ?Medication ?Instructions ?Recorded ?Confirmed ?Type aspirin 325 mg tablet 325 mg PO DAILY 03/19/20 06/23/25 History rosuvastatin 20 mg tablet 20 mg PO DAILY 03/19/20 06/23/25 History lisinopril 2.5 mg tablet 5 mg (2 x 2.5 mg) PO DAILY #0 tabs 03/24/20 06/23/25 Rx empagliflozin 25 mg tablet 25 mg PO DAILY 06/23/25 06/23/25 History (Jardiance) insulin degludec 100 unit/mL (3 75 unit subcut QAM 06/23/25 06/24/25 History mL) subcutaneous pen (Tresiba FlexTouch U-100 insulin) metoprolol succinate 50 mg 50 mg PO .Q12HR 06/23/25 06/23/25 History tablet,extended release 24 hr tirzepatide 7.5 mg/0.5 mL 7.5 mg subcut WEEKLY 06/23/25 06/23/25 History subcutaneous pen injector (Kaden) Allergies Allergy/AdvReac Type Severity Reaction Status Date / Time No Known Allergies Allergy Verified 06/23/25 23:19 Vital Signs Vital Signs - 24 hr 06/23/25 19:10 06/23/25 19:41 06/23/25 19:42 Temperature 36.8 C Pulse Rate 99 87 86 Pulse Rate [Right Radial] Respiratory Rate 22 H 20 Blood Pressure 195/125 H 180/111 H Pulse Oximetry 100 95 Oxygen Delivery 06/23/25 19:51 06/23/25 20:26 06/23/25 22:00 Temperature 36.8 C Pulse Rate 81 87 79 Pulse Rate [Right Radial] Respiratory Rate 20 Blood Pressure 180/111 H 180/111 H Pulse Oximetry 95 Oxygen Delivery 06/23/25 22:27 06/23/25 23:00 06/24/25 00:00 Temperature 36.8 C 36.8 C Pulse Rate 77 77 Pulse Rate [Right Radial] Respiratory Rate 20 20 Blood Pressure 160/99 H 157/101 H Pulse Oximetry 94 94 Oxygen Delivery Room Air 06/24/25 00:00 06/24/25 00:00 06/24/25 00:10 Temperature 37.1 C 37.1 C Pulse Rate 81 77 81 Pulse Rate [Right Radial] Respiratory Rate 20 20 Blood Pressure 150/103 H 150/103 H Pulse Oximetry 94 94 Oxygen Delivery 06/24/25 00:30 06/24/25 00:45 06/24/25 01:00 Temperature Pulse Rate 79 83 83 Pulse Rate [Right Radial] Respiratory Rate 20 20 20 Blood Pressure 154/102 H 157/112 H 157/112 H Pulse Oximetry 94 95 95 Oxygen Delivery 06/24/25 01:30 06/24/25 01:45 06/24/25 02:00 Temperature Pulse Rate 82 87 85 Pulse Rate [Right Radial] Respiratory Rate 20 18 Blood Pressure 157/112 H 157/111 H Pulse Oximetry 98 95 Oxygen Delivery 06/24/25 02:00 06/24/25 02:15 06/24/25 02:43 Temperature 36.6 C Pulse Rate 85 80 90 Pulse Rate [Right Radial] Respiratory Rate 18 20 20 Blood Pressure 157/111 H 156/103 H 162/106 H Pulse Oximetry 96 96 98 Oxygen Delivery 06/24/25 03:00 06/24/25 03:35 06/24/25 03:36 Temperature Pulse Rate 80 77 Pulse Rate [Right Radial] Respiratory Rate 20 18 Blood Pressure 163/104 H 163/104 H Pulse Oximetry 97 98 Oxygen Delivery Room Air 06/24/25 04:00 06/24/25 04:00 06/24/25 05:00 Temperature 36.6 C Pulse Rate 89 77 86 Pulse Rate [Right Radial] Respiratory Rate 25 H 15 Blood Pressure 158/103 H 167/106 H Pulse Oximetry 96 96 Oxygen Delivery 06/24/25 05:44 06/24/25 07:00 06/24/25 08:00 Temperature 36.3 C L 36.6 C Pulse Rate 85 90 89 Pulse Rate [Right Radial] Respiratory Rate 12 22 H Blood Pressure 150/105 H 176/119 H Pulse Oximetry 98 95 Oxygen Delivery 06/24/25 08:00 06/24/25 08:00 06/24/25 10:21 Temperature Pulse Rate 90 90 91 Pulse Rate [Right Radial] Respiratory Rate 22 H 20 Blood Pressure 167/110 H Pulse Oximetry 95 96 Oxygen Delivery Room Air Room Air 06/24/25 10:21 06/24/25 10:30 06/24/25 10:30 Temperature Pulse Rate 86 Pulse Rate [Right Radial] 91 86 Respiratory Rate 12 Blood Pressure 158/107 H Pulse Oximetry 97 Oxygen Delivery Room Air 06/24/25 10:45 06/24/25 10:45 06/24/25 11:00 Temperature Pulse Rate 89 84 Pulse Rate [Right Radial] 89 Respiratory Rate 13 12 Blood Pressure 163/112 H 159/110 H Pulse Oximetry 97 98 Oxygen Delivery Room Air Room Air 06/24/25 11:00 Temperature Pulse Rate Pulse Rate [Right Radial] 84 Respiratory Rate Blood Pressure Pulse Oximetry Oxygen Delivery Exam Narrative: General: Pt is alert awake and in NAD Lungs/Chest: Trachea central Clear BS B/L, No crackles or wheezing. Cardiac: RRR. Normal S1 S2. No murmurs Circulation: Pedal pulses are intact and symmetrical. Abdomen: Normal bowel sounds.. Soft. NT. ND. Extremities: No clubbing, cyanosis or edema. Warm right hand shows normal capillary refill, radial pulses palpable : Shen in place Neurologic: Follows commands. Moves all 4 extremities PERRL Skin: No Rash Results Labs 06/24/25 04:07 06/24/25 04:07 Labs: Impressions Chest X-Ray 06/23/25 19:50 IMPRESSION: No acute pulmonary findings. Short CBC 06/23/25 06/24/25 Range/Units 19:32 04:07 WBC 10.9 H 11.6 H (4.5-10.0) K/mm3 Hgb 17.2 D 17.2 (14.0-18.0) g/dL Hct 53.4 H 52.4 H (42.0-52.0) % Plt Count 302 277 (150-375) k/mm3 BMP 06/23/25 06/24/25 19:13 04:07 Sodium 141 136 L Potassium 4.5 3.9 Chloride 104 105 Carbon Dioxide 28 23 BUN 6 L D 5 L Creatinine 1.27 0.92 Glucose 104 55 L* Calcium 9.9 9.0 Cardiac Enzymes 06/23/25 Range/Units 19:13 Troponin I 0.300 H* (0.000-0.034) ng/mL Liver Function 06/23/25 06/24/25 Range/Units 19:13 04:07 Total Bilirubin 0.9 0.8 (0.2-1.3) mg/dL AST 38 135 H (17-59) U/L ALT 35 39 (6-50) U/L Alkaline Phosphatase 173 H 160 H (38-126) U/L Albumin 4.5 3.7 (3.5-5.1) g/dL Quality VTE Prophylaxis VTE prophylaxis: pharmacologic ordered
[2025-06-24] MEDS: PERFLUTREN LIPID MICROSPHERES 1.5 ML VIAL DILUTED TO 10 ML TOTAL VOLUME IV PUSH (16:30)
--- NOTE | 2025-06-24 16:53 | IVDEFINITY ---
Prior to administration of IV Definity the patient was educated on the risks and benefits of the imaging enhancing agent including potential adverse side effects. The patient verbalized understanding. Allergies were verified. No exclusion criteria were identified and at least one of the following inclusion criteria were met: 1) physician request, 2) patient technically difficult to image (per the [place] [employer]chocardi[employer] guidelines of two or more segments not discernable within the apical view), or 3) questionable left ventricular function. ?
--- NOTE | 2025-06-24 16:55 | PC.NURSE ---
[id number]-Taken to biological lab technician per bed.
[2025-06-24] MEDS: INSULIN GLARGINE (*BKC) 100 UNITS/ML 40 UNITS SUB-Q (20:44)
[2025-06-24] MEDS: INSULIN ASPART (*BKC) 100 UNITS/ML SUB-Q (20:45)
[2025-06-25] VITALS (18 sets, daily range): BP systolic 95–127; BP diastolic 62–84; PULSE 83–104; RESP 10–20; TEMP 36.5–36.9; O2SAT 95–99
--- NOTE | 2025-06-25 07:49 | PM.PNCARD ---
Progress Note: A&P Assessment and Plan (1) ST elevation (STEMI) myocardial infarction: Code(s): I21.3 - ST elevation (STEMI) myocardial infarction of unspecified site Status: Acute Plan -anterior ST-elevation -ischemic cardiomyopathy. -diabetes -hypertension -in regards to anterior ST elevation, underwent cardiac catheterization yesterday and received a stent to the OM then stent of the ostial LAD into the left main. However this morning patient is having persistent chest pain. EKG shows persistent ST elevation. Due to persistent chest pain and ST elevation in I decided to bring the patient back to the assistant laboratory director. We went back to the assistant laboratory director and try to open distal LAD with inability to pass balloon. Continue aspirin, Brilinta and statin. -regards to ischemic cardiomyopathy, continue lisinopril. Will start patient on metoprolol 25 mg b.i.d.. At home he used to take Toprol XL 50 mg daily. Arrange for LifeVest prior to discharge. -regards to hypertension controlled. Continue lisinopril, metoprolol -regards to hyperlipidemia continue rosuvastatin. Subjective Date/time seen: Date of service 06/25/25 07:49 Interval history: Date of service 06/24/2025-patient still having chest pain 08/05. EKG shows persistent ST elevation anterior leads. Date of service 06/25/2025-denies chest pain, shortness of breath. Patient feels great today. No arrhythmias on telemetry. He wants to go home. Groin site without hematoma. Review of Systems Review of Systems: All systems reviewed & are unremarkable except as noted in HPI and below Constitutional: Constitutional: Denies chills, Denies fever(s) and Denies poor appetite Eyes: Eyes: Denies eye discharge, Denies loss of vision, Denies eye pain and Denies photophobia ENT: Denies dizziness, Denies epistaxis, Denies nasal congestion and Denies sore throat Cardiovascular: Cardiovascular: Reports chest pain, Denies syncope, Denies pedal edema, Denies leg edema, Denies palpitations, Denies dyspnea, Denies dyspnea on exertion and Denies orthopnea Respiratory: Respiratory: Denies cough, Denies dyspnea, Denies dyspnea on exertion and Denies wheezing Gastrointestinal: Gastrointestinal: Denies abdominal pain, Denies diarrhea, Denies nausea and Denies vomiting Genitourinary: Genitourinary: Denies hematuria, Denies genital lesions and Denies dysuria Musculoskeletal: Musculoskeletal: Denies arthralgias, Denies joint swelling and Denies numbness Integumentary/Breasts: Skin/Breast: Denies pruritus and Denies rash Neurologic: Denies dizziness, Denies syncope, Denies loss of vision and Denies numbness Psychiatric: Psychiatric: Denies anxiety and Denies depression Endocrine: Endocrine: Denies cold intolerance, Denies heat intolerance and Denies palpitations Hematologic/Lymphatic: Hematologic/Lymphatic: Denies easy bleeding and Denies easy bruising Allergic/Immunologic: Allergic/Immunologic: Denies urticaria and Denies wheezing Exam Narrative: GENERAL: Well-appearing, well-nourished, and in no acute distress. HEAD: Normocephalic, atraumatic. ENT: Mucous membranes moist. CHEST: Clear to auscultation. No respiratory distress. HEART: Regular rate and rhythm. Normal peripheral pulses. ABDOMEN: Soft, nontender, nondistended. EXTREMITIES: Normal range of motion. No edema. SKIN: Warm, dry, no rash. NEURO: Alert and oriented x3. PSYCH: Normal mood and affect. Const: General: cooperative, comfortable, no acute distress, alert, awake and well nourished Nutritional Appearance: well nourished Orientation/consciousness: patient oriented x3 HENMT: Head: normal to inspection, normocephalic and atraumatic Ears: hearing grossly normal bilaterally Face/Nose/Sinus: Normal external nose present, Normal nares present, no nasal discharge noted, normal facial exam and No erythema Face and sinus: normal facial exam and no erythema Mouth: No drooling and No restricted motion Throat: uvula midline Eyes: General: appearance normal, both eyes and all related structures Alignment and Position: position normal Conjunctivae: conjunctivae normal Sclera: sclerae normal Direct Ophthalmoscopy: No photophobia Neck: Neck: normal visual inspection and no JVD Thyroid: thyroid normal Carotids: no bruits Lymphatic: lymphedema not noted Chest: Chest palpation & inspection: normal inspection of the chest and no tenderness Resp: Effort & Inspection: normal respiratory effort and no nasal flaring Auscultation: clear to auscultation bilaterally, no crackles, no rales and no wheezes Cardio: Jugular venous distension: no JVD Rate: regular rate Rhythm: regular rhythm Heart sounds: S1 normal heart sound present, S2 normal heart sound present, no gallops, no murmurs and no rubs GI: Inspection: non-distended Auscultation: normal bowel sounds Rectal Exam: deferred : General: No no CVA tenderness Back/Spine/Pelvis: Back: No no CVA tenderness Cervical Spine: cervical ROM normal Skin: General skin exam: normal color and rashes and/or lesions noted Neuro: General: patient oriented x3 Cranial nerves: No CN's II-XII intact bilaterally Speech: normal speech Motor exam (neuro): no tremors Extrem: General: normal to inspection and pedal edema present Psych: Appearance: grossly normal and well kempt Speech and movement: Normal speech and movement present Affect: normal affect Objective Data Vital Signs Vital Signs: Vital Signs - 24 hr 06/24/25 08:00 06/24/25 08:00 06/24/25 08:00 Temperature Pulse Rate 89 90 90 Pulse Rate [Right Radial] Respiratory Rate 22 H Blood Pressure Pulse Oximetry 95 Oxygen Delivery Room Air 06/24/25 10:21 06/24/25 10:21 06/24/25 10:30 Temperature Pulse Rate 91 86 Pulse Rate [Right Radial] 91 Respiratory Rate 20 12 Blood Pressure 167/110 H 158/107 H Pulse Oximetry 96 97 Oxygen Delivery Room Air Room Air 06/24/25 10:30 06/24/25 10:45 06/24/25 10:45 Temperature Pulse Rate 89 Pulse Rate [Right Radial] 86 89 Respiratory Rate 13 Blood Pressure 163/112 H Pulse Oximetry 97 Oxygen Delivery Room Air 06/24/25 11:00 06/24/25 11:00 06/24/25 11:30 Temperature Pulse Rate 84 93 Pulse Rate [Right Radial] 84 Respiratory Rate 12 14 Blood Pressure 159/110 H 160/111 H Pulse Oximetry 98 97 Oxygen Delivery Room Air Room Air 06/24/25 11:30 06/24/25 12:00 06/24/25 12:00 Temperature Pulse Rate 93 92 Pulse Rate [Right Radial] 93 Respiratory Rate 14 Blood Pressure Pulse Oximetry 97 Oxygen Delivery Room Air 06/24/25 12:00 06/24/25 12:59 06/24/25 13:00 Temperature 36.6 C Pulse Rate 92 96 94 Pulse Rate [Right Radial] Respiratory Rate 18 18 Blood Pressure 156/96 H 136/93 H Pulse Oximetry 98 96 Oxygen Delivery 06/24/25 14:00 06/24/25 14:00 06/24/25 15:00 Temperature 36.4 C L Pulse Rate 94 95 107 H Pulse Rate [Right Radial] Respiratory Rate 17 18 Blood Pressure 154/99 H 139/101 H Pulse Oximetry 98 98 Oxygen Delivery 06/24/25 16:00 06/24/25 16:00 06/24/25 16:00 Temperature 36.4 C L Pulse Rate 97 97 97 Pulse Rate [Right Radial] Respiratory Rate 27 H 27 H Blood Pressure 137/92 H Pulse Oximetry 98 98 Oxygen Delivery Room Air 06/24/25 17:00 06/24/25 18:00 06/24/25 18:00 Temperature 36.6 C Pulse Rate 94 94 97 Pulse Rate [Right Radial] Respiratory Rate 24 H 24 H Blood Pressure 132/98 H 138/94 H Pulse Oximetry 98 98 Oxygen Delivery 06/24/25 19:00 06/24/25 20:00 06/24/25 20:00 Temperature 36.6 C Pulse Rate 84 91 Pulse Rate [Right Radial] Respiratory Rate 20 20 Blood Pressure 117/73 117/73 Pulse Oximetry 96 96 95 Oxygen Delivery Room Air 06/24/25 20:00 06/24/25 20:44 06/24/25 21:00 Temperature 36.6 C Pulse Rate 87 100 92 Pulse Rate [Right Radial] Respiratory Rate 20 Blood Pressure 120/96 H Pulse Oximetry 96 Oxygen Delivery 06/24/25 22:00 06/24/25 22:00 06/24/25 23:00 Temperature Pulse Rate 87 87 97 Pulse Rate [Right Radial] Respiratory Rate 20 20 Blood Pressure 131/84 131/84 Pulse Oximetry 98 98 Oxygen Delivery 06/25/25 00:00 06/25/25 00:00 06/25/25 00:00 Temperature 36.6 C Pulse Rate 93 95 Pulse Rate [Right Radial] Respiratory Rate 18 Blood Pressure 97/67 L Pulse Oximetry 96 95 Oxygen Delivery Room Air 06/25/25 01:00 06/25/25 02:00 06/25/25 03:00 Temperature 36.9 C Pulse Rate 83 90 84 Pulse Rate [Right Radial] Respiratory Rate 18 20 16 Blood Pressure 97/67 L 127/83 120/76 Pulse Oximetry 95 97 96 Oxygen Delivery 06/25/25 03:27 06/25/25 04:00 06/25/25 04:00 Temperature 36.6 C Pulse Rate 90 87 Pulse Rate [Right Radial] Respiratory Rate 10 L Blood Pressure 102/62 Pulse Oximetry 96 97 Oxygen Delivery Room Air 06/25/25 05:00 06/25/25 06:00 06/25/25 07:00 Temperature 36.6 C Pulse Rate 84 88 101 H Pulse Rate [Right Radial] Respiratory Rate 13 13 18 Blood Pressure 116/72 107/78 103/74 Pulse Oximetry 96 99 99 Oxygen Delivery Intake/Output Intake/Output: Intake & Output 06/22/25 06/23/25 06/24/25 06/25/25 23:59 23:59 23:59 23:59 Intake Total 3.2 480 240 Output Total 2300 900 Balance 3.2 -9551 -815 Meds/Results Medications: Active Medications Generic Name Dose Route Start Last Admin Trade Name Freq PRN Reason Stop Dose Admin Acetaminophen 650 mg 06/24/25 01:10 06/24/25 14:20 Acetaminophen 325 Mg Tablet PO 650 mg Q4H PRN Administration Mild Pain (1-3) or Fever Aspirin 81 mg 06/24/25 08:00 06/24/25 07:59 Aspirin 81 Mg Chewable Tablet PO 81 mg DAILY@0800 BAHMAN Administration Dextrose 12.5 gm 06/23/25 22:43 Dextrose 50% 25 Gm/50 Ml Syringe IV PUSH PRN PRN Hypoglycemia Protocol Empagliflozin 25 mg 06/24/25 09:00 06/24/25 11:12 Empagliflozin 25 Mg Tablet PO Not Given DAILY [facility]AHMAN Glucagon 1 mg 06/23/25 22:43 Glucagon For Inj 1 Mg Vial IM PRN PRN Hypoglycemia Protocol Glucose 15 gm 06/23/25 22:43 Glucose Oral Gel 15 Gm Of Glucse In 37.5 Gm Tube PO PRN PRN Hypoglycemia Protocol Dextrose 1,000 mls @ 100 mls/hr 06/23/25 22:43 Dextrose 5% 1,000 Ml IVPB PRN PRN Hypoglycemia Protocol Insulin Aspart 1 - 3 units 06/24/25 21:00 06/24/25 20:45 Insulin Aspart (*Bkc) 100 Units/Ml SUB-Q 1 units HS [facility]MAN Administration Protocol Insulin Aspart 3 - 6 units 06/24/25 12:00 06/24/25 16:51 Insulin Aspart (*Bkc) 100 Units/Ml SUB-Q Not Given TIDWM [facility] Protocol Insulin Glargine 50 units 06/25/25 21:00 Insulin Glargine (*Bkc) 100 Units/Ml SUB-Q HS [facility] Labetalol HCl 20 mg 06/24/25 11:05 Labetalol Hcl Inj 100 Mg/20 Ml Vial IV PUSH Q4H PRN SBP > 160 and HR> 60 -1st choice Lisinopril 5 mg 06/25/25 09:00 Lisinopril 5 Mg Tablet PO DAILY [facility] Metoprolol Tartrate 25 mg 06/25/25 09:00 Metoprolol Tartrate 25 Mg Tablet PO Q12HR [facility] Ondansetron HCl 4 mg 06/23/25 21:45 06/24/25 10:53 Ondansetron Inj 4 Mg/2 Ml Vial IV PUSH 4 mg Q8H PRN Administration Nausea And Vomiting Rosuvastatin Calcium 20 mg 06/24/25 09:00 06/24/25 08:00 Rosuvastatin 20 Mg Tablet PO 20 mg QAM [facility]MAN Administration Ticagrelor 90 mg 06/24/25 09:00 06/24/25 20:46 Ticagrelor 90 Mg Tablet PO 90 mg Q12HR [facility]MAN Administration Radiology Results: ITS Impressions Chest X-Ray 06/23/25 19:50 IMPRESSION: No acute pulmonary findings. Labs Labs: Laboratory Results - last 24 hr 06/24/25 06/24/25 06/24/25 08:35 11:24 16:49 POC Capillary Glucose 111 H 80 189 H 06/24/25 06/25/25 20:29 07:21 POC Capillary Glucose 211 H 189 H Quality VTE Prophylaxis VTE prophylaxis: pharmacologic ordered
[2025-06-25 08:28] LABS: Hematocrit 53.3 % (42.0-52.0); Hemoglobin 17.8 g/dL (14.0-18.0); Mean Corpuscular HGB Conc 33.4 g/dl (32-36); Mean Corpuscular Hemoglobin 28.3 pg (26-34); Mean Corpuscular Volume 84.7 fl (80-100); Platelet Count Result 299 k/mm3 (150-375); Red Blood Count 6.29 M/mm3 (4.6-6.20); White Blood Count 14.4 K/mm3 (4.5-10.0)
[2025-06-25] MEDS: TICAGRELOR 90 MG TABLET PO (08:44)
[2025-06-25] MEDS: ROSUVASTATIN 20 MG TABLET PO (08:44)
[2025-06-25] MEDS: EMPAGLIFLOZIN 25 MG TABLET PO (08:44)
[2025-06-25] MEDS: ASPIRIN 81 MG CHEWABLE TABLET PO (08:45)
[2025-06-25] MEDS: METOPROLOL TARTRATE 25 MG TABLET PO (08:45)
[2025-06-25 08:50] LABS: Alanine Aminotransferase 61 U/L (6-50); Albumin Level 3.9 g/dL (3.5-5.1); Alkaline Phosphatase 166 U/L (38-126); Anion Gap 8 mmol/L (4-12); Aspartate Amino Transferase 165 U/L (17-59); Bilirubin,Total 1.4 mg/dL (0.2-1.3); Blood Urea Nitrogen 12 mg/dL (9-20); Calcium 9.0 mg/dL (8.4-10.2); Carbon Dioxide 27 mmol/L (22-30); Chloride 97 mmol/L (98-107); Estimated CRCL calculation 70 ml/min; Estimated Glomerular Filt Rate > 60; Glucose 156 mg/dL (65-110); Magnesium 2.0 mg/dL (1.6-2.3); Potassium 4.5 mmol/L (3.4-5.0); Sodium 132 mmol/L (137-145); Total Protein 7.5 g/dL (6.3-8.2)
--- NOTE | 2025-06-25 09:28 | WPDINTPN2 ---
Assessment and Plan Assessment and Plan (1) ST elevation (STEMI) myocardial infarction: Code(s): I21.3 - ST elevation (STEMI) myocardial infarction of unspecified site Status: Acute Assessment and Plan: Patient with coronary disease who had a PCI in the past presented with new onset chest pain. Diagnosed with STEMI Had a cardiac catheterization on 06/23 and had 2 stents placed in LAD and left circumflex 06/25 Patient still having 2/10 chest pain. Patient had repeat cardiac catheterization and balloon angioplasty of the distal LAD lesion was done but no new stent was placed. IMTIAZ 2 flow was obtained Discussed with Cardiology Continue aspirin Brilinta Lisinopril beta-neal and statin Continue Jardiance Patient is now chest pain-free and asymptomatic. Card Assembler as reviewed echocardiogram. Patient will need need LifeVest due to low EF and follow-up with Cardiology as an outpatient Cardiology plans to discharge patient today (2) Hypertension: Code(s): I10 - Essential (primary) hypertension Status: Chronic Assessment and Plan: Continue metoprolol and lisinopril. Lisinopril dose increased to 5 Add p.r.n. labetalol (3) Hyperlipidemia: Code(s): E78.5 - Hyperlipidemia, unspecified Status: Chronic Assessment and Plan: Continue statin (4) Diabetes mellitus type 2 with complications, uncontrolled: Code(s): E11.8 - Type 2 diabetes mellitus with unspecified complications; E11.65 - Type 2 diabetes mellitus with hyperglycemia Status: Acute Assessment and Plan: Sliding scale insulin Continue Lantus Adjust accordingly Plan DVT prophylaxis -patient is ambulating Nutrition -consistent carbohydrate diet Code Status - Full Code Cardiology plans to discharge patient today Subjective Date/time seen: 06/25/25 Patient denies any complaint this morning. He sitting in a chair on room air with stable vital signs. He denies any chest pain. Patient denies fever, chest pain, shortness of breath, cough, nausea vomiting, abdominal pain,, diarrhea, headache or constipation. All the systems were reviewed and were negative Review of Systems Review of Systems: All systems reviewed & are unremarkable except as noted in HPI and below (HPI) Exam Narrative: General: Pt is alert awake and in NAD Lungs/Chest: Trachea central Clear BS B/L, No crackles or wheezing. Cardiac: RRR. Normal S1 S2. No murmurs Circulation: Pedal pulses are intact and symmetrical. Abdomen: Normal bowel sounds.. Soft. NT. ND. Extremities: No clubbing, cyanosis or edema. Warm right hand shows normal capillary refill, radial pulses palpable : Shen in place Neurologic: Follows commands. Moves all 4 extremities PERRL AO x3 Skin: No Rash Objective Data Vital Signs Vital Signs: Vital Signs - 24 hr 06/24/25 10:21 06/24/25 10:21 06/24/25 10:30 Temperature Pulse Rate 91 86 Pulse Rate [Right Radial] 91 Respiratory Rate 20 12 Blood Pressure 167/110 H 158/107 H Pulse Oximetry 96 97 Oxygen Delivery Room Air Room Air 06/24/25 10:30 06/24/25 10:45 06/24/25 10:45 Temperature Pulse Rate 89 Pulse Rate [Right Radial] 86 89 Respiratory Rate 13 Blood Pressure 163/112 H Pulse Oximetry 97 Oxygen Delivery Room Air 06/24/25 11:00 06/24/25 11:00 06/24/25 11:30 Temperature Pulse Rate 84 93 Pulse Rate [Right Radial] 84 Respiratory Rate 12 14 Blood Pressure 159/110 H 160/111 H Pulse Oximetry 98 97 Oxygen Delivery Room Air Room Air 06/24/25 11:30 06/24/25 12:00 06/24/25 12:00 Temperature Pulse Rate 93 92 Pulse Rate [Right Radial] 93 Respiratory Rate 14 Blood Pressure Pulse Oximetry 97 Oxygen Delivery Room Air 06/24/25 12:00 06/24/25 12:59 06/24/25 13:00 Temperature 36.6 C Pulse Rate 92 96 94 Pulse Rate [Right Radial] Respiratory Rate 18 18 Blood Pressure 156/96 H 136/93 H Pulse Oximetry 98 96 Oxygen Delivery 06/24/25 14:00 06/24/25 14:00 06/24/25 15:00 Temperature 36.4 C L Pulse Rate 94 95 107 H Pulse Rate [Right Radial] Respiratory Rate 17 18 Blood Pressure 154/99 H 139/101 H Pulse Oximetry 98 98 Oxygen Delivery 06/24/25 16:00 06/24/25 16:00 06/24/25 16:00 Temperature 36.4 C L Pulse Rate 97 97 97 Pulse Rate [Right Radial] Respiratory Rate 27 H 27 H Blood Pressure 137/92 H Pulse Oximetry 98 98 Oxygen Delivery Room Air 06/24/25 17:00 06/24/25 18:00 06/24/25 18:00 Temperature 36.6 C Pulse Rate 94 94 97 Pulse Rate [Right Radial] Respiratory Rate 24 H 24 H Blood Pressure 132/98 H 138/94 H Pulse Oximetry 98 98 Oxygen Delivery 06/24/25 19:00 06/24/25 20:00 06/24/25 20:00 Temperature 36.6 C Pulse Rate 84 91 Pulse Rate [Right Radial] Respiratory Rate 20 20 Blood Pressure 117/73 117/73 Pulse Oximetry 96 96 95 Oxygen Delivery Room Air 06/24/25 20:00 06/24/25 20:44 06/24/25 21:00 Temperature 36.6 C Pulse Rate 87 100 92 Pulse Rate [Right Radial] Respiratory Rate 20 Blood Pressure 120/96 H Pulse Oximetry 96 Oxygen Delivery 06/24/25 22:00 06/24/25 22:00 06/24/25 23:00 Temperature Pulse Rate 87 87 97 Pulse Rate [Right Radial] Respiratory Rate 20 20 Blood Pressure 131/84 131/84 Pulse Oximetry 98 98 Oxygen Delivery 06/25/25 00:00 06/25/25 00:00 06/25/25 00:00 Temperature 36.6 C Pulse Rate 93 95 Pulse Rate [Right Radial] Respiratory Rate 18 Blood Pressure 97/67 L Pulse Oximetry 96 95 Oxygen Delivery Room Air 06/25/25 01:00 06/25/25 02:00 06/25/25 03:00 Temperature 36.9 C Pulse Rate 83 90 84 Pulse Rate [Right Radial] Respiratory Rate 18 20 16 Blood Pressure 97/67 L 127/83 120/76 Pulse Oximetry 95 97 96 Oxygen Delivery 06/25/25 03:27 06/25/25 04:00 06/25/25 04:00 Temperature 36.6 C Pulse Rate 90 87 Pulse Rate [Right Radial] Respiratory Rate 10 L Blood Pressure 102/62 Pulse Oximetry 96 97 Oxygen Delivery Room Air 06/25/25 05:00 06/25/25 06:00 06/25/25 07:00 Temperature 36.6 C Pulse Rate 84 88 101 H Pulse Rate [Right Radial] Respiratory Rate 13 13 18 Blood Pressure 116/72 107/78 103/74 Pulse Oximetry 96 99 99 Oxygen Delivery 06/25/25 08:00 06/25/25 08:00 06/25/25 08:00 Temperature 36.7 C Pulse Rate 88 97 Pulse Rate [Right Radial] Respiratory Rate 17 Blood Pressure 102/80 Pulse Oximetry 97 Oxygen Delivery Room Air 06/25/25 08:45 06/25/25 09:00 Temperature Pulse Rate 91 89 Pulse Rate [Right Radial] Respiratory Rate 18 Blood Pressure 114/84 Pulse Oximetry 97 Oxygen Delivery Intake/Output Intake/Output: Intake & Output 06/22/25 06/23/25 06/24/25 06/25/25 23:59 23:59 23:59 23:59 Intake Total 3.2 480 480 Output Total 2300 1600 Balance 3.2 -9410 -1778 Meds/Results Medications: Active Medications Generic Name Dose Route Start Last Admin Trade Name Freq PRN Reason Stop Dose Admin Acetaminophen 650 mg 06/24/25 01:10 06/24/25 14:20 Acetaminophen 325 Mg Tablet PO 650 mg Q4H PRN Administration Mild Pain (1-3) or Fever Aspirin 81 mg 06/24/25 08:00 06/25/25 08:45 Aspirin 81 Mg Chewable Tablet PO 81 mg DAILY@0800 BAHMAN Administration Dextrose 12.5 gm 06/23/25 22:43 Dextrose 50% 25 Gm/50 Ml Syringe IV PUSH PRN PRN Hypoglycemia Protocol Empagliflozin 25 mg 06/24/25 09:00 06/25/25 08:44 Empagliflozin 25 Mg Tablet PO 25 mg DAILY [facility]MAN Administration Glucagon 1 mg 06/23/25 22:43 Glucagon For Inj 1 Mg Vial IM PRN PRN Hypoglycemia Protocol Glucose 15 gm 06/23/25 22:43 Glucose Oral Gel 15 Gm Of Glucse In 37.5 Gm Tube PO PRN PRN Hypoglycemia Protocol Dextrose 1,000 mls @ 100 mls/hr 06/23/25 22:43 Dextrose 5% 1,000 Ml IVPB PRN PRN Hypoglycemia Protocol Insulin Aspart 1 - 3 units 06/24/25 21:00 06/24/25 20:45 Insulin Aspart (*Bkc) 100 Units/Ml SUB-Q 1 units HS [facility]MAN Administration Protocol Insulin Aspart 3 - 6 units 06/24/25 12:00 06/25/25 08:45 Insulin Aspart (*Bkc) 100 Units/Ml SUB-Q Not Given TIDWM [facility] Protocol Insulin Glargine 50 units 06/25/25 21:00 Insulin Glargine (*Bkc) 100 Units/Ml SUB-Q HS [facility] Labetalol HCl 20 mg 06/24/25 11:05 Labetalol Hcl Inj 100 Mg/20 Ml Vial IV PUSH Q4H PRN SBP > 160 and HR> 60 -1st choice Lisinopril 5 mg 06/25/25 09:00 06/25/25 08:45 Lisinopril 5 Mg Tablet PO 5 mg DAILY [facility]MAN Administration Metoprolol Tartrate 25 mg 06/25/25 09:00 06/25/25 08:45 Metoprolol Tartrate 25 Mg Tablet PO 25 mg Q12HR [facility] Administration Ondansetron HCl 4 mg 06/23/25 21:45 06/24/25 10:53 Ondansetron Inj 4 Mg/2 Ml Vial IV PUSH 4 mg Q8H PRN Administration Nausea And Vomiting Rosuvastatin Calcium 20 mg 06/24/25 09:00 06/25/25 08:44 Rosuvastatin 20 Mg Tablet PO 20 mg QAM [facility]AHMAN Administration Ticagrelor 90 mg 06/24/25 09:00 06/25/25 08:44 Ticagrelor 90 Mg Tablet PO 90 mg Q12HR [facility]AHMAN Administration Radiology Results: ITS Impressions Chest X-Ray 06/23/25 19:50 IMPRESSION: No acute pulmonary findings. Labs Labs: Laboratory Results - last 24 hr 06/24/25 06/24/25 06/24/25 11:24 16:49 20:29 WBC RBC Hgb Hct MCV MCH MCHC RDW Plt Count MPV Sodium Potassium Chloride Carbon Dioxide Anion Gap BUN Creatinine Estim Creat Clear Calc Estimated GFR Glucose POC Capillary Glucose 80 189 H 211 H Calcium Phosphorus Magnesium Total Bilirubin AST ALT Alkaline Phosphatase Total Protein Albumin 06/25/25 06/25/25 07:21 08:23 WBC 14.4 H RBC 6.29 H Hgb 17.8 Hct 53.3 H MCV 84.7 MCH 28.3 MCHC 33.4 RDW 17.2 H Plt Count 299 MPV 8.8 Sodium 132 L Potassium 4.5 Chloride 97 L Carbon Dioxide 27 Anion Gap 8 BUN 12 D Creatinine 1.14 Estim Creat Clear Calc 70 Estimated GFR > 60 Glucose 156 H POC Capillary Glucose 189 H Calcium 9.0 Phosphorus 3.5 Magnesium 2.0 Total Bilirubin 1.4 H AST 165 H ALT 61 H Alkaline Phosphatase 166 H Total Protein 7.5 Albumin 3.9 Quality VTE Prophylaxis VTE prophylaxis: pharmacologic ordered
[2025-06-25] MEDS: INSULIN ASPART (*BKC) 100 UNITS/ML SUB-Q (11:42)
--- NOTE | 2025-06-25 13:16 | PM.DS ---
DS: Admitting Diagnosis Discharge Date 06/25/2025 Admitting Diagnosis Anterior STEMI DS: Discharge Diagnosis Discharge Diagnosis (1) ST elevation (STEMI) myocardial infarction: Code(s): I21.3 - ST elevation (STEMI) myocardial infarction of unspecified site Status: Acute (2) Hypertension: Code(s): I10 - Essential (primary) hypertension Status: Chronic (3) Hyperlipidemia: Code(s): E78.5 - Hyperlipidemia, unspecified Status: Chronic (4) Diabetes mellitus type 2 with complications, uncontrolled: Code(s): E11.8 - Type 2 diabetes mellitus with unspecified complications; E11.65 - Type 2 diabetes mellitus with hyperglycemia Status: Acute DS: Summary Hospital Course Reason for hospitalization: Chest pain Hospital Course: This 64-year-old patient with past history of diabetes, hypertension, prior coronary stents presents to the hospital with anterior ST elevation. He was taken to the slab off mill tender by Dr. 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 He received a stent to large OM and a stent to ostial LAD into the left main. Next day was having chest pain and therefore decided to take him back to the slab off mill tender. I passed the wire to distal LAD and try to put a stent in the mid LAD with inability to pass the balloon despite multiple attempts. Echocardiogram showed ejection fraction 30%. Clinically today patient was doing very well. Denies chest pain, right groin appeared to be okay without hematoma. No significant arrhythmias on telemetry. In due to low ejection fraction I did call the [facility] and will arrange for LifeVest prior to discharge from the hospital. Counseled the patient regarding importance of life vest. We kept patient on beta-neal. Counseled the patient regarding importance of taking aspirin and Brilinta. Status at Discharge Cognitive/behavioral status at discharge: Normal Functional status at discharge: independent ambulation Overall status at discharge: patient is back to baseline Time Spent with Patient Time attestation: Total time spent providing and/or coordinating discharge services: 37 minutes. Time spent: Greater than 30 minutes Specific discharge activities: Make sure to take aspirin, Brilinta. Make sure to use the LifeVest. Exam Const: General: no acute distress HENMT: Mouth: Yes moist mucous membranes Eyes: Sclera: sclerae normal Neck: Neck: supple Resp: Auscultation: clear to auscultation bilaterally Cardio: Rate: regular rate Rhythm: regular rhythm Heart sounds: no murmurs GI: Inspection: non-distended Skin: General skin exam: normal color Rashes: no rashes noted Neuro: Motor exam (neuro): 5/5 motor strength present throughout Extrem: General: normal to inspection Psych: Mental Status: mental status grossly normal DS: Data Data Completed and Pending Completed studies during hospitalization: Cardiac catheterization Pending studies at discharge: Non Labs on day of discharge: Labs from last 24 hours 06/25/25 06/25/25 06/25/25 11:14 08:23 07:21 WBC 14.4 H RBC 6.29 H Hgb 17.8 Hct 53.3 H MCV 84.7 MCH 28.3 MCHC 33.4 RDW 17.2 H Plt Count 299 MPV 8.8 Activ Coag Time Kaolin Sodium 132 L Potassium 4.5 Chloride 97 L Carbon Dioxide 27 Anion Gap 8 BUN 12 D Creatinine 1.14 Estim Creat Clear Calc 70 Estimated GFR > 60 Glucose 156 H POC Capillary Glucose 241 H 189 H Calcium 9.0 Phosphorus 3.5 Magnesium 2.0 Total Bilirubin 1.4 H AST 165 H ALT 61 H Alkaline Phosphatase 166 H Total Protein 7.5 Albumin 3.9 06/24/25 06/24/25 06/23/25 20:29 16:49 21:24 WBC RBC Hgb Hct MCV MCH MCHC RDW Plt Count MPV Activ Coag Time Kaolin 240 H Sodium Potassium Chloride Carbon Dioxide Anion Gap BUN Creatinine Estim Creat Clear Calc Estimated GFR Glucose POC Capillary Glucose 211 H 189 H Calcium Phosphorus Magnesium Total Bilirubin AST ALT Alkaline Phosphatase Total Protein Albumin 06/23/25 20:51 WBC RBC Hgb Hct MCV MCH MCHC RDW Plt Count MPV Activ Coag Time Kaolin 215 H Sodium Potassium Chloride Carbon Dioxide Anion Gap BUN Creatinine Estim Creat Clear Calc Estimated GFR Glucose POC Capillary Glucose Calcium Phosphorus Magnesium Total Bilirubin AST ALT Alkaline Phosphatase Total Protein Albumin Discharge Plan Discharge Attending physician on discharge: Amber Fuller Discharging Clinician: Amber Fuller Anticipated Discharge Date/Time: 06/25/25 12:36 Patient Disposition: Home Activity: october shower Diet: heart healthy Wound Care Instructions: follow printed instructions Discharge Instructions: [facility] [address] [place], [place] [id number] DISCHARGE INSTRUCTIONS - POST RADIAL CATH Activity 1. No driving for 24 hours. 2. No lifting more than 5 lb with affected arm for 1 week. 3. May shower ( tomorrow) but no excessive soaking of affected hand/wrist (such as washing dishes), swimming pool or hot tub for 5 days. Wound Care 1. May remove arm board in the morning. 2. May remove gauze dressing in the morning and put Band-Aid over affected radial site. Keep site covered for 3 days. 3. Observe for redness, drainage, swelling or bleeding. Medications DO NOT STOP YOUR MEDICATIONS ONLY YOUR COMMUNITY LIVING SPECIALIST CAN STOP THE FOLLOWING MEDICATIONS - PLEASE CALL THE OFFICE WITH QUESTIONS. *Aspirin *Ticagrelor (Brilinta) *Atorvastatin *Lisinopril or ARB *Metoprolol tartrate or succinate *Clopidogrel (Plavix) *Prasugrel (Effient) Important Reminders 1. Keep your stent card in your wallet at all times 2. Follow a heart healthy diet paying extra attention to cholesterol and fats. 3. Stay hydrated. 4. If you have chest pain unrelieved by rest or nitroglycerin (if prescribed) call 911 immediately. 5. If you miss one dose of Brilinta (if prescribed) take a tablet at the next time due. If you miss 2 doses take a tablet when you remember and resume at the next time due. *For any other questions please call the office at [phone]. Office hours are 8AM 4:30PM Monday through Monday. Patient Instructions: Antibiotic Form, Heart Attack (DC), Coronary Artery Disease (DC), Acute Coronary Syndrome (GEN), Cardiac Rehabilitation (DC), Heart Catheterization (DC) Patient Language: Urdu Stand Alone Forms: General Discharge Information Follow-up/Referrals: Amber Fuller MD [Physician, Cardiology] Discharge Medications: New ticagrelor [Brilinta] 90 mg Tablet 90 mg PO Q12HR Qty: 180 2RF aspirin [Children's Aspirin] 81 mg Tablet,Chewable 81 mg PO DAILY@0800 Qty: 90 1RF metoprolol tartrate 25 mg Tablet 25 mg PO Q12HR Qty: 180 2RF Continued rosuvastatin 20 mg tablet 20 mg PO DAILY lisinopril 2.5 mg tablet 5 mg PO DAILY Qty: 0 0RF Jardiance 25 mg tablet 25 mg PO DAILY insulin degludec [Tresiba FlexTouch U-100] 100 unit/mL (3 mL) insulin pen 75 unit SUBCUT QAM Mounjaro 7.5 mg/0.5 mL pen injector 7.5 mg SUBCUT WEEKLY Discontinued aspirin 325 mg Tablet 325 mg PO DAILY metoprolol succinate 50 mg tablet extended release 24 hr 50 mg PO .Q12HR Date of admission: 06/23/25 19:13 Primary Care Provider: PHYSICIAN,DEPUTY DIRECTOR OF FINANCE Admitting Provider: Kavon Snow Attending physician on admission: Kavon Snow Condition: Serious
--- NOTE | 2025-06-25 15:10 | PC.NURSE ---
Discharge papers reviewed with pt and his spouse. Pt's brought Matt to hospital. While reviewing medication, it was noted that pt does not have Metoprolol Tartrate. Spoke with Abigail Foley NP who states that Rx was sent to pt's pharmacy. Asked pt to follow up with [facility] as Rx should be available to them. Pt verbalized understanding of all instructions.
== END 2025-06-25 15:08 | disposition home or self-care (01) | DRG 322 ==
LOC: ANHED 22:38 → ANHICU 22:39
PROVIDERS: Internal Medicine; Admitting Provider Internal Medicine Cardiovascular Disease; Emergency Provider Emergency Medicine; Visit Provider Internal Medicine Cardiovascular Disease
PROC: 4A023N7 Measurement of Cardiac Sampling and Pressure, Left Heart, Percutaneous Approach (ICD-10-PCS; CPT 93452; principal; 2025-06-23 20:00)
PROC: 027034Z Dilation of Coronary Artery, One Artery with Drug-eluting Intraluminal Device, Percutaneous Approach (ICD-10-PCS; CPT 92928; 2025-06-23 20:00)
PROC: 027034Z Dilation of Coronary Artery, One Artery with Drug-eluting Intraluminal Device, Percutaneous Approach (ICD-10-PCS; CPT 92928; 2025-06-23 20:00)
PROC: 027135Z Dilation of Coronary Artery, Two Arteries with Two Drug-eluting Intraluminal Devices, Percutaneous Approach (ICD-10-PCS; 2025-06-23 20:00)
PROC: 027135Z Dilation of Coronary Artery, Two Arteries with Two Drug-eluting Intraluminal Devices, Percutaneous Approach (ICD-10-PCS; CPT 92979; 2025-06-23 20:00)
PROC: 02703ZZ Dilation of Coronary Artery, One Artery, Percutaneous Approach (ICD-10-PCS; CPT 92920; 2025-06-24 09:00)
PROC: 4A023N7 Measurement of Cardiac Sampling and Pressure, Left Heart, Percutaneous Approach (ICD-10-PCS; 2025-06-24 09:00)
DX: I21.09 ST elevation (STEMI) myocardial infarction involving other coronary artery of anterior wall (principal); T82.897A Other specified complication of cardiac prosthetic devices, implants and grafts, initial encounter; I25.5 Ischemic cardiomyopathy; I25.10 Atherosclerotic heart disease of native coronary artery without angina pectoris; I25.82 Chronic total occlusion of coronary artery; I10 Essential (primary) hypertension; E11.9 Type 2 diabetes mellitus without complications; E78.2 Mixed hyperlipidemia; I25.2 Old myocardial infarction; Z79.4 Long term (current) use of insulin; Z79.82 Long term (current) use of aspirin; Z95.5 Presence of coronary angioplasty implant and graft
CPT/HCPCS: 36415; 71045; 80053; 80061; 82948; 83036; 83690; 83735; 84100; 84484; 85025; 85027; 85610; 85730; 92920; 92978; 92979; 93005; 93458; 99291; A9270; C1725; C1753; C1760; C1769; C1874; C1887; C1894; C8929; C9600; C9606; G0269; J0583; J1644; J1815; J2003; J2250; J2305; J2405; J3010; J7040; Q9957